=== PATIENT | female | born 1970 | race Caucasian/White ===

== ENCOUNTER 2017-06-20 08:00 | Outpatient (RCR) | payer SELFPAY ==
[~2017-06-20 08:00] MED LIST: ACET-1966 PO; DIPH-543 PO; ESTR1PAT72 TD; HYDR2TAB4 PO; IBUP-1671 PO; Ibuprofen PO; LOPE2CAP88 PO; PEN400 PO; PEP PO; PER PO; THIA100T58 PO; TRIA15CR40 TP; ZINC56.718 TP
[2017-06-20 14:34] LABS: PLATELET COUNT, AUTOMATED 218 K/uL (150-450)
[2017-06-20 14:52] LABS: INR 2.41
[2017-06-21] MEDS ORDERED: FLUO-201 PO (09:44)
[2017-06-21] MEDS ORDERED: POTA99TA6 PO (09:44)
[2017-06-21] MEDS ORDERED: FLUO-177 PO (11:44)
[2017-06-21] MEDS ORDERED: CYAN25004 PO (11:45)
[2017-06-22 10:28] VITALS: BMI 24.5
[2017-06-22] MEDS ORDERED: LACT10SO58 PO (10:31)
[2017-06-22] MEDS ORDERED: SPIR25TA78 PO (10:31)
== END 2017-06-20 18:00 | disposition home or self-care (01) ==
LOC: US 08:00 → LAB 14:18 → EDSTATUS 14:53 → US 18:00
PROVIDERS: ATTEND Family Medicine
DX: Z01.812 Encounter for preprocedural laboratory examination (principal); K74.69 Other cirrhosis of liver
CPT/HCPCS: 36415; 82040; 82247; 82310; 82374; 82435; 82565; 82947; 84075; 84132; 84155; 84295; 84450; 84460; 84520; 85025; 85610; 85730

== ENCOUNTER 2017-07-22 20:43 | Inpatient (IN) | payer BC ==
[~2017-07-22] VITALS: Ht 165.1 cm; Wt 59.9 kg
[~2017-07-22 20:43] MED LIST changes: +CYAN25004 PO; +FLUO-177 PO; +FLUO-201 PO; +LACT10SO58 PO; +POTA99TA6 PO; +SPIR25TA78 PO
--- NOTE | 2017-07-22 20:56 | ER Report ---
History and Physical Time Seen By MD: 20:56 HPI/ROS CHIEF COMPLAINT: epigastric and chest pain HISTORY OF PRESENT ILLNESS: This is a 47 year old female. She came to the ER tonight because of severe chest and epigastric area pain. Started about 2 hours ago. Worsens with movement and deep breaths. Started after eating tonight. Has end stage alcoholic cirrhosis. Has had frequent paracentesis from Dr. Moy recently. She has been sober for 6 months, but had a relapse on through Tuesday last week. Last drink on Tuesday. Jaundice and icterus present, but stable and unchanged. She has occasional abdominal pains, but this feels different to her. She has had subjective fevers and chills at home as well. Was admitted in June for hypokalemia and anemia. She has diffuse muscle and joint pains as well. Bowel movement today, and no change there. Normal urination. No sore throat or congestion or cough. REVIEW OF SYSTEMS: As above. Allergies: Coded Allergies: No Known Drug Allergies (Verified , 06/21/17) Home Meds Active Scripts Lactulose (LACTULOSE) 10 Gm/15 Ml Solution, 10 GM PO QDAY, #473 ML Prov:MARIAM SEAY DO 06/22/17 Spironolactone (SPIRONOLACTONE) 25 Mg Tablet, 25 MG PO QDAY, #30 TAB Prov:MARIAM SEAY DO 06/22/17 Thiamine Hcl (VITAMIN B-1) 100 Mg Tablet, 100 MG PO QDAY for 30 Days, #30 TAB Prov:RAQUEL PIZARRO MD 04/07/17 Reported Medications Cyanocobalamin (Vitamin B-12) (Vitamin B12) 2,500 Mcg Tablet, 1 TAB PO QDAY 06/21/17 Fluoxetine Hcl (FLUOXETINE HCL) 20 Mg Capsule, 1 CAP PO QDAY, CAPSULE 06/21/17 Potassium Gluconate (POTASSIUM) 99 Mg Tablet, 99 MG PO 06/21/17 Reviewed Nurses Notes: Yes Hx Smoking: No Smoking Status: Never Smoker Hx Substance Use Disorder: No Hx Alcohol Use: Yes Constitutional Vital Sign - Last 24 Hours 07/22/17 07/22/17 07/22/17 07/22/17 20:48 20:55 21:13 21:43 Temp 99.6 Pulse 80 83 Resp 23 49 20 B/P (MAP) 102/57 (72) 102/57 Pulse Ox 98 100 97 O2 Delivery Room Air Physical Exam General Appearance: The patient is alert. No acute distress. Eyes: Pupils are equal, round. Reactive to light. She has scleral icterus and jaundice. Extraocular movements are intact. ENT: Mucous membranes are moist. Normal oral mucosa. Posterior oropharynx is normal. Neck: Supple and non tender. No lymphadenopathy. Respiratory: Lungs are clear to auscultation. She does have some increase in her epigastric and anterior chest pain with deep breaths. Cardiovascular: Regular rate and rhythm. No murmurs, gallops or rubs. Gastrointestinal: Abdomen is tender throughout. Distended with fluid wave. Worst pain in the epigastric area. Distended. Guarding with rebound. Hypoactive bowel sounds. No costovertebral angle tenderness with percussion. Neurological: Alert and oriented x3. No focal neurologic deficits. Generalized weakness. Skin: Warm and dry. Jaundice Musculoskeletal: Extremities have aches. Full range of motion. No tenderness in palpation of the cervical, thoracic and lumbar spine. DIFFERENTIAL DIAGNOSIS: After history and physical exam, differential diagnosis was considered for patient with epigastric and chest pain due to cardiac workup and look for other causes, with her jaundice and ascites I worry about spontaneous bacterial peritonitis. She has a history of anemia and hypokalemia on her last visit so we'll need to look at electrolytes and her blood count. Medical Decision Making Data Points Result Diagram: 07/22/17205407/22/172054 Laboratory Hematology Test 07/22/17 20:55 07/22/17 21:23 Red Blood Count 2.14 M/uL (4.17-5.56) Mean Corpuscular Volume 101.5 fL (80.0-96.0) Mean Corpuscular Hemoglobin 35.5 pg (26.0-33.0) Mean Corpuscular Hemoglobin Concent 35.0 g/dL (32.0-36.0) Red Cell Distribution Width 19.1 % (11.5-14.5) Mean Platelet Volume 7.3 fL (7.2-11.1) Neutrophils (%) (Auto) 67.1 % (39.4-72.5) Lymphocytes (%) (Auto) 24.0 % (17.6-49.6) Monocytes (%) (Auto) 6.3 % (4.1-12.4) Eosinophils (%) (Auto) 1.9 % (0.4-6.7) Basophils (%) (Auto) 0.7 % (0.3-1.4) Nucleated RBC Relative Count (auto) 0.1 /100WBC Neutrophils # (Auto) 11.1 K/uL (2.0-7.4) Lymphocytes # (Auto) 4.0 K/uL (1.3-3.6) Monocytes # (Auto) 1.0 K/uL (0.3-1.0) Eosinophils # (Auto) 0.3 K/uL (0.0-0.5) Basophils # (Auto) 0.1 K/uL (0.0-0.1) Nucleated RBC Absolute Count (auto) 0.01 K/uL Peripheral Blood Smear Y/N Sodium Level 131 mmol/L (137-145) Potassium Level 2.4 mmol/L (3.5-5.0) Chloride Level 95 mmol/L (98-107) Carbon Dioxide Level 25 mmol/L (22-31) Blood Urea Nitrogen 9 mg/dl (7-18) Creatinine 0.70 mg/dl (0.52-1.04) Glomerular Filtration Rate Calc > 60.0 Random Glucose 101 mg/dl (75-110) Calcium Level 7.9 mg/dl (8.4-10.2) Total Bilirubin 7.2 mg/dl (0.2-1.3) Aspartate Amino Transf (AST/SGOT) 111 U/L (0-35) Alanine Aminotransferase (ALT/SGPT) 39 U/L (0-56) Alkaline Phosphatase 212 U/L (0-126) Troponin I < 0.012 ng/ml Total Protein 7.6 gm/dl (6.3-8.2) Albumin 2.6 g/dl (3.5-5.0) Amylase Level 72 U/L (0-110) Lipase 206 U/L (23-300) Lactate 4.7 mmol/L (0.7-2.1) Chemistry Test 07/22/17 20:55 07/22/17 21:23 White Blood Count 16.5 k/uL (4.5-11.0) Red Blood Count 2.14 M/uL (4.17-5.56) Hemoglobin 7.6 g/dL (12.0-16.0) Hematocrit 21.8 % (34.0-47.0) Mean Corpuscular Volume 101.5 fL (80.0-96.0) Mean Corpuscular Hemoglobin 35.5 pg (26.0-33.0) Mean Corpuscular Hemoglobin Concent 35.0 g/dL (32.0-36.0) Red Cell Distribution Width 19.1 % (11.5-14.5) Platelet Count 150 K/uL (150-450) Mean Platelet Volume 7.3 fL (7.2-11.1) Neutrophils (%) (Auto) 67.1 % (39.4-72.5) Lymphocytes (%) (Auto) 24.0 % (17.6-49.6) Monocytes (%) (Auto) 6.3 % (4.1-12.4) Eosinophils (%) (Auto) 1.9 % (0.4-6.7) Basophils (%) (Auto) 0.7 % (0.3-1.4) Nucleated RBC Relative Count (auto) 0.1 /100WBC Neutrophils # (Auto) 11.1 K/uL (2.0-7.4) Lymphocytes # (Auto) 4.0 K/uL (1.3-3.6) Monocytes # (Auto) 1.0 K/uL (0.3-1.0) Eosinophils # (Auto) 0.3 K/uL (0.0-0.5) Basophils # (Auto) 0.1 K/uL (0.0-0.1) Nucleated RBC Absolute Count (auto) 0.01 K/uL Peripheral Blood Smear Y/N Glomerular Filtration Rate Calc > 60.0 Calcium Level 7.9 mg/dl (8.4-10.2) Total Bilirubin 7.2 mg/dl (0.2-1.3) Aspartate Amino Transf (AST/SGOT) 111 U/L (0-35) Alanine Aminotransferase (ALT/SGPT) 39 U/L (0-56) Alkaline Phosphatase 212 U/L (0-126) Troponin I < 0.012 ng/ml Total Protein 7.6 gm/dl (6.3-8.2) Albumin 2.6 g/dl (3.5-5.0) Amylase Level 72 U/L (0-110) Lipase 206 U/L (23-300) Lactate 4.7 mmol/L (0.7-2.1) EKG/Imaging EKG Interpretation 12 lead EKG: Rhythm: Because of tremulousness, difficult to tell with artifact on the EKG but looks like it is sinus rhythm although the machine reads it as atrial fibrillation. It is difficult to tell. Rate is 82. Manito: normal QRS: normal ST segments: Nonspecific T waves but no elevation or depression Imaging Abdominal series with single view of the chest: 07/22/2017 9:13 PM HISTORY: Abdominal pain. COMPARISON:none. FINDINGS: There is dilated loop of small bowel in the left mid abdomen with positive small bowel gas. Small amount stool seen throughout colon. Abdominal soft tissues are grossly normal without suspicious lucencies or abnormal calcifications. No acute bony abnormality. The left lower lobe does show patchy hazy opacity in the retrocardiac area. The remaining lung michele are clear. No effusion or pneumothorax or discrete nodule. Old right rib fractures. No acute bony abnormality. IMPRESSION: 1. Abdominal findings suggestive early small bowel obstruction. Follow-up x-ray can reevaluate the bowel gas pattern. 2. Hazy opacities seen in the left retrocardiac area. This could be due to accentuation from the low lung volumes versus early infiltrate. I called report to WALTER TAYLOR at 07/22/2017 10:22 PM. Report Dictated By: Jay Jay Root at 07/22/2017 10:15 PM COMPUTED TOMOGRAPHY ABDOMEN AND PELVIS WITHOUT INTRAVENOUS CONTRAST DATE OF EXAM: 07/22/2017 10:26 PM INDICATION: Abdominal pain. COMPARISON: Same-day radiographs, CT abdomen and pelvis 03/25/2017. TECHNIQUE: Noncontrast abdomen and pelvis CT performed. Sagittal and coronal reconstructions were performed. One of the following dose optimization techniques was utilized in the performance of this exam: Automated exposure control; adjustment of the mA and/or kV according to the patient's size; or use of an iterative reconstruction technique. Specific details can be referenced in the facility's radiology CT exam operational policy. FINDINGS: Lung bases: Small volume left pleural effusion. Heart size is upper limit normal. Hypoattenuating blood pool. Liver: The liver is cirrhotic in appearance, and has likely decreased in volume since 03/25/2017 which could indicate worsened fibrosis. Venous collaterals noted. Gallbladder and bile ducts: Probable gallstones. No definite evidence of cholecystitis. Spleen: Mild splenomegaly. Pancreas: Unremarkable. Adrenals: Normal. Kidneys, ureters and bladder: Kidneys and ureters are grossly normal. Urinary bladder is decompressed. Retroperitoneum and aorta: Normal caliber aorta with mild atherosclerotic ossification. No adenopathy. GI tract, mesentery and peritoneum: There is fatty infiltration wall of the cecum and ascending colon. No evidence of obstruction. No pneumatosis or pneumoperitoneum. Moderate to large volume ascites, significantly increased compared to the prior examination. Uterus and adnexa: Probable hysterectomy. Bones and soft tissues: No suspicious lesion. Diffuse body wall edema remote right rib fractures. Incompletely imaged bilateral breast implants. IMPRESSION: 1. Cirrhotic appearing liver that has likely decreased in volume since 2016 which could indicate worsened fibrosis. 2. Moderate to large volume of ascites, significantly increased compared to prior 03/25/2017. 3. Small left pleural effusion. 4. Hypoattenuating blood pool suggestive of anemia. Report Dictated By: Juan Antonio Sabillon MD at 07/22/2017 10:59 PM ED Course/Re-evaluation Clinical Indication for ER IV: Hydration, IV Access ED Course After the initial evaluation, the patient had a liter of normal saline started at 150cc/hr. She was given Morphine and Zofran for pain and nausea. Labs showed critical values of her H/H and potassium. Lactate was elevated. She was afebrile , but had been having subjective fevers. Based on her ascites and leukocytosis and pain, concerned about possibility of spontaneous bacterial peritonitis as well. Abdominal x-ray and CT scan as noted above. Discussed the case with Dr. Estrada for admission and consulted general surgery as well for paracentesis. Started Zosyn in the ER and obtained blood and urine cultures. Decision to Disposition Date: Jul 22, 2017 Decision to Disposition Time: 23:30 Depart Departure Latest Vital Signs Vital Signs Date Time Temp Pulse Resp B/P (MAP) Pulse Ox O2 Delivery O2 Flow Rate FiO2 07/22/17 21:43 20 97 07/22/17 21:13 83 07/22/17 20:55 99.6 102/57 Room Air Impression: Primary Impression: Anemia Additional Impressions: Hypokalemia Ascites due to alcoholic cirrhosis Condition: Condition Unchanged Disposition: Admitted from ER Referrals: AMIRAH RUTHERFORD DO (PCP) Problem Qualifiers Primary Impression: Anemia Anemia type: unspecified type Qualified Codes: D64.9 - Anemia, unspecified WALTER TAYLOR MD Jul 22, 2017 20:56
[2017-07-22] MEDS ORDERED: MORPHINE 4 MG/ML SYR IVP ONE (21:15)
[2017-07-22] MEDS ORDERED: ONDANSETRON 4 MG/2 ML VIAL IVP ONE (21:15)
[2017-07-22] MEDS ORDERED: PANTOPRAZOLE SOD 40 MG IV VIAL IVP ONE (21:15)
[2017-07-22 21:23] LABS: PLATELET COUNT, AUTOMATED 150 K/uL (150-450)
--- NOTE | 2017-07-22 21:31 | EKG ---
FACILITY: [facility] - [place] PATIENT NAME: QUITA MCLAUGHLIN : [id number] MR: [id number] V: [id number] EXAM DATE: ORDERING PHYSICIAN: WALTER TAYLOR TECHNOLOGIST: Test Reason : Blood Pressure : / mmHG Vent. Rate : 082 BPM Atrial Rate : 078 BPM P-R Int : 000 ms QRS Dur : 050 ms QT Int : 456 ms P-R-T Axes : 000 041 187 degrees QTc Int : 532 ms Diffuse artifact makes interpretation difficult Appears to be sinus rhythm with frequent premature atrial complexes Recommend repeat EKG Abnormal ECG Confirmed by MOOSE LAZAR ([id number]) on 07/23/2017 6:04:45 AM Referred By: Confirmed By:MOOSE LAZAR
[2017-07-22] MEDS ORDERED: NS(*) 0.9% 1000 ML BAG 1,000 ML IV ONE (21:40)
[2017-07-22] MEDS ORDERED: PIPERACILLIN/TAZO*3.375GM VIAL 3.375 GM in NS(*) 0.9% 100 ML ADDVANT BAG 100 ML IVPB ONE (21:55)
--- NOTE | 2017-07-22 22:27 | RADIOLOGY IMAGING REPORT ---
FACILITY: [facility] [place] PATIENT NAME: Awa Grace : 1970 MR: [id number] V: [id number] EXAM DATE: ORDERING PHYSICIAN: WALTER TAYLOR TECHNOLOGIST: Location: Patient: Awa Grace : 1970 Visit/Account:[id number] Date of Sevice: 07/22/2017 Abdominal series with single view of the chest: 07/22/2017 9:13 PM HISTORY: Abdominal pain. COMPARISON:none. FINDINGS: There is dilated loop of small bowel in the left mid abdomen with positive small bowel gas . Small amount stool seen throughout colon. Abdominal soft tissues are grossly normal without suspici ous lucencies or abnormal calcifications. No acute bony abnormality. The left lower lobe does show patchy hazy opacity in the retrocardiac area. The remaining lung field s are clear. No effusion or pneumothorax or discrete nodule. Old right rib fractures. No acute bony a bnormality. IMPRESSION: 1. Abdominal findings suggestive early small bowel obstruction. Follow-up x-ray can reevaluate the amanda wel gas pattern. 2. Hazy opacities seen in the left retrocardiac area. This could be due to accentuation from the low lung volumes versus early infiltrate. I called report to WALTER TAYLOR at 07/22/2017 10:22 PM. Report Dictated By: Jay Jay Root at 07/22/2017 10:15 PM Report E-Signed By: Jay Jay Root at 07/22/2017 10:23 PM WSN:[id number]
[2017-07-22] MEDS ORDERED: KCL (*) 20 MEQ/100 ML PREMIX 100 ML IV ONE (22:50)
--- NOTE | 2017-07-22 23:15 | RADIOLOGY IMAGING REPORT ---
FACILITY: [facility] PATIENT NAME: Awa Grace : 1970 MR: [id number] V: [id number] EXAM DATE: ORDERING PHYSICIAN: WALTER TAYLOR TECHNOLOGIST: Location: [facility] Patient: Awa Grace : 1970 Visit/Account:[id number] Date of Sevice: 07/22/2017 COMPUTED TOMOGRAPHY ABDOMEN AND PELVIS WITHOUT INTRAVENOUS CONTRAST DATE OF EXAM: 07/22/2017 10:26 PM INDICATION: Abdominal pain. COMPARISON: Same-day radiographs, CT abdomen and pelvis 03/25/2017. TECHNIQUE: Noncontrast abdomen and pelvis CT performed. Sagittal and coronal reconstructions were pe rformed. One of the following dose optimization techniques was utilized in the performance of this e xam: Automated exposure control; adjustment of the mA and/or kV according to the patient's size; or u se of an iterative reconstruction technique. Specific details can be referenced in the facility's r adiology CT exam operational policy. FINDINGS: Lung bases: Small volume left pleural effusion. Heart size is upper limit normal. Hypoattenuating b lood pool. Liver: The liver is cirrhotic in appearance, and has likely decreased in volume since 03/25/2017 whic h could indicate worsened fibrosis. Venous collaterals noted. Gallbladder and bile ducts: Probable gallstones. No definite evidence of cholecystitis. Spleen: Mild splenomegaly. Pancreas: Unremarkable. Adrenals: Normal. Kidneys, ureters and bladder: Kidneys and ureters are grossly normal. Urinary bladder is decompress ed. Retroperitoneum and aorta: Normal caliber aorta with mild atherosclerotic ossification. No adenopat hy. GI tract, mesentery and peritoneum: There is fatty infiltration wall of the cecum and ascending colo n. No evidence of obstruction. No pneumatosis or pneumoperitoneum. Moderate to large volume ascite s, significantly increased compared to the prior examination. Uterus and adnexa: Probable hysterectomy. Bones and soft tissues: No suspicious lesion. Diffuse body wall edema remote right rib fractures. Incompletely imaged bilateral breast implants. IMPRESSION: 1. Cirrhotic appearing liver that has likely decreased in volume since 03/25/2017 which could indicat e worsened fibrosis. 2. Moderate to large volume of ascites, significantly increased compared to prior 03/25/2017. 3. Small left pleural effusion. 4. Hypoattenuating blood pool suggestive of anemia. Report Dictated By: Juan Antonio Sabillon MD at 07/22/2017 10:59 PM Report E-Signed By: Juan Antonio Sabillon MD at 07/22/2017 11:10 PM WSN:[id number]
[2017-07-22] MEDS ORDERED: KCL 2 MEQ/ML 20 MEQ/10 ML VIAL 20 MEQ in NS(*) 0.9% 1000 ML BAG 1,000 ML IV PRN (23:36)
[2017-07-23] VITALS (13 sets, daily range): BP systolic 87–108; BP diastolic 53–73; Ht 165.1 cm; Wt 59.9 kg
[2017-07-23] MEDS: cefTRIAXone 2 GM VIAL IVP SCH
--- NOTE | 2017-07-23 00:10 | Procedure Note ---
Paracentesis Procedure Note Reason for Paracentesis: Ascites Consent Signed: Yes Paracentesis Location: RLQ U/S Guided Paracentesis: No Blood Loss: None Complications: None Anesthesia Used: 1% Lidocaine CC's of Anesthesia: 5 Amount of Fluid - cc's: 4500 Fluid Characteristics: Cloudy Lab Analysis Ordered: Yes MARIAM WALKER MD Jul 23, 2017 00:10
--- NOTE | 2017-07-23 00:18 | History & Physical ---
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 She reports "relapsing" with 4-5 days of drinking last week. Her last drink was on Tuesday07/17/17. She states she has had increased abdominal girth, abdominal pain, and lower extremity edema. Her appetite has diminished. The abdominal pain became significantly worse over the past 24 hours or so. She denied any obvious fevers. She did report some dyspnea and inability to get a deep breath. She was evaluated in the ER and found to be significantly anemic. She also has an elevated WBC count with massive ascites. She was seen by Dr. Jarrett and had diagnostic and therapeutic paracentesis. She was recommended for admission. History Problems: (1) Alcoholic hepatitis Status: Acute (2) Hepatic encephalopathy Status: Resolved (3) Ascites due to alcoholic cirrhosis Status: Chronic (4) Cirrhosis Status: Chronic (5) Anemia Status: Chronic (6) Hypomagnesemia Status: Chronic (7) History of hysterectomy Status: Resolved (8) Alcohol abuse Status: Chronic Home Meds Active Scripts Lactulose (LACTULOSE) 10 Gm/15 Ml Solution, 10 GM PO QDAY, #473 ML Prov:MARIAM SEAY DO 06/22/17 Spironolactone (SPIRONOLACTONE) 25 Mg Tablet, 25 MG PO QDAY, #30 TAB Prov:MARIAM SEAY DO 06/22/17 Thiamine Hcl (VITAMIN B-1) 100 Mg Tablet, 100 MG PO QDAY for 30 Days, #30 TAB Prov:RAQUEL PIZARRO MD 04/07/17 Reported Medications Cyanocobalamin (Vitamin B-12) (Vitamin B12) 2,500 Mcg Tablet, 1 TAB PO QDAY 06/21/17 Fluoxetine Hcl (FLUOXETINE HCL) 20 Mg Capsule, 1 CAP PO QDAY, CAPSULE 06/21/17 Potassium Gluconate (POTASSIUM) 99 Mg Tablet, 99 MG PO 06/21/17 Allergies: Coded Allergies: No Known Drug Allergies (Verified , 06/21/17) Patient History: Unobtainable due to patient's condition Hx Smoking: No Smoking Status: Never Smoker Caffeine Intake: Coffee Caffeine/Cups Per Day: 1 TO 3 CUPS PER DAY Hx Alcohol Use: Yes Hx Substance Use Disorder: No Review of Systems Constitutional: No Fever Cardiovascular: Chest Pain Gastrointestinal: Nausea, Diarrhea, No Hematemesis, No Hematochezia, No Melena , Abdominal Pain Exam Vital Signs Vital Signs Date Time Temp Pulse Resp B/P (MAP) Pulse Ox O2 Delivery O2 Flow Rate FiO2 07/22/17 23:13 79 8 103/68 (80) 100 07/22/17 20:55 99.6 Room Air General Appearance: Alert, Awake Neuro: No Gross deficits Eyes: Other (sclera icteric) Cardiovascular: Regular Rate and Rhythm (with systolic murmur) Respiratory: Clear to Auscultation Chest: No Tenderness GI: Other (significantly distended, but improved following paracentesis) Extremities: Warm, Perfused, Edema (2+ both lower extremities) Integumentary: Generalized Fragile Skin Medical Decision Making Data Points Result Diagram: 07/22/17205407/22/172054 Item Value Date Time Lipase 206 U/L 07/22/172054 Amylase Level 72 U/L 07/22/172054 Albumin 2.6 g/dl L 07/22/172054 Total Protein 7.6 gm/dl 07/22/172054 Troponin I < 0.012 ng/ml 07/22/172054 Alkaline Phosphatase 212 U/L H 07/22/172054 Alanine Aminotransferase (ALT/SGPT) 39 U/L 07/22/172054 Aspartate Amino Transf (AST/SGOT) 111 U/L H 07/22/172054 Total Bilirubin 7.2 mg/dl H 07/22/172054 Calcium Level 7.9 mg/dl L 07/22/172054 Lactate 4.7 mmol/L *H 07/22/172122 Assessment and Plan Problems: (1) Ascites due to alcoholic cirrhosis Status: Chronic Assessment & Plan: She has had repeat paracentesis with Dr. Jarrett and has had some relief. Will evaluate fluid for possible peritonitis. Will cover with IV Rocephin 2gm q24hrs pending cultures. She will continue on her spironolactone. (2) Anemia Status: Chronic Assessment & Plan: No obvious source for blood loss. Will transfuse when we can get blood available (she has an antibody). Will review her previous workup. (3) Hypokalemia Status: Acute Assessment & Plan: Will replace K+ with IV fluids. Watch electrolytes. Venous Thromboembolism Antithrombotics Is Pt On Any Antithrombotics?: No Prophylaxis Tx Contraindicated Pharmacological Contraindicati: Liver Disease Exam Sepsis Risk: No Definite Risk MOOSE LAZAR MD Jul 23, 2017 00:18
[2017-07-23] MEDS: KCL/NS* 20 MEQ/1000 ML PREMIX 1,000 ML IV SCH ×2 (00:59→11:30)
[2017-07-23] MEDS: MORPHINE 2 MG/ML SYR IVP PRN ×7 (01:10→22:54)
[2017-07-23 06:22] LABS: INR 2.3
[2017-07-23 06:23] LABS: PLATELET COUNT, AUTOMATED 102 K/uL (150-450)
--- NOTE | 2017-07-23 06:41 | EKG ---
FACILITY: [facility] PATIENT NAME: QUITA MCLAUGHLIN : [id number] MR: [id number] V: [id number] EXAM DATE: ORDERING PHYSICIAN: MOOSE LAZAR TECHNOLOGIST: Test Reason : Blood Pressure : / mmHG Vent. Rate : 073 BPM Atrial Rate : 073 BPM P-R Int : 146 ms QRS Dur : 072 ms QT Int : 474 ms P-R-T Axes : 029 038 028 degrees QTc Int : 522 ms Normal sinus rhythm Prolonged QT Abnormal ECG When compared with ECG of 22-JUL-2017 20:55, Previous ECG has undetermined rhythm, needs review ST no longer depressed in Lateral leads Nonspecific T wave abnormality, improved in Inferior leads Nonspecific T wave abnormality has replaced inverted T waves in Anterior leads Confirmed by GAVIN JACOBS ([id number]) on 07/23/2017 8:37:56 PM Referred By: Confirmed By:GAVIN JACOBS
[2017-07-23] MEDS: LACTULOSE 10 GM/15 ML UDCUP PO SCH (09:56)
[2017-07-23] MEDS: THIAMINE HCL 100 MG TAB PO SCH (09:56)
[2017-07-23] MEDS: SPIRONOLACTONE 25 MG TAB PO SCH (09:56)
[2017-07-23] MEDS ORDERED: INFLUENZA VIRUS VAC 0.5 ML SYR IM ONLY ONE (10:00)
[2017-07-23] MEDS ORDERED: KCL (*) 20 MEQ/100 ML PREMIX 100 ML IV ONE (10:30)
[2017-07-23] MEDS ORDERED: FOLI0.4T56 PO (10:53)
[2017-07-23] MEDS ORDERED: [UNRECOGNIZED DRUG - CODE] PO (10:53)
[2017-07-23] MEDS ORDERED: THIA250T9 PO (10:53)
[2017-07-23] MEDS: FLUoxetine HCL 20 MG CAP PO SCH (11:29)
[2017-07-23] MEDS: PANTOPRAZOLE SOD 40 MG TABEC PO SCH (11:29)
--- NOTE | 2017-07-23 11:53 | Hospitalist Progress Note ---
Subjective Progress Notes Subjective The patient complains of some upper abdominal pain. It is better when she is lying down and worse when she is upright. Physical Exam Vital Signs Date Time Temp Pulse Resp B/P (MAP) Pulse Ox O2 Delivery O2 Flow Rate FiO2 07/23/17 11:12 98.1 72 18 92/60 (71) 91 Room Air 07/23/17 06:52 2.0 Intake and Output 07/24/17 07:00 # Voids 1 General Appearance: Alert, Awake, Other (Very jaundiced. Appears chronically ill.) Neuro: No Gross deficits Eyes: Other (Sclera are jaundiced.) Neck: No Masses Cardiovascular: Regular Rate and Rhythm (With 3/6 BETHANY.) Respiratory: Clear to Auscultation (Anteriorly.) GI: Other (Soft, distended. Tender throughout but moreso in upper quadrants. Unable to palpate deeply to assess for mass or organomegaly.) Lymph: Cervical Nodes Benign Extremities: Warm, Perfused, Other (Edema both LE, L>R) Integumentary: Generalized Fragile Skin, Other (Jaundiced.) Psych: Alert & Oriented X3, Appropriate Mood & Affect Result Diagram: 07/23/17 0600 07/23/17 0600 Assessment and Plan Problems: (1) Ascites due to alcoholic cirrhosis Status: Chronic Assessment & Plan: She has had repeat paracentesis with Dr. Jarrett and has had some relief. Peritoneal fluid culture pending. No organisms on gram stain. Will cover with IV Rocephin 2gm q24hrs pending cultures. She will continue on her spironolactone. (2) Anemia Status: Chronic Assessment & Plan: No obvious source for blood loss. Will transfuse when we can get blood available (she has an antibody). Will review her previous workup. Hemoglobin has dropped again today. Hopefully we will get blood this afternoon. (3) Hypokalemia Status: Acute Assessment & Plan: Potassium improved today. Will give an additional 20meq K- rider and continue potassium in her IV fluids. Time Spent on Plan of Care: < 30 min Exam Sepsis Risk: No Definite Risk Problem Qualifiers (1) Anemia: Anemia type: unspecified type Qualified Codes: D64.9 - Anemia, unspecified GAVIN LAZAR MD Jul 23, 2017 11:53
[2017-07-23] MEDS ORDERED: NS(*) 0.9% 500 ML BAG 500 ML ONE (13:13)
[2017-07-24] VITALS (9 sets, daily range): BP systolic 103–149; BP diastolic 62–89
[2017-07-24] MEDS: cefTRIAXone 2 GM VIAL IVP SCH (00:07)
[2017-07-24] MEDS: MORPHINE 2 MG/ML SYR IVP PRN ×3 (02:06→08:53)
[2017-07-24] MEDS: KCL/NS* 20 MEQ/1000 ML PREMIX 1,000 ML IV SCH (04:03)
[2017-07-24 05:53] LABS: PLATELET COUNT, AUTOMATED 107 K/uL (150-450)
[2017-07-24] MEDS: LACTULOSE 10 GM/15 ML UDCUP PO SCH (08:51)
[2017-07-24] MEDS: PANTOPRAZOLE SOD 40 MG TABEC PO SCH (08:52)
[2017-07-24] MEDS: THIAMINE HCL 100 MG TAB PO SCH (08:52)
[2017-07-24] MEDS: SPIRONOLACTONE 25 MG TAB PO SCH (08:52)
[2017-07-24] MEDS: FLUoxetine HCL 20 MG CAP PO SCH (08:52)
[2017-07-24] MEDS ORDERED: SPIRONOLACTONE 25 MG TAB PO ONE (09:45)
[2017-07-24] MEDS: FUROSEMIDE 20 MG TAB PO SCH (10:40)
[2017-07-24] MEDS ORDERED: MAGNESIUM SUL* 4 GM/100 ML BAG 100 ML IVPB ONE (11:20)
--- NOTE | 2017-07-24 11:21 | Hospitalist Progress Note ---
Subjective Progress Notes Subjective Still having epigastric pain, but improved from admission. Physical Exam Vital Signs Date Time Temp Pulse Resp B/P (MAP) Pulse Ox O2 Delivery O2 Flow Rate FiO2 07/24/17 11:11 79 16 103/67 (79) 90 07/24/17 11:07 98.8 Room Air 07/24/17 07:02 0.5 Intake and Output 07/25/17 07:00 Intake Total 1999 ml Balance 1999 ml Intake Oral 120 ml IV Total 1879 ml General Appearance: Alert, Awake, No Acute Distress GI: Other (Distended, mild tenderness with epigastric palpation, no periotoneal signs, caput medusa seen) Extremities: Edema (1-2+ pitting to mid shins) Integumentary: Jaundice Result Diagram: 07/24/1753207/24/17532 Assessment and Plan Problems: (1) Ascites due to alcoholic cirrhosis Status: Chronic Assessment & Plan: She has had repeat paracentesis with Dr. Jarrett on 07/23 and has had some relief. Peritoneal fluid culture pending. No organisms on gram stain. On IV Rocephin 2gm q24hrs pending cultures. Will increase Spironolactone to 50mg a day and add Lasix 20mg a day. Saline lock. (2) Anemia Status: Chronic Assessment & Plan: No obvious source for blood loss. Transfused 2 units of blood on 07/23. Hgb improved. Iron, B12, and folate studies a month ago were wnl. Occult stool test ordered, but she hasn't had a BM. Will follow (3) Hypokalemia Status: Acute Assessment & Plan: Potassium improved today. She has received supplementation. Magnesium low so will replace and follow. Will follow closely with the addition of Lasix. Exam Sepsis Risk: No Definite Risk Problem Qualifiers (1) Anemia: Anemia type: unspecified type Qualified Codes: D64.9 - Anemia, unspecified DOMENICO PATE MD Jul 24, 2017 11:21
[2017-07-24] MEDS: oxyCODONE HCL 5 MG CAP PO PRN ×2 (15:52→22:15)
[2017-07-25] MEDS: cefTRIAXone 2 GM VIAL IVP SCH (00:05)
[2017-07-25 03:11] VITALS: BP 108/68
[2017-07-25] MEDS: oxyCODONE HCL 5 MG CAP PO PRN (04:14)
[2017-07-25 05:45] LABS: PLATELET COUNT, AUTOMATED 119 K/uL (150-450)
[2017-07-25 06:15] LABS: INR 1.94
[2017-07-25 08:30] VITALS: BP 116/73
[2017-07-25] MEDS: PANTOPRAZOLE SOD 40 MG TABEC PO SCH (08:35)
[2017-07-25] MEDS: FUROSEMIDE 20 MG TAB PO SCH (08:35)
[2017-07-25] MEDS: LACTULOSE 10 GM/15 ML UDCUP PO SCH (08:36)
[2017-07-25] MEDS: FLUoxetine HCL 20 MG CAP PO SCH (08:36)
[2017-07-25] MEDS: THIAMINE HCL 100 MG TAB PO SCH (08:36)
[2017-07-25] MEDS ORDERED: SPIRONOLACTONE 25 MG TAB PO SCH (09:00)
[2017-07-25] MEDS ORDERED: OXYC5TAB38 PO (10:50)
[2017-07-25] MEDS ORDERED: LACT10SO58 PO (10:50)
[2017-07-25] MEDS ORDERED: FURO-45 PO (10:50)
--- NOTE | 2017-07-25 11:10 | Hospitalist Depart ---
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 She has had repeat large volume paracentesis with Dr. Walker on 07/23 and had some relief. Peritoneal fluid culture is negative thus far. No organisms on gram stain. She was initially placed on empiric antibiotics with IV Rocephin 2gm q24hrs pending culture results. We will continue Spironolactone to 25mg a day and resume her Lasix 20mg a day. She will most likely need repeat paracentesis for symptoms. Will arrange for follow up with Dr. Moy as an outpatient - he has been doing her paracenteses up to this point. (2) Anemia Status: Chronic Hospital Course & Plan: No obvious source for blood loss. Transfused 2 units of blood on 07/23. Hgb/Hct improved and remained stable. Iron, B12, and folate studies a month ago were in normal range. Occult stool test was negative. She will need periodic monitoring. (3) Hypokalemia Status: Acute Hospital Course & Plan: Due to diuretics and loose stools (lactulose). She will need periodic lab monitoring with the resumption of Lasix. Departure Weight (Pounds): 132 Weight (Ounces): 2.0 Result Diagram: 07/25/1753307/25/17533 Item Value Date Time White Blood Count 16.5 k/uL H 07/22/172054 Hemoglobin 7.6 g/dL *L 07/22/172054 Hematocrit 21.8 % *L 07/22/172054 Platelet Count 150 K/uL 07/22/172054 Platelet Count 102 K/uL L 07/23/17599 Hematocrit 17.9 % *L 07/23/17599 Hemoglobin 6.3 g/dL *L 07/23/17599 White Blood Count 9.0 k/uL 07/23/17599 White Blood Count 7.4 k/uL 07/24/17532 Hemoglobin 8.8 g/dL *L # 07/24/17532 Hematocrit 24.8 % *L # 07/24/17532 Platelet Count 107 K/uL L 07/24/17532 Sodium Level 131 mmol/L L 07/22/172054 Potassium Level 2.4 mmol/L *L 07/22/172054 Chloride Level 95 mmol/L L 07/22/172054 Carbon Dioxide Level 25 mmol/L 07/22/172054 Blood Urea Nitrogen 9 mg/dl 07/22/172054 Creatinine 0.70 mg/dl 07/22/172054 Glomerular Filtration Rate Calc > 60.0 07/22/172054 Random Glucose 101 mg/dl 07/22/172054 Calcium Level 7.9 mg/dl L 07/22/172054 Total Bilirubin 7.2 mg/dl H 07/22/172054 Aspartate Amino Transf (AST/SGOT) 111 U/L H 07/22/172054 Alanine Aminotransferase (ALT/SGPT) 39 U/L 07/22/172054 Alkaline Phosphatase 212 U/L H 07/22/172054 Troponin I < 0.012 ng/ml 07/22/172054 Total Protein 7.6 gm/dl 07/22/172054 Albumin 2.6 g/dl L 07/22/172054 Amylase Level 72 U/L 07/22/172054 Lipase 206 U/L 07/22/172054 Lactate 4.7 mmol/L *H 07/22/172122 Lactate 1.2 mmol/L 07/23/17599 Lipase 50 U/L 07/24/17532 Albumin 2.1 g/dl L 07/24/17532 Total Protein 6.5 gm/dl 07/24/17 05 Ammonia 50 UMOL/L H 07/24/17 05 Alkaline Phosphatase 156 U/L H 07/24/17 05 Alanine Aminotransferase (ALT/SGPT) 47 U/L 07/24/17 05 Aspartate Amino Transf (AST/SGOT) 82 U/L H 07/24/17 05 Total Bilirubin 4.9 mg/dl H 07/24/17 05 Calcium Level 7.1 mg/dl L 07/24/17532 Random Glucose 83 mg/dl 07/24/17532 Creatinine 0.80 mg/dl 07/24/17532 Blood Urea Nitrogen 9 mg/dl 07/24/17532 Glomerular Filtration Rate Calc > 60.0 07/24/17532 Carbon Dioxide Level 25 mmol/L 1/21/18 0533 Chloride Level 104 mmol/L 07/24/17 0533 Potassium Level 3.6 mmol/L 07/24/17 0533 Sodium Level 135 mmol/L L 07/24/17 0533 Ammonia 26 UMOL/L 07/23/17 0600 Ammonia 29 UMOL/L 07/25/17 0534 Calcium Level 7.6 mg/dl L 07/25/17 0534 Total Bilirubin 5.2 mg/dl H 07/25/17 0534 Aspartate Amino Transf (AST/SGOT) 73 U/L H 07/25/17 0534 Alanine Aminotransferase (ALT/SGPT) 47 U/L 07/25/17 0534 Alkaline Phosphatase 162 U/L H 07/25/17 0534 Magnesium Level 2.2 mg/dl 07/25/17 0534 Total Protein 6.9 gm/dl 07/25/17 0534 Albumin 2.2 g/dl L 07/25/17 0534 Stool Occult Blood (IFOB) Negative 07/24/17 1710 Body Fluid Basophils 0 % 07/23/17 0012 Body Fluid Eosinophils 0 % 07/23/17 0012 Body Fluid Monocytes 52 % 07/23/17 0012 Body Fluid Lymphocytes 35 % 07/23/17 0012 Body Fluid Neutrophils 13 % 07/23/17 0012 Body Fluid RBC 1932 07/23/17 0012 Body Fluid WBC 56 07/23/17 0012 Prothrombin Time 22.6 seconds H 07/25/17 0534 Prothromb Time International Ratio 1.94 07/25/17 0534 Prothromb Time International Ratio 2.30 07/23/17 0600 Prothrombin Time 26.0 seconds H 07/23/17 0600 [facility] *LIVE* [address] [place] [address] [place] [address] TATYANA RYAN M.D., DIRECTOR OF LABORATORY SERVICES RENEA BARKER M.D., PATHOLOGIST RUN DATE: 07/25/17 Specimen Inquiry Report PAGE 1 RUN TIME: 1000 PATIENT: QUITA GRACE ACCT: [id number] LOC: [facility] U : [id number] AGE/SX: 47/F ROOM: 2268 REG : 07/22/[address]: MOOSE LAZAR MD : 1970 BED: 268 DIS : STATUS: ADM IN TLOC: SPEC #: [id number] GRAY: 07/22/17 STATUS: RES REQ #: [id number] RECD: 07/22/[address]: WALTER TAYLOR MD SOURCE: BLOOD ENTR: 07/22/[address]: AMIRAH VENEGAS DO [facility]: ORDERED: CULT BLOOD Procedure Result Verified BLOOD CULTURE Preliminary 07/25/17-1000 NO GROWTH AFTER 3 DAYS, REINCUBATED [facility] *LIVE* [address] [place] [place], [place] [address] TATYANA RYAN M.D., DIRECTOR OF LABORATORY SERVICES RENEA BARKER M.D., PATHOLOGIST RUN DATE: 07/25/17 Specimen Inquiry Report PAGE 1 RUN TIME: 1000 PATIENT: QUITA GRACE ACCT: [id number] LOC: MED U : [id number] AGE/SX: 47/F ROOM: 2268 REG : 07/22/[address]: MOOSE LAZAR MD : 1970 BED: 268 DIS : STATUS: ADM IN TLOC: SPEC #: [id number] GRAY: 07/22/17 STATUS: RES REQ #: [id number] RECD: 07/22/[address]: WALTER TAYLOR MD SOURCE: BLOOD ENTR: 07/22/17 [facility] DR: AMIRAH VENEGAS DO [facility]: ORDERED: CULT BLOOD Procedure Result Verified BLOOD CULTURE Preliminary 07/25/17-1000 NO GROWTH AFTER 3 DAYS, REINCUBATED [facility] [place] [place] *LIVE* [address] [place] [address] TATYANA RYAN M.D., DIRECTOR OF LABORATORY SERVICES RENEA BARKER M.D., PATHOLOGIST RUN DATE: 07/25/17 Specimen Inquiry Report PAGE 1 RUN TIME: 916 PATIENT: GRACEQUITA ACCT: [id number] LOC: MED U : [id number] AGE/SX: 47/F ROOM: 2268 REG : 07/22/[address]: MOOSE LAZAR MD : 1970 BED: 268 DIS : STATUS: ADM IN TLOC: SPEC #: [id number] GRAY: 07/23/17 STATUS: RES REQ #: [id number] RECD: 07/23/[address] [facility] [address]: MARIAM WALKER MD SOURCE: ASC FLD ENTR: 07/23/17 [facility] DR: MOOSE LAZAR MD SPDESC: AMIRAH VENEGAS DO ORDERED: CULT JEANMARIE A/A/YOSELIN COMMENTS: Has specimen been collected/obtained? Y Procedure Result Verified GRAM STAIN Final 07/23/17 NO ORGANISMS SEEN CULTURE BODY FLUID Preliminary 07/25/17 NO GROWTH AFTER 2 DAYS, REINCUBATED ANAEROBE CULTURE Final 07/25/17 NO GROWTH AFTER 2 DAYS Imaging PATIENT NAME: Quita Grace : 1970 MR: [id number] V: [id number] EXAM DATE: ORDERING PHYSICIAN: WALTER TAYLOR TECHNOLOGIST: [place] [facility] [place]: Quita Grace : 1970 Visit/Account:[id number] Date of Sevice: 07/22/2017 Abdominal series with single view of the chest: 07/22/2017 9:13 PM HISTORY: Abdominal pain. COMPARISON:none. FINDINGS: There is dilated loop of small bowel in the left mid abdomen with positive small bowel gas. Small amount stool seen throughout colon. Abdominal soft tissues are grossly normal without suspicious lucencies or abnormal calcifications. No acute bony abnormality. The left lower lobe does show patchy hazy opacity in the retrocardiac area. The remaining lung michele are clear. No effusion or pneumothorax or discrete nodule. Old right rib fractures. No acute bony abnormality. IMPRESSION: 1. Abdominal findings suggestive early small bowel obstruction. Follow-up x-ray can reevaluate the bowel gas pattern. 2. Hazy opacities seen in the left retrocardiac area. This could be due to accentuation from the low lung volumes versus early infiltrate. I called report to WALTER TAYLOR at 07/22/2017 10:22 PM. Report Dictated By: Jay Jay Root at 07/22/2017 10:15 PM Report E-Signed By: Jay Jay Root at 07/22/2017 10:23 PM WSN:[id number] PATIENT NAME: Quita Grace : 1970 MR: [id number] V: [id number] EXAM DATE: ORDERING PHYSICIAN: WALTER TAYLOR TECHNOLOGIST: [place] [facility] [place] Patient: Quita Grace : 1970 Visit/Account:[id number] Date of Sevice: 07/22/2017 COMPUTED TOMOGRAPHY ABDOMEN AND PELVIS WITHOUT INTRAVENOUS CONTRAST DATE OF EXAM: 07/22/2017 10:26 PM INDICATION: Abdominal pain. COMPARISON: Same-day radiographs, CT abdomen and pelvis 03/25/2017. TECHNIQUE: Noncontrast abdomen and pelvis CT performed. Sagittal and coronal reconstructions were performed. One of the following dose optimization techniques was utilized in the performance of this exam: Automated exposure control; adjustment of the mA and/or kV according to the patient's size; or use of an iterative reconstruction technique. Specific details can be referenced in the facility's radiology CT exam operational policy. FINDINGS: Lung bases: Small volume left pleural effusion. Heart size is upper limit normal. Hypoattenuating blood pool. Liver: The liver is cirrhotic in appearance, and has likely decreased in volume since 03/25/2017 which could indicate worsened fibrosis. Venous collaterals noted. Gallbladder and bile ducts: Probable gallstones. No definite evidence of cholecystitis. Spleen: Mild splenomegaly. Pancreas: Unremarkable. Adrenals: Normal. Kidneys, ureters and bladder: Kidneys and ureters are grossly normal. Urinary bladder is decompressed. Retroperitoneum and aorta: Normal caliber aorta with mild atherosclerotic ossification. No adenopathy. GI tract, mesentery and peritoneum: There is fatty infiltration wall of the cecum and ascending colon. No evidence of obstruction. No pneumatosis or pneumoperitoneum. Moderate to large volume ascites, significantly increased compared to the prior examination. Uterus and adnexa: Probable hysterectomy. Bones and soft tissues: No suspicious lesion. Diffuse body wall edema remote right rib fractures. Incompletely imaged bilateral breast implants. IMPRESSION: 1. Cirrhotic appearing liver that has likely decreased in volume since 2016 which could indicate worsened fibrosis. 2. Moderate to large volume of ascites, significantly increased compared to prior 03/25/2017. 3. Small left pleural effusion. 4. Hypoattenuating blood pool suggestive of anemia. Report Dictated By: Juan Antonio Sabillon MD at 07/22/2017 10:59 PM Report E-Signed By: Juan Antonio Sabillon MD at 07/22/2017 11:10 PM WSN:[id number] EKG PATIENT NAME: QUITA GRACE : [id number] MR: [id number] V: [id number] EXAM DATE: ORDERING PHYSICIAN: WALTER TAYLOR TECHNOLOGIST: Test Reason : Blood Pressure : / mmHG Vent. Rate : 082 BPM Atrial Rate : 078 BPM P-R Int : 000 ms QRS Dur : 050 ms QT Int : 456 ms P-R-T Axes : 000 041 187 degrees QTc Int : 532 ms Diffuse artifact makes interpretation difficult Appears to be sinus rhythm with frequent premature atrial complexes Recommend repeat EKG Abnormal ECG Confirmed by MOOSE LAZAR ([id number]) on 07/23/2017 6:04:45 AM Referred By: Confirmed By:MOOSE LAZAR Condition: Improved Discharge: Home, Self Care Follow-Up Labs: Other (CBC, CMP in approximately 7-[address] Venegas) Time Spent: > 30 min Discharge Instructions Home Meds Active Scripts Furosemide (FUROSEMIDE) 20 Mg Tablet, 20 MG PO QDAY, #30 TAB 1 Refill Prov:MOOSE LAZAR MD 07/25/17 Oxycodone Hcl (OXYCODONE HCL) 5 Mg Tablet, 5-10 MG PO Q6H Y for PAIN, #14 TAB 0 Refills Prov:MOOSE LAZAR MD 07/25/17 Lactulose (LACTULOSE) 10 Gm/15 Ml Solution, 10 GM PO QDAY, #473 ML Hold if more than 3 diarrheal stools a day. Prov:MOOSE LAZAR MD 07/25/17 Spironolactone (SPIRONOLACTONE) 25 Mg Tablet, 25 MG PO QDAY, #30 TAB Prov:MARIAM SEAY DO 06/22/17 Reported Medications Folic Acid (FOLIC ACID) 0.4 Mg Tablet, 0.4 MG PO DAILY 07/23/17 Cyanocobalamin (Vitamin B-12) (B-12) 1,500 Mcg Tab.rapdis, 1500 MCG PO DAILY 07/23/17 Thiamine Hcl (THIAMINE HCL) 250 Mg Tablet, 250 MG PO DAILY 07/23/17 Fluoxetine Hcl (FLUOXETINE HCL) 20 Mg Capsule, 1 CAP PO QDAY, CAPSULE 06/21/17 Potassium Gluconate (POTASSIUM) 99 Mg Tablet, 99 MG PO DAILY 06/21/17 Discontinued Reported Medications Cyanocobalamin (Vitamin B-12) (Vitamin B12) 2,500 Mcg Tablet, 1 TAB PO QDAY 06/21/17 Discontinued Scripts Thiamine Hcl (VITAMIN B-1) 100 Mg Tablet, 100 MG PO QDAY for 30 Days, #30 TAB Prov:RAQUEL PIZARRO MD 04/07/17 Follow up Referrals: Family Practice with Amirah Venegas Do General Surgery with Eric Moy Md Diet: Regular Activity: As Tolerated, No Exertion Special Instructions: Follow up with Dr. Venegas in 7-10 days. Follow up with Dr. Moy in approximately 10 days for possible repeat paracentesis. Copies to: AMIRAH VENEGAS DO; ERIC MOY MD Venous Thromboembolism Antithrombotics Is Pt On Any Antithrombotics?: No Problem Qualifiers (1) Anemia: Anemia type: unspecified type Qualified Codes: D64.9 - Anemia, unspecified MOOSE LAZAR MD Jul 25, 2017 11:10
[2017-07-25] MEDS ORDERED: SPIR25TA78 PO (11:11)
[2017-07-25 11:14] VITALS: BP 103/59
[2017-07-26] MEDS ORDERED: INFLUENZA VIRUS VAC 0.5 ML SYR IM ONLY ONE (09:00)
== END 2017-07-25 12:40 | disposition home or self-care (01) | DRG 434 ==
LOC: ER 20:56 → MED 22:04
PROVIDERS: ADMIT Internal Medicine; ATTEND Internal Medicine
PROC: 30233N1 Transfusion of Nonautologous Red Blood Cells into Peripheral Vein, Percutaneous Approach (ICD-10-PCS; 2017-07-22)
PROC: 0W9G3ZZ Drainage of Peritoneal Cavity, Percutaneous Approach (ICD-10-PCS; principal; 2017-07-23)
DX: K70.31 Alcoholic cirrhosis of liver with ascites (principal); F10.20 Alcohol dependence, uncomplicated; D64.9 Anemia, unspecified; E87.6 Hypokalemia; E83.42 Hypomagnesemia; T50.2X5A Adverse effect of carbonic-anhydrase inhibitors, benzothiadiazides and other diuretics, initial encounter; Y90.0 Blood alcohol level of less than 20 mg/100 ml; Z90.710 Acquired absence of both cervix and uterus
CPT/HCPCS: 36415; 74022; 74176; 81479; 82040; 82140; 82150; 82247; 82274; 82310; 82374; 82435; 82565; 82947; 83605; 83690; 83735; 84075; 84132; 84155; 84295; 84450; 84460; 84484; 84520; 85025; 85610; 86850; 86870; 86880; 86900; 86901; 86920; 86922; 87040; 87071; 87073; 87205; 89050; 93005; 96361; 96365; 96375; 99285; A7048; C9113; J0696; J2270; J2405; J2543; J3475; J3480; J7030; J7050; P9016

== ENCOUNTER → 2017-08-02 | Outpatient (CLI) | payer BC ==
[2017-07-23 11:48] VITALS: BMI 22.0
[~2017-08-02] MED LIST changes: +FOLI0.4T56 PO; +FURO-45 PO; +OXYC5TAB38 PO; +THIA250T9 PO; +[UNRECOGNIZED DRUG - CODE] PO
--- NOTE | 2017-08-02 14:18 | RADIOLOGY IMAGING REPORT ---
FACILITY: [facility] [place] PATIENT NAME: Awa Grace : 1970 MR: [id number] V: [id number] EXAM DATE: ORDERING PHYSICIAN: AMIRAH RUTHERFORD TECHNOLOGIST: Location: [facility] Patient: Awa Grace : 1970 Visit/Account:[id number] Date of Sevice: 08/02/2017 KUB SINGLE VIEW ABDOMEN History: Low potassium, anemia. End-stage liver disease. COMPARISON: 07/22/2017 Findings: Single view demonstrates nonobstructed bowel gas pattern. No gross pneumoperitoneum. Phle bolith overlies the right lower pelvis. No acute appearing bony abnormality. IMPRESSION: No evidence of acute abdominal pathology. Report Dictated By: Darwin Evans MD at 08/02/2017 2:12 PM Report E-Signed By: Darwin Evans MD at 08/02/2017 2:15 PM WSN:[id number]
== END ==
LOC: RAD 11:21
PROVIDERS: ATTEND Family Medicine
DX: D64.9 Anemia, unspecified (principal); N18.6 End stage renal disease; E78.6 Lipoprotein deficiency; K56.609 Unspecified intestinal obstruction, unspecified as to partial versus complete obstruction
CPT/HCPCS: 36415; 74018; 82310; 82374; 82435; 82565; 82947; 83735; 84132; 84295; 84520; 85027

== ENCOUNTER 2017-09-06 16:29 | Inpatient (IN) | payer BC ==
[2017-07-23 11:48] VITALS: Ht 165.1 cm; Wt 63.1 kg
[~2017-09-06] VITALS: Ht 165.1 cm; Wt 63.1 kg
[2017-09-06] MEDS ORDERED: THIAMINE HCL(*) 200 MG/2 ML IN 100 MG, FOLIC ACID(*) 50 MG/10 ML INJ 1 MG, MULTIVITAMIN... IV ONE (16:54)
[2017-09-06] MEDS ORDERED: NS(*) 0.9% 1000 ML BAG 1,000 ML IV ONE (16:54)
--- NOTE | 2017-09-06 16:57 | ER Report ---
History and Physical Time Seen By MD: 17:11 Hx. of Stated Complaint: [facility] pt not taking care of self, lac on back of head, drinking alcohol, not eating, uncooperative, "i just want to go away" HPI/ROS 47-year-old female is brought in by ambulance she is under medical [facility]itent[facility] she is a chronic alcoholic has been drinking for 4-5 days as her is an out-of-town down outside a vehicle on Tuesday for an unknown amount of time in the her parents to take her back in the house that she was not responding like she normally is and states that that has continued up until today and they called the police to bring her here Allergies: Coded Allergies: No Known Drug Allergies (Verified , 06/21/17) Home Meds Active Scripts Spironolactone (SPIRONOLACTONE) 25 Mg Tablet, 25 MG PO QDAY, #30 TAB 1 Refill Prov:MOOSE LAZAR MD 07/25/17 Furosemide (FUROSEMIDE) 20 Mg Tablet, 20 MG PO QDAY, #30 TAB 1 Refill Prov:MOOSE LAZAR MD 07/25/17 Lactulose (LACTULOSE) 10 Gm/15 Ml Solution, 10 GM PO QDAY, #473 ML Hold if more than 3 diarrheal stools a day. Prov:MOOSE LAZAR MD 07/25/17 Reported Medications Folic Acid (FOLIC ACID) 0.4 Mg Tablet, 0.4 MG PO DAILY 07/23/17 Cyanocobalamin (Vitamin B-12) (B-12) 1,500 Mcg Tab.rapdis, 1500 MCG PO DAILY 07/23/17 Fluoxetine Hcl (FLUOXETINE HCL) 20 Mg Capsule, 1 CAP PO QDAY, CAPSULE 06/21/17 Potassium Gluconate (POTASSIUM) 99 Mg Tablet, 99 MG PO DAILY 06/21/17 Discontinued Reported Medications Thiamine Hcl (THIAMINE HCL) 250 Mg Tablet, 250 MG PO DAILY 07/23/17 Discontinued Scripts Oxycodone Hcl (OXYCODONE HCL) 5 Mg Tablet, 5-10 MG PO Q6H Y for PAIN, #14 TAB 0 Refills Prov:MOOSE LAZAR MD 07/25/17 Past Medical/Surgical History History hepatitis, alcoholic hepatitis, cirrhosis, anemia, ascites, alcohol abuse Reviewed Nurses Notes: Yes Old Medical Records Reviewed: Yes Hx Smoking: No Smoking Status: Never Smoker Hx Substance Use Disorder: No Hx Alcohol Use: Yes Constitutional Vital Sign - Last 24 Hours 09/06/17 09/06/17 09/06/17 09/06/17 16:29 16:30 16:39 16:49 Temp 98.9 Pulse 91 92 89 90 Resp 14 B/P (MAP) 124/82 Pulse Ox 90 90 91 95 O2 Delivery Room Air 09/06/17 09/06/17 09/06/17 09/06/17 16:59 17:00 17:09 17:19 Pulse 90 93 87 B/P (MAP) 125/81 (96) Pulse Ox 95 93 95 09/06/17 09/06/17 09/06/17 09/06/17 17:29 17:30 17:39 17:49 Pulse ? B/P (MAP) ???/??? (1665) 09/06/17 09/06/17 09/06/17 09/06/17 17:59 18:00 18:09 18:12 Pulse 84 89 B/P (MAP) 124/72 (89) 130/81 (97) Pulse Ox 97 98 09/06/17 09/06/17 09/06/17 09/06/17 18:19 18:20 18:25 18:40 Pulse 91 89 88 Resp 12 19 18 B/P (MAP) 125/76 (92) 120/80 (93) Pulse Ox 95 97 96 Physical Exam Patient awakes to verbal stimuli has slurred speech alcohol on breath HEENT patient has an abrasion to her occiput on her head contusion to occiput neck is supple no midline tenderness no step-offs heart rate is regular no murmurs rubs and gallops lungs are decreased bilateral bases abdomen is rotund liver edge is down 7 bowel sounds 4 quadrants moves all extremities Medical Decision Making Data Points Result Diagram: 09/06/17 1700 09/06/17 1700 Laboratory Hematology Test 09/06/17 17:00 09/06/17 17:19 09/06/17 18:12 Red Blood Count 2.46 M/uL (4.17-5.56) Mean Corpuscular Volume 97.6 fL (80.0-96.0) Mean Corpuscular Hemoglobin 35.5 pg (26.0-33.0) Mean Corpuscular Hemoglobin Concent 36.3 g/dL (32.0-36.0) Red Cell Distribution Width 16.4 % (11.5-14.5) Mean Platelet Volume 5.9 fL (7.2-11.1) Neutrophils (%) (Auto) 70.0 % (39.4-72.5) Lymphocytes (%) (Auto) 21.1 % (17.6-49.6) Monocytes (%) (Auto) 5.6 % (4.1-12.4) Eosinophils (%) (Auto) 2.4 % (0.4-6.7) Basophils (%) (Auto) 0.9 % (0.3-1.4) Nucleated RBC Relative Count (auto) 0.1 /100WBC Neutrophils # (Auto) 7.1 K/uL (2.0-7.4) Lymphocytes # (Auto) 2.1 K/uL (1.3-3.6) Monocytes # (Auto) 0.6 K/uL (0.3-1.0) Eosinophils # (Auto) 0.2 K/uL (0.0-0.5) Basophils # (Auto) 0.1 K/uL (0.0-0.1) Nucleated RBC Absolute Count (auto) 0.01 K/uL Peripheral Blood Smear Yes Y/N Venous Blood pH 7.43 (7.31-7.41) Sodium Level 137 mmol/L (137-145) Potassium Level 3.7 mmol/L (3.5-5.0) Chloride Level 102 mmol/L (98-107) Carbon Dioxide Level 23 mmol/L (22-31) Blood Urea Nitrogen 5 mg/dl (7-18) Creatinine 0.50 mg/dl (0.52-1.04) Glomerular Filtration Rate Calc > 60.0 Random Glucose 83 mg/dl (75-110) Lactate 6.1 mmol/L (0.7-2.1) Calcium Level 7.3 mg/dl (8.4-10.2) Magnesium Level 1.5 mg/dl (1.7-2.2) Total Bilirubin 6.5 mg/dl (0.2-1.3) Aspartate Amino Transf (AST/SGOT) 82 U/L (0-35) Alanine Aminotransferase (ALT/SGPT) 34 U/L (0-56) Alkaline Phosphatase 153 U/L (0-126) Total Creatine Kinase 74 U/L (30-135) Troponin I 0.020 ng/ml Total Protein 7.0 gm/dl (6.3-8.2) Albumin 2.3 g/dl (3.5-5.0) Salicylates Level < 10 mg/L Salicylate Last Dose Date unk Acetaminophen Level < 10 ug/ml Serum Alcohol 351 mg/dl Whole Blood Glucose 95 mg/DL (75-110) Urine Color Mer Urine Clarity Slightly-cloudy Urine pH 5.0 pH (4.8-9.5) Urine Specific [place] 1.016 Urine Protein Negative mg/dL (NEGATIVE) Urine Glucose (UA) Negative mg/dL (NEGATIVE) Urine Ketones Negative mg/dL (NEGATIVE) Urine Blood Small (NEGATIVE) Urine Nitrite Negative (NEGATIVE) Urine Bilirubin Negative (NEGATIVE) Urine Urobilinogen 4.0 mg/dL (0.2-1.9) Urine Leukocyte Esterase Negative (NEGATIVE) Urine RBC 2 /HPF (0-2/HPF) Urine WBC 2 /HPF (0-5/HPF) Urine Squamous Epithelial Cells Many /LPF (</=FEW) Urine Bacteria Few /HPF (NONE-FEW) Urine Hyaline Casts Few /LPF (NONE-FEW) Urine Mucus Few /HPF (NONE-FEW) Urine HCG, Qualitative Negative (NEGATIVE) Urine Opiates Screen Negative Urine Barbiturates Screen Negative Ur Tricyclic Antidepressants Screen Positive Urine Phencyclidine Screen Negative Urine Amphetamines Screen Negative Urine Benzodiazepines Screen Negative Urine Cocaine Screen Negative Urine Cannabinoids Screen Negative Chemistry Test 09/06/17 17:00 09/06/17 17:19 09/06/17 18:12 White Blood Count 10.1 k/uL (4.5-11.0) Red Blood Count 2.46 M/uL (4.17-5.56) Hemoglobin 8.7 g/dL (12.0-16.0) Hematocrit 24.0 % (34.0-47.0) Mean Corpuscular Volume 97.6 fL (80.0-96.0) Mean Corpuscular Hemoglobin 35.5 pg (26.0-33.0) Mean Corpuscular Hemoglobin Concent 36.3 g/dL (32.0-36.0) Red Cell Distribution Width 16.4 % (11.5-14.5) Platelet Count 173 K/uL (150-450) Mean Platelet Volume 5.9 fL (7.2-11.1) Neutrophils (%) (Auto) 70.0 % (39.4-72.5) Lymphocytes (%) (Auto) 21.1 % (17.6-49.6) Monocytes (%) (Auto) 5.6 % (4.1-12.4) Eosinophils (%) (Auto) 2.4 % (0.4-6.7) Basophils (%) (Auto) 0.9 % (0.3-1.4) Nucleated RBC Relative Count (auto) 0.1 /100WBC Neutrophils # (Auto) 7.1 K/uL (2.0-7.4) Lymphocytes # (Auto) 2.1 K/uL (1.3-3.6) Monocytes # (Auto) 0.6 K/uL (0.3-1.0) Eosinophils # (Auto) 0.2 K/uL (0.0-0.5) Basophils # (Auto) 0.1 K/uL (0.0-0.1) Nucleated RBC Absolute Count (auto) 0.01 K/uL Peripheral Blood Smear Yes Y/N Venous Blood pH 7.43 (7.31-7.41) Glomerular Filtration Rate Calc > 60.0 Lactate 6.1 mmol/L (0.7-2.1) Calcium Level 7.3 mg/dl (8.4-10.2) Magnesium Level 1.5 mg/dl (1.7-2.2) Total Bilirubin 6.5 mg/dl (0.2-1.3) Aspartate Amino Transf (AST/SGOT) 82 U/L (0-35) Alanine Aminotransferase (ALT/SGPT) 34 U/L (0-56) Alkaline Phosphatase 153 U/L (0-126) Total Creatine Kinase 74 U/L (30-135) Troponin I 0.020 ng/ml Total Protein 7.0 gm/dl (6.3-8.2) Albumin 2.3 g/dl (3.5-5.0) Salicylates Level < 10 mg/L Salicylate Last Dose Date unk Acetaminophen Level < 10 ug/ml Serum Alcohol 351 mg/dl Whole Blood Glucose 95 mg/DL (75-110) Urine Color Mer Urine Clarity Slightly-cloudy Urine pH 5.0 pH (4.8-9.5) Urine Specific [place] 1.016 Urine Protein Negative mg/dL (NEGATIVE) Urine Glucose (UA) Negative mg/dL (NEGATIVE) Urine Ketones Negative mg/dL (NEGATIVE) Urine Blood Small (NEGATIVE) Urine Nitrite Negative (NEGATIVE) Urine Bilirubin Negative (NEGATIVE) Urine Urobilinogen 4.0 mg/dL (0.2-1.9) Urine Leukocyte Esterase Negative (NEGATIVE) Urine RBC 2 /HPF (0-2/HPF) Urine WBC 2 /HPF (0-5/HPF) Urine Squamous Epithelial Cells Many /LPF (</=FEW) Urine Bacteria Few /HPF (NONE-FEW) Urine Hyaline Casts Few /LPF (NONE-FEW) Urine Mucus Few /HPF (NONE-FEW) Urine HCG, Qualitative Negative (NEGATIVE) Urine Opiates Screen Negative Urine Barbiturates Screen Negative Ur Tricyclic Antidepressants Screen Positive Urine Phencyclidine Screen Negative Urine Amphetamines Screen Negative Urine Benzodiazepines Screen Negative Urine Cocaine Screen Negative Urine Cannabinoids Screen Negative Toxicology Test 09/06/17 17:00 09/06/17 18:12 Salicylates Level < 10 mg/L Salicylate Last Dose Date unk Acetaminophen Level < 10 ug/ml Serum Alcohol 351 mg/dl Urine Opiates Screen Negative Urine Barbiturates Screen Negative Ur Tricyclic Antidepressants Screen Positive Urine Phencyclidine Screen Negative Urine Amphetamines Screen Negative Urine Benzodiazepines Screen Negative Urine Cocaine Screen Negative Urine Cannabinoids Screen Negative Urinalysis Test 09/06/17 18:12 Urine Color Mer Urine Clarity Slightly-cloudy Urine pH 5.0 pH (4.8-9.5) Urine Specific [place] 1.016 Urine Protein Negative mg/dL (NEGATIVE) Urine Glucose (UA) Negative mg/dL (NEGATIVE) Urine Ketones Negative mg/dL (NEGATIVE) Urine Blood Small (NEGATIVE) Urine Nitrite Negative (NEGATIVE) Urine Bilirubin Negative (NEGATIVE) Urine Urobilinogen 4.0 mg/dL (0.2-1.9) Urine Leukocyte Esterase Negative (NEGATIVE) Urine RBC 2 /HPF (0-2/HPF) Urine WBC 2 /HPF (0-5/HPF) Urine Squamous Epithelial Cells Many /LPF (</=FEW) Urine Bacteria Few /HPF (NONE-FEW) Urine Hyaline Casts Few /LPF (NONE-FEW) Urine Mucus Few /HPF (NONE-FEW) Urine HCG, Qualitative Negative (NEGATIVE) EKG/Imaging EKG Interpretation EKG at 1701 normal sinus ventricular rate 90 QTc is 477 Monitor Interpretation: Normal Sinus Rhythm ED Course/Re-evaluation Clinical Indication for ER IV: Hydration ED Course Discussed patient with Dr. David Grace asked him to admit her medically for dehydration increasing cirrhosis Re-evaluation Given tetanus and emergency room feels better after treatment will be admitted for hydration overnight she was seen by psych triage down here there well consult depending on medical condition [facility] tomorrow Decision to Disposition Date: Sep 06, 2017 Decision to Disposition Time: 19:34 Depart Departure Latest Vital Signs Vital Signs Date Time Temp Pulse Resp B/P (MAP) Pulse Ox O2 Delivery O2 Flow Rate FiO2 09/06/17 18:40 88 18 120/80 (93) 96 09/06/17 16:30 98.9 Room Air Impression: Primary Impression: Alcoholic hepatitis Additional Impressions: Anemia Cirrhosis Head injury Dehydration Condition: Improved Disposition: Admitted from ER Referrals: AMIRAH RUTHERFORD DO (PCP) Problem Qualifiers KENDALL DUPONT Sep 06, 2017 16:57
[2017-09-06 17:11] LABS: PLATELET COUNT, AUTOMATED 173 K/uL (150-450)
--- NOTE | 2017-09-06 17:11 | EKG ---
[place] [facility] [place] QUITA MCLAUGHLIN : [id number] MR: [id number] V: [id number] EXAM DATE: ORDERING PHYSICIAN: KENDALL DUPONT TECHNOLOGIST: HUA Borja Reason : ALC Blood Pressure : / mmHG Vent. Rate : 090 BPM Atrial Rate : 090 BPM P-R Int : 160 ms QRS Dur : 068 ms QT Int : 390 ms P-R-T Axes : 046 008 086 degrees QTc Int : 477 ms Normal sinus rhythm Low voltage QRS Cannot rule out Anteroseptal infarct , age undetermined Abnormal ECG When compared with ECG of 23-JUL-2017 06:08, Minimal criteria for Anteroseptal infarct are now present Confirmed by DOMENICO PATE ([id number]) on 09/06/2017 7:09:37 PM Referred By: FRANCES Confirmed By:DOMENICO PATE
--- NOTE | 2017-09-06 18:34 | RADIOLOGY IMAGING REPORT ---
FACILITY: [facility] - [place] PATIENT NAME: Awa Grace : 1970 MR: [id number] V: [id number] EXAM DATE: ORDERING PHYSICIAN: KENDALL DUPONT TECHNOLOGIST: Location: [facility] Patient: Awa Grace : 1970 Visit/Account:[id number] Date of Sevice: 09/06/2017 EXAMINATION: Head CT without intravenous contrast HISTORY: Fall. Altered level of consciousness. COMPARISON: 07/05/2009. TECHNIQUE: Contiguous axial images were obtained from the skull base to the vertex without intraven ous contrast. Sagittal and coronal reformatted images are also submitted. One of the following dose optimization techniques was utilized in the performance of this exam: Autom ated exposure control; adjustment of the mA and/or kV according to the patient's size; or use of an i terative reconstruction technique. Specific details can be referenced in the facility's radiology C T exam operational policy. FINDINGS: Brain and intracranial structures: Ventricles, sulci, and cisterns are normal in size. Nair-white ma tter differentiation is maintained. No midline shift, acute hemorrhage, acute infarct, or mass. Vessels: Slight calcification of the carotid siphons. Calvarium / scalp: Right parietal-occipital scalp hematoma with surrounding swelling. No acute fract ure. Skull base / visualized face: Negative. Visualized sinuses / orbits: Mild mucosal thickening in the ethmoid air cells and sphenoid sinuses. IMPRESSION: Parietal-occipital scalp hematoma. No acute intracranial abnormality. Report Dictated By: Devante Hays MD at 09/06/2017 6:17 PM Report E-Signed By: Devante Hays MD at 09/06/2017 6:30 PM WSN:[id number]
--- NOTE | 2017-09-06 18:37 | RADIOLOGY IMAGING REPORT ---
FACILITY: [facility] - [place] PATIENT NAME: Awa Grace : 1970 MR: [id number] V: [id number] EXAM DATE: ORDERING PHYSICIAN: KENDALL DUPONT TECHNOLOGIST: Location: [facility] [place] Patient: Awa Grace : 1970 Visit/Account:[id number] Date of Sevice: 09/06/2017 CHEST SINGLE AP Indication: Fall. Altered loss of consciousness.. Comparison: 03/23/2017. Findings: Cardiomediastinal silhouette and pulmonary vessels within normal limits. There is no focal infiltrate or lobar consolidation. No pneumothorax or pleural effusion. No nodule. Upper abdomen is unremarkable. No acute bony abnormality. IMPRESSION: 1. No acute cardiopulmonary process. No discrete indication of thoracic trauma. Report Dictated By: Jay Jay Root at 09/06/2017 6:31 PM Report E-Signed By: Jay Jay Root at 09/06/2017 6:32 PM WSN:[id number]
--- NOTE | 2017-09-06 18:40 | RADIOLOGY IMAGING REPORT ---
[facility] PATIENT NAME: Awa Grace : 1970 MR: [id number] V: [id number] EXAM DATE: ORDERING PHYSICIAN: KENDALL DUPONT TECHNOLOGIST: Location: [facility] Patient: Awa Grace : 1970 Visit/Account:[id number] Date of Sevice: 09/06/2017 EXAMINATION: CT Cervical spine without intravenous contrast HISTORY: Fall. Altered level of consciousness. COMPARISON: None. TECHNIQUE: Axial images were obtained from the skull base through the upper thoracic spine without I V contrast administration. Coronal and sagittal reformatted images were obtained from the axial [facility] e data. One of the following dose optimization techniques was utilized in the performance of this exam: Autom ated exposure control; adjustment of the mA and/or kV according to the patient's size; or use of an i terative reconstruction technique. Specific details can be referenced in the facility's radiology C T exam operational policy. FINDINGS: Alignment: Normal. Cranio-cervical junction: Negative. Vertebral bodies: Vertebral body heights are maintained. No acute fracture. Posterior elements: No acute fracture. Hardware: None. Disc Spaces: Mild endplate osteophytes at C5-6. Soft tissues: Parietal-occipital scalp hematoma with surrounding soft tissue swelling. There is also soft tissue swelling in the posterior neck, more prominent on the right. Visualized upper chest: Negative. IMPRESSION: No acute fracture of the cervical spine. Parietal-occipital scalp hematoma with surrounding soft tissue swelling. There is also soft tissue sw elling in the posterior neck, more prominent on the right. Report Dictated By: Devante Hays MD at 09/06/2017 6:30 PM Report E-Signed By: Devante Hays MD at 09/06/2017 6:36 PM WSN:[id number]
--- NOTE | 2017-09-06 18:56 | RADIOLOGY IMAGING REPORT ---
FACILITY: [facility] - [place] PATIENT NAME: Awa Grace : 1970 MR: [id number] V: [id number] EXAM DATE: ORDERING PHYSICIAN: KENDALL DUPONT TECHNOLOGIST: Location: [facility] Patient: Awa Grace : 1970 Visit/Account:[id number] Date of Sevice: 09/06/2017 EXAMINATION: CT abdomen without IV contrast CT pelvis without IV contrast HISTORY: Cirrhosis. Elevated lactate. COMPARISON: 07/22/2017. TECHNIQUE: Axial images were taken through the abdomen and pelvis without intravenous contrast. Sag ittal and coronal reformatted images are also submitted. One of the following dose optimization techniques was utilized in the performance of this exam: Autom ated exposure control; adjustment of the mA and/or kV according to the patient's size; or use of an i terative reconstruction technique. Specific details can be referenced in the facility's radiology C T exam operational policy. FINDINGS: Please note that without intravenous contrast, sensitivity to detection of parenchymal disease is willson ited. Liver/biliary: Cirrhotic configuration of the liver. Gallstones within the gallbladder. Pancreas: Negative. Spleen: Spleen is mildly enlarged measuring 13.8 cm in length. Adrenal glands: Negative. Kidneys: Negative. Pelvic structures: Probable hysterectomy. Bowel: Fatty infiltration of the cecum and ascending colon. Appendix is not delineated. The bowel is nondilated. Peritoneum/retroperitoneum/mesenteries: Large volume of ascites, mildly increased since the previous examination. Vessels: Mild calcified plaque of the aorta Musculoskeletal/body wall: Bilateral breast implants. Circumferential body wall edema along the abdom en and pelvis and in the upper thighs. Multiple chronic right-sided rib fracture deformities. Healing fracture of the lateral right 10th rib. Lymph node assessment: Negative. Lower chest: Small left pleural effusion, decreased since the previous examination. Mild subsegmental atelectasis at the lung bases. IMPRESSION: Since the previous examination on 07/22/2017, ascites has mildly increased. There is a large volume of ascites on the current examination. Liver cirrhosis. Mild splenomegaly. Cholelithiasis. Circumferential body wall edema, similar to the previous examination. Report Dictated By: Devante Hays MD at 09/06/2017 6:37 PM Report E-Signed By: Devante Hays MD at 09/06/2017 6:52 PM WSN:[id number]
[2017-09-06] MEDS ORDERED: DIPHTH/TETANUS/ACEL. PERTUSSIS IM ONLY ONE (19:20)
[2017-09-06] MEDS ORDERED: INFLUENZA VIRUS VAC 0.5 ML SYR IM ONLY ONE (20:15)
[2017-09-06] MEDS ORDERED: BACITRACIN/POLYMY B OINT 3.5GM OD ONE (20:25)
--- NOTE | 2017-09-06 20:47 | History & Physical ---
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 Her had to leave her in care of her parents 2 days ago because he had to go out of town. Her parents are not staying with her in the house but come to tend to the animals and check on her. They found her kneeling by her truck 2 days ago. She was confused and obviously drunk. She was unable to stand, so they put her in a rolling chair and brought her in the house. They stayed with her for awhile and then left when they thought she was safe. Yesterday, she smelled like wine. She wouldn't talk to her parents because she was mad at them. This morning, her parents came by and she still wouldn't talk to them. They were concerned that she was intoxicated. When they came back at about 1pm today, they noticed that she had blood in her hair in the back and she was complaining of head pain. They called the police to bring her in. The patient, apparently , said that she didn't want to live to the police and they emergently detained her. The patient reports that her last drink of alcohol was 2 days ago. She thinks she fell yesterday and hurt her head, but doesn't remember what happened. She denies fevers, CP, SOB, vomiting. She always has loose stools. History Problems: (1) Cirrhosis Status: Chronic (2) Ascites due to alcoholic cirrhosis Status: Chronic (3) Anemia Status: Chronic Home Meds Active Scripts Spironolactone (SPIRONOLACTONE) 25 Mg Tablet, 25 MG PO QDAY, #30 TAB 1 Refill Prov:MOOSE LAZAR MD 07/25/17 Furosemide (FUROSEMIDE) 20 Mg Tablet, 20 MG PO QDAY, #30 TAB 1 Refill Prov:MOOSE LAZAR MD 07/25/17 Lactulose (LACTULOSE) 10 Gm/15 Ml Solution, 10 GM PO QDAY, #473 ML Hold if more than 3 diarrheal stools a day. Prov:MOOSE LAZAR MD 07/25/17 Reported Medications Folic Acid (FOLIC ACID) 0.4 Mg Tablet, 0.4 MG PO DAILY 07/23/17 Cyanocobalamin (Vitamin B-12) (B-12) 1,500 Mcg Tab.rapdis, 1500 MCG PO DAILY 07/23/17 Fluoxetine Hcl (FLUOXETINE HCL) 20 Mg Capsule, 1 CAP PO QDAY, CAPSULE 06/21/17 Potassium Gluconate (POTASSIUM) 99 Mg Tablet, 99 MG PO DAILY 06/21/17 Discontinued Reported Medications Thiamine Hcl (THIAMINE HCL) 250 Mg Tablet, 250 MG PO DAILY 07/23/17 Discontinued Scripts Oxycodone Hcl (OXYCODONE HCL) 5 Mg Tablet, 5-10 MG PO Q6H Y for PAIN, #14 TAB 0 Refills Prov:MOOSE LAZAR MD 07/25/17 Allergies: Coded Allergies: No Known Drug Allergies (Verified , 06/21/17) Patient History: Unobtainable due to patient's condition Hx Smoking: No Smoking Status: Never Smoker Caffeine Intake: Coffee Caffeine/Cups Per Day: 1 TO 3 CUPS PER DAY Hx Alcohol Use: Yes Alcohol Use: Currently Alcohol Used: Wine Hx Substance Use Disorder: No Review of Systems All Systems Reviewed/Normal: Yes, Except as Noted Exam Vital Signs Vital Signs Date Time Temp Pulse Resp B/P (MAP) Pulse Ox O2 Delivery O2 Flow Rate FiO2 09/06/17 18:40 88 18 120/80 (93) 96 09/06/17 16:30 98.9 Room Air General Appearance: Alert, Awake, No Acute Distress Neuro: Other (She recognizes me. She knows where she is. She doesn't know the events that brought her to the hospital.) ENT: Other (Dry MMM.) Cardiovascular: Regular Rate and Rhythm Respiratory: Clear to Auscultation GI: Other (Distended, caput medusa, diffuse tenderness with palpation.) Extremities: Edema (2+ pitting to knees. L>R, but she reports it has been that way for a couple of years) Integumentary: Other (Back of head has dried blood in her hair. There is a 1cm abrasion visible on the occiput, but no other lacerations noted) Medical Decision Making Data Points Result Diagram: 09/06/17 1700 09/06/17 1700 Item Value Date Time Lactate 6.1 mmol/L *H 09/06/17 1700 Whole Blood Glucose 95 mg/DL 09/06/17 1719 Total Creatine Kinase 74 U/L 09/06/17 1700 Troponin I 0.020 ng/ml 09/06/17 1700 Total Bilirubin 6.5 mg/dl H 09/06/17 1700 Aspartate Amino Transf (AST/SGOT) 82 U/L H 09/06/17 170 Alanine Aminotransferase (ALT/SGPT) 34 U/L 09/06/17 170 Alkaline Phosphatase 153 U/L H 09/06/17 170 Calcium Level 7.3 mg/dl L 09/06/17 170 Magnesium Level 1.5 mg/dl L 09/06/17 170 Neutrophils (%) (Auto) 70.0 % 09/06/17 170 Lymphocytes (%) (Auto) 21.1 % 09/06/17 170 Monocytes (%) (Auto) 5.6 % 09/06/17 170 Eosinophils (%) (Auto) 2.4 % 09/06/171699 Basophils (%) (Auto) 0.9 % 09/06/171699 Urine Blood Small 09/06/17 181 Urine Nitrite Negative 09/06/17 181 Urine Bilirubin Negative 09/06/17 1812 Urine Urobilinogen 4.0 mg/dL H 09/06/171811 Urine Leukocyte Esterase Negative 09/06/171811 Urine RBC 2 /HPF 09/06/172 Urine WBC 2 /HPF 09/06/17 181 Urine Squamous Epithelial Cells Many /LPF H 09/06/17 1812 Urine Bacteria Few /HPF 09/06/172 Urine Mucus Few /HPF 09/06/172 Urine Hyaline Casts Few /LPF 09/06/17 1812 Serum Alcohol 351 mg/dl *H 09/06/17 1700 Acetaminophen Level < 10 ug/ml 09/06/17 170 Salicylates Level < 10 mg/L 09/06/170 Ur Tricyclic Antidepressants Screen Positive 09/06/171811 Venous Blood pH 7.43 H 09/06/170 EKG / Imaging EKG Interpretation Vent. Rate : 090 BPM Atrial Rate : 090 BPM P-R Int : 160 ms QRS Dur : 068 ms QT Int : 390 ms P-R-T Axes : 046 008 086 degrees QTc Int : 477 ms Normal sinus rhythm Low voltage QRS Cannot rule out Anteroseptal infarct , age undetermined Abnormal ECG When compared with ECG of 23-JUL-2017 06:08, Minimal criteria for Anteroseptal infarct are now present Confirmed by DOMENICO PATE ([id number]) on 09/06/2017 7:09:37 PM Imaging Abd/Pelvis CT - Since the previous examination on 07/22/2017, ascites has mildly increased. There is a large volume of ascites on the current examination. Liver cirrhosis. Mild splenomegaly. Cholelithiasis. Circumferential body wall edema, similar to the previous examination. Cervical Spine CT - No acute fracture of the cervical spine. Parietal-occipital scalp hematoma with surrounding soft tissue swelling. There is also soft tissue swelling in the posterior neck, more prominent on the right. CXR - 1. No acute cardiopulmonary process. No discrete indication of thoracic trauma. Head CT - Parietal-occipital scalp hematoma. No acute intracranial abnormality. Assessment and Plan Problems: (1) Suicidal ideation Status: Acute Assessment & Plan: She, apparently, said that she didn't want to live and she was emergently detained. She denies any desire to hurt herself to me. Will watch overnight with the scrutiny level determined by suicide screening (per Nursing Facilities Engineering Manager). (2) Confusion Status: Acute Assessment & Plan: Secondary to alcohol intoxification, but cannot rule concussion (has occiput scalp hematoma from fall) and/or hepatic encephalopathy. Will check an ammonia level and follow mental status. She was fairly lucid and near baseline during my exam. (3) Dehydration Status: Acute Assessment & Plan: Secondary to poor intake and alcohol intoxification. Lactate was elevated. Will recheck now that she has received about 1.5 liters of fluid. (4) Hypomagnesemia Status: Chronic Assessment & Plan: She is receiving Mg in the banana bag. Recheck in the morning. K wnl. (5) Ascites due to alcoholic cirrhosis Status: Chronic Assessment & Plan: It appears near her baseline. Her abdomen is tender on exam , but he CT didn't show any acute abnormalities. Her WBC is normal with a normal neutrophil percentage and she is afebrile. Will follow exam. Copies to: AMIRAH RUTHERFORD DO Venous Thromboembolism Antithrombotics Is Pt On Any Antithrombotics?: No Exam Sepsis Risk: No Definite Risk DOMENICO PATE MD Sep 06, 2017 20:47
[2017-09-06 21:42] VITALS: BP 118/73
[2017-09-07] MEDS: NS(*) 0.9% 1000 ML BAG 1,000 ML IV PRN ×2 (01:51→09:58)
[2017-09-07 04:25] VITALS: BP 125/79
[2017-09-07 05:48] LABS: PLATELET COUNT, AUTOMATED 162 K/uL (150-450)
[2017-09-07 07:56] VITALS: BP 110/61
[2017-09-07] MEDS: LORazepam 2 MG/ML VIAL IVP PRN ×5 (08:21→23:46)
[2017-09-07] MEDS: THIAMINE HCL 100 MG TAB PO SCH (08:24)
[2017-09-07] MEDS: FOLIC ACID 1 MG TAB PO SCH (08:24)
[2017-09-07] MEDS ORDERED: BACITRACIN OINT 0.9 GM PKT TP ONE (08:40)
--- NOTE | 2017-09-07 10:11 | RADIOLOGY IMAGING REPORT ---
FACILITY: [facility] - [place] PATIENT NAME: Awa Grace : 1970 MR: [id number] V: [id number] EXAM DATE: ORDERING PHYSICIAN: DOMENICO PATE TECHNOLOGIST: Location: [facility] Patient: Awa Grace : 1970 Visit/Account:[id number] Date of Sevice: 09/07/2017 Exam type: US GUIDANCE FOR THORA/PARA History: paracentesis Comparison: June 09, 2017 Findings: Multiple sonographic images labeled right upper quadrant, left upper quadrant, left lower quadrant an d right lower quadrant were submitted revealing a moderate to large amount of ascites. The patient's skin was marked for paracentesis to be performed by the hospitalist. IMPRESSION: 1. As above Report Dictated By: Olivia Multani MD at 09/07/2017 10:06 AM Report E-Signed By: Olivia Multani MD at 09/07/2017 10:08 AM WSN:[email or web address]
[2017-09-07] MEDS: LEVOFLOXACIN/D5W 750 MG/150 ML 150 ML IVPB SCH (10:48)
--- NOTE | 2017-09-07 10:54 | RADIOLOGY IMAGING REPORT ---
FAC[place] [facility] [place]IENT NAME: Awa Grace : 1970 MR: [id number] V: [id number] EXAM DATE: ORDERING PHYSICIAN: DOMENICO PATE TECHNOLOGIST: Location: [facility] - [place] Patient: Awa Grace : 1970 Visit/Account:[id number] Date of Sevice: 09/07/2017 Exam type: KUB SINGLE VIEW ABDOMEN History: post paracentesis Comparison: August 02, 2017 . Findings: There is a homogeneous groundglass appearance to the abdomen which can be seen with ascites. The bow el does not appear distended. Small amount of air along the left flank is presumably within the desc ending colon. No definite pneumoperitoneum. IMPRESSION: 1. Nonspecific bowel gas pattern Homogeneous ground glass appearance to the abdomen which can be seen with ascites Report Dictated By: Olivia Multani MD at 09/07/2017 10:47 AM Report E-Signed By: Olivia Multani MD at 09/07/2017 10:50 AM WSN:[email or web address]
--- NOTE | 2017-09-07 11:46 | RADIOLOGY IMAGING REPORT ---
[place] [facility] [place]IENT NAME: Awa Grace : 1970 MR: [id number] V: [id number] EXAM DATE: ORDERING PHYSICIAN: DOMENICO PATE TECHNOLOGIST: Location: [facility] - [place] Patient: Awa Grace : 1970 Visit/Account:[id number] Date of Sevice: 09/07/2017 CHEST SINGLE AP History: hypoxia, recent paracentesis FINDINGS: Comparison studies: Comparison radiographs 09/06/2017 and 03/31/2017 Tubes and Lines: None. Lungs and pleura: Mildly coarsened pulmonary interstitium appears chronic. Well aerated. No eviden ce of focal consolidation or pleural effusions. Mediastinum: normal. Cardiac silhouette: normal . Osseous structures: Old fractures of the right posterior sixth and seventh ribs can also be seen in March 2017 exam. Otherwise unremarkable IMPRESSION: Suspect mild chronic interstitial lung changes. Possible parenchymal scarring. No acute cardiopul monary pathology identified. Report Dictated By: Jayce Pelayo MD at 09/07/2017 11:35 AM Report E-Signed By: Jayce Pelayo MD at 09/07/2017 11:41 AM WSN:[email or web address]
[2017-09-07] MEDS ORDERED: LIDOCAINE 1% MDV 200 MG/20 ML INFIL ONE (11:55)
[2017-09-07 12:31] VITALS: BP 127/64
[2017-09-07] MEDS: cefTRIAXone 2 GM VIAL IVP SCH (13:21)
--- NOTE | 2017-09-07 13:22 | Procedure Note ---
Paracentesis Procedure Note Reason for Paracentesis: Other (Concern for SBP and therapeutic drainage of ascites) Consent Signed: Yes Paracentesis Location: RLQ U/S Guided Paracentesis: Yes Blood Loss: Minimal Complications: None noted right after the procedure. Anesthesia Used: 1% Lidocaine CC's of Anesthesia: 3 Amount of Fluid - cc's: 3750 Fluid Characteristics: Cloudy Lab Analysis Ordered: Yes Comment The US tech marked an area in the RLQ that had about a good size pocket of fluid. The area was prepped and draped in a sterile fashion. The trochar with catheter was used. The bedside US was used to watch the needle. Dark yellow fluid was aspirated. The trochar was advanced to about 5cm. It appeared that the trochar was possibly near bowel, so was backed up 2 cm. Then the trochar was advanced to the hub. Initially, there wasn't much fluid aspirated into the bottles. However, once the patient was rolled onto her right side, then fluid came out easily. The area was covered with bacitracin, gauze, and then foam tape. Follow up Xray of the abdomen and chest didn't show any evidence of free air. DOMENICO PATE MD Sep 07, 2017 13:22
--- NOTE | 2017-09-07 13:26 | BHS - Psychiatric Evaluation ---
ER - Title 25 MHE Evaluation Title 25 Evaluation Patient Detained By: Law Enforcement Referral Source: Professional: Law Enforcement Date Patient Detained: Sep 06, 2017 Time Patient Detained: 16:30 Date Correction Expires: Sep 09, 2017 Time Correction Expires: 16:30 Legal Status: Police Hold: No Legal Status: Residence: [facility] Resident, State Resident Assessment Data Provided By: Patient, Other Source ([facility] professionals) HPI/ROS: From ER medical professional Rosamaria Vargas, "Emergency retirement pt not taking care of self, lac on back of head, drinkingalcohol, not eating, uncooperative, "i just want to go away" HPI/ROS 47-year-old female is brought in by ambulance she is under medical retirement she is a chronic alcoholic has been drinking for 4-5 days as her is an out-of-town down outside a vehicle on Tuesday for an unknown amount of time in the her parents to take her back in the house that she was not responding like she normally is and states that that has continued up until today and they called the police to bring her here." Admit due to SI or Attempt: Yes Suicide Plan: No Plan Current Suicide Plan Denies current suicidality. Alcohol or Drugs Involved: Yes (High JAIMEE) Current Intoxication Info: Patient was reportedly drinking continuously for several days leading up to her hospitalization. Is Patient Info Reliable: Yes (Patient is a mostly reliable reportor, some difficulty gaining information from her perspective because she is very ill and unable to speak spontaneously. Because winded, confused and vomited profusely.) Is Collateral Info Reliable: Yes (3-81) Current Home Psych Meds: Unknown at this time. Mental Status Exam General Appearance: Good Eye Contact, Unkept Speech: Delayed Mood: Dysthmic/Depressed Affect: Anxious Thought Process: Other (Confusion in response to simple questions.) Thought Content: Suicidal Ideation (Expressed suicidal ideation at some point yesterday, leading to a retirement to keep her safe.) Cognition: Alert & Oriented-Person, Alert & Oriented-Place, No Alert & Oriented -Time, No Shcbi-Boaquafa-Obcnxvqwr Memory: No Immediate, No Recent, No Remote Insight Judgment: Poor Hallucinations: Denies Delusions: Denies Current Risk & History Current Dangerous Risk Assessm: Current Suicide Ideation (Denies), Ubable to Care for Self (Patient is ill, liquid diet, has difficulty bringing liquids to her mouth ) Past Dangerous Risk Assessm: Other (Reports no past ideation or self harm, but acknowledgement of severe, life threatening Alcohol Use Disorder ) Previous Suicide Attempt: No Previous Attempt Previous Psychiatric Illness: No Previous Psychiatric Treatment: No Risk Assessment & Disposition Evaluated Risk Assessment: Patient says she is fearful related to her health, and conveys some hopelessness when she says, "I have been sick for so long." No imminent harm, instead patient needing high level of medical attention for conditions related to Alcohol Use Disorder, especially, cirrhosis, ascites, dehydration, etc. Risk for medical problems is greater than risk for emotional problems at this time. As well, safe environment of the hospital where she is being treated for medical problems is most appropriate. Impression: Primary Impression: Alcoholic hepatitis Additional Impressions: Anemia Cirrhosis Head injury Dehydration Ascites due to alcoholic cirrhosis Meets Mental Illness Req.: No Meets Dangerousness Req.: No (Safe environment of Med/Surg) Emergency Correction to be: Lifted Decision Comment: Talked with patient as much as she could tolerate, she was vomiting during our time together. Asked patient about suicidal ideation and she said she is fearful about her health but not suicidal. Said she had never tried to kill herself before, and had never had a psychiatric hospitalization before. Will check her EMR to confirm this is true at [facility]. patient is very ill. let her know about [facility] services and the ease at which she could be voluntarily admitted to [facility] for intensive mental health treatment. She said she understood. Current nurse and last shift nurse did not see any witness any active suicidal ideation. Explained to her nurse, I would be lifting the Title 25 Correction, based on her level of medical instability, and conveyed our sincere willingness to offer her services for alcohol recovery. Some fear and hopelessness likely related to patients prognostic circumstances, and when patient is medically stable, she could certainly be treated at [facility]. Date of Decision: Sep 07, 2017 Time of Decision: 13:46 Patient is Medically Stable at: No Disposition: Discharge w/ Safety Plan (Patient can be referred at any time to [facility] for emotional or psychiatric distress.) Problem Qualifiers SYDNIE VEGA LPC Sep 07, 2017 13:26
--- NOTE | 2017-09-07 14:21 | Antimicrobial Stewardship ---
Antimicrobial Time Out Antimicrobial Stewardship MD Service: Hospitalist Indications: Other (Spontaneous Bacterial Perotonitis) Antimicrobial Used Levofloxacin + Ceftriaxone Start Date: Sep 07, 2017 Culture Results: Yes (09/07/17: Blood Cx x 2 pendind, Peritoneal fluid gram stain (no org seen, few WBCs) and cultures pending) Eligible for PO Conversion Eligable for PO Conversion: No Reviewed with Provider Reviewed w/ Provider on Rounds: Yes Date Reviewed w/ Provider: Sep 07, 2017 Comments Comments 47 yo F with cirrhosis secondary to alcohol use who presented to the ED upon mandatory senior care by law enforcement due to threat of self harm. Pt is well known to the service, complaints of abdominal pain, and head pain from an injury patient does not recall. Temp 97.9-->102.4 HR tachy 110-120s WBC 11.7 Plt 162 Neut % 82% Hgb 8.5 Lactate 6.1-->5.5-->6.8-->6.8 K 3.4 Scr 0.5 JAIMEE 351 Ammonia 11 Mag 1.5-->1.8 09/07/17: Peritoneal Fluid - Gram Stain (-) no organisms, few WBCs, Culture pending 09/06/17: Head CT - parietal/occipital scalp hematoma, no intracranial abnormality 09/06/17: Chest Xray-- no acute trauma 09/06/17: CT abdomen - body wall edema, liver cirrhosis, ascites, splenomegaly 09/07/17: Peritoneal Fluid Analysis -pH 7, WBC 19, RBC 2208, Neuts 33, protein <2 09/07/17: Blood Cx pending 1. Fever/Abdominal Pain/Ascites--febrile, elevated WBCs, elevated lactate (may be falsely elevated due to liver disease), peritoneal fluid (-) thus far, Blood cultures incubating, question infection vs. alcohol withdrawal. Started on Levofloxacin 500mg IV Q24H and Ceftriaxone 2g IV daily--> possible SBP. Continue to monitor and de-escalate therapy as cultures return as appropriate. Peritoneal fluid analysis as above, consider alcohol withdrawal and monitor closely. Will continue antibiotics while cultures are incubating. Monique Manley, PharmD, BCOP MONIQUE MANLEY Sep 07, 2017 13:57
--- NOTE | 2017-09-07 16:05 | Hospitalist Progress Note ---
Subjective Progress Notes Subjective She has fever today. She is awake and alert. She is oriented to person, place, but not to time. Physical Exam Vital Signs Date Time Temp Pulse Resp B/P (MAP) Pulse Ox O2 Delivery O2 Flow Rate FiO2 09/07/17 12:31 102.4 125 16 127/64 (85) 91 Room Air Intake and Output 09/08/17 07:00 Intake Total 2071 ml Balance 2071 ml Intake Oral 0 ml IV Total 2071 ml General Appearance: Alert, Awake, Other (some tremulousness) Neuro: Other (generalized weakness, but no focal deficits) Eyes: PERRLA, Other (scleral icterus) ENT: Other (small abrasion over occipital area) Cardiovascular: Other (tachycardic regular) Respiratory: Other (fairly clear) GI: Other (distended/fluid wave present/soft) Extremities: Warm, Perfused, Edema (2-3+ dependent) Result Diagram: 09/07/17 0532 09/07/17 0532 Assessment and Plan Problems: (1) Suicidal ideation Status: Acute Assessment & Plan: She apparently said that she didn't want to live. She was placed on an emergency mcc in the ER. She denied any desire to hurt herself to Dr. Linwood Baig. Will continue to watch closely. May need to have psychiatry see at her when acute problems have improved/resolved. (2) Confusion Status: Acute Assessment & Plan: Secondary to alcohol intoxication, withdrawal, concussion, and/or hepatic encephalopathy. She could have an acute infectious process as well. Will check peritoneal fluid. Will also do influenza testing. We will cover with IV Rocephin and Levaquin while cultures pending. (3) Dehydration Status: Acute Assessment & Plan: Secondary to poor intake and alcohol intoxication. Lactate has continued to be elevated. Will continue to monitor. (4) Hypomagnesemia Status: Chronic Assessment & Plan: She is receiving electrolyte replacement. Watch labs. (5) Ascites due to alcoholic cirrhosis Status: Chronic Assessment & Plan: She appears near her baseline. CT didn't show any acute abnormalities. Her WBC was normal initially, but is now elevated. Concern she could have an occult infection. Will check ascites for possible spontaneous peritonitis. Cover with IV Rocephin and Levaquin (we do not have cefotaxime available). Also evaluating for possible influenza. Exam Sepsis Risk: No Definite Risk MOOSE LAZAR MD Sep 07, 2017 16:04
[2017-09-07] MEDS: KCL/NS* 20 MEQ/1000 ML PREMIX 1,000 ML IV SCH ×2 (16:41→23:45)
[2017-09-07 16:43] VITALS: BP 122/56
[2017-09-07] MEDS ORDERED: INSULIN HUM LISPRO 100 UN/ML 3 ML VIAL SUBQ PRN (17:15)
[2017-09-07 19:53] VITALS: BP 118/73
[2017-09-07 23:39] VITALS: BP 119/67
[2017-09-08] VITALS (8 sets, daily range): BP systolic 102–137; BP diastolic 59–83
[2017-09-08] MEDS: LORazepam 1 MG TAB PO PRN ×2 (02:38→06:24)
[2017-09-08] MEDS: KCL/NS* 20 MEQ/1000 ML PREMIX 1,000 ML IV SCH ×2 (06:24→15:07)
[2017-09-08 06:28] LABS: PLATELET COUNT, AUTOMATED 97 K/uL (150-450)
[2017-09-08 06:35] LABS: INR 2.5
[2017-09-08] MEDS: THIAMINE HCL 100 MG TAB PO SCH (09:31)
[2017-09-08] MEDS: FOLIC ACID 1 MG TAB PO SCH (09:31)
[2017-09-08] MEDS: LEVOFLOXACIN/D5W 750 MG/150 ML 150 ML IVPB SCH (09:31)
[2017-09-08] MEDS ORDERED: KCL (*) 20 MEQ/100 ML PREMIX 100 ML IV ONE (10:00)
--- NOTE | 2017-09-08 12:50 | Hospitalist Progress Note ---
Subjective Progress Notes Subjective The patient is awake and alert but slow to answer questions. Physical Exam Vital Signs Date Time Temp Pulse Resp B/P (MAP) Pulse Ox O2 Delivery O2 Flow Rate FiO2 09/08/17 10:55 93 Room Air 09/08/17 09:53 99.2 93 20 124/64 (84) Intake and Output 09/09/17 07:00 Intake Total 222 ml Balance 222 ml Intake Oral 222 ml # Voids 1 General Appearance: Alert, Awake Neuro: Other (Slow to answer questions but answers are appropriate.) Eyes: Other (Sclera icteric.) ENT: Other (Mucous membranes are dry.) Cardiovascular: Regular Rate and Rhythm Respiratory: Clear to Auscultation GI: Other (Distended. Bandage in place right abdomen. ) Extremities: Warm, Perfused, Other (1+ edema.) Integumentary: Other (Jaundiced.) Result Diagram: 09/08/1751909/08/17519 Assessment and Plan Problems: (1) Suicidal ideation Status: Acute Assessment & Plan: She apparently said that she didn't want to live. She was placed on an emergency fci in the ER. She denied any desire to hurt herself to Dr. Linwood Baig. Will continue to watch closely. May need to have psychiatry see at her when acute problems have improved/resolved. (2) Confusion Status: Acute Assessment & Plan: Secondary to alcohol intoxication, withdrawal, concussion, and/or hepatic encephalopathy. She could have an acute infectious process as well. Blood and peritoneal fluid culture negative to date. Influenza testing negative. UA and CXR unremarkable. We will cover with IV Rocephin and Levaquin while cultures pending. (3) Dehydration Status: Acute Assessment & Plan: Secondary to poor intake and alcohol intoxication. Lactate with prolonged elevation but finally normal today. (4) Hypomagnesemia Status: Chronic Assessment & Plan: She is receiving electrolyte replacement. Watch labs. (5) Ascites due to alcoholic cirrhosis Status: Chronic Assessment & Plan: She appears near her baseline. CT didn't show any acute abnormalities. Her WBC was normal initially, but is now elevated. Concern she could have an occult infection. Will check ascites for possible spontaneous peritonitis. Cover with IV Rocephin and Levaquin (we do not have cefotaxime available). Time Spent on Plan of Care: < 30 min Exam Sepsis Risk: No Definite Risk GAVIN LAZAR MD Sep 08, 2017 12:50
[2017-09-08] MEDS: cefTRIAXone 2 GM VIAL IVP SCH (13:36)
--- NOTE | 2017-09-08 14:53 | Medical Nutrition Therapy ---
Nutrition Anthropometrics Height (Inches): 65 Weight (Pounds): 139 Weight (Calculated Kilograms): 63.106 BMI Calculated: 21.96 Marshall Nutrition Score: Probably Inadequate Marshall Nutrition Risk Score: 14 Dietary Referral Nutrition Risk Factors: Nutrition Risk Comment: Pt tates recent vomiting and diarrhea Nutritional Diagnosis Nutritional Risk Acuity 2: Liver Cirrhosis Nutritional Risk Acuity 3: Nausea, Alcohol abuse Past Medical History: alcohol abuse, alcohol induced cirrhosis, depression, GERD Nutritional Acuity: 2-Moderate Nutrition Diagnosis: Increased Nutrient Needs Nutrition Etiology: Physiological Causes Nutrition Problem/Etiology/Sym: r/t dx liver cirrohis AEB alb 1.7, Energy Requirement: 1635 (M- StJ) Protein Requirement: 69 (1.1gm/kg) Fluid Requirement: 1890 Diet Type: Diabetic Nutrition Intervention: Cont diet as ordered, Encourage intake, Between meal supplement Calorie/Protein Count Date: Apr 06, 2017 Protien: 30 Additional Diet Restrictions: PROVIDE 90GM CARBS BREAKFAST, 75GM CARBS LUNCH AND SUPPER Diet Comment To [facility]: OFFER NUT SUPPLMENT COUNTING PART OF CARBS Nutrition Monitoring & Eval Nutrition Goals: Eat 75-100% Meal Nutrition Follow-Up: Poor Intake RD Patient Assessment Time: [address] Assessment Type: RD Assessment Patient Nutrition Acuity: 2-Moderate Follow Up Date: Sep 12, 2017 Nutritional Comment: 3 Pt admitted for alcohol abuse with cirrosis. Pt reporting N/V. Diet changed to diabetic. BG 195. alb 2.4 Pt recieving folate and thiamin. Pt eating 0-24% of meals. Will offer nutr supplment to increase kcal and protein intake. 09/08 Pt cont on diabetic diet. Alb declined to 1.7. Offering nutr supplement but pt not taking supplments and refused 50% of meals. Pt reporting diarrhea and nursing reporting pt is confused which may be affecting intake . Will cont to monitor and encourage intake. NYLA ARAUJO Sep 08, 2017 14:53
[2017-09-08] MEDS: VANCOMYCIN 1 GM ADDVIAL 1 GM in NS(*) 0.9% 250 ML ADDVAN BAG 250 ML IVPB SCH (17:31)
[2017-09-08] MEDS ORDERED: NS(*) 0.9% 500 ML BAG 500 ML ONE (18:50)
[2017-09-08] MEDS ORDERED: VANCOMYCIN 1 GM ADDVIAL 1 GM in NS(*) 0.9% 250 ML ADDVAN BAG 250 ML IVPB SCH (21:00)
[2017-09-08] MEDS: LORazepam 2 MG/ML VIAL IVP PRN (22:38)
[2017-09-09] VITALS (7 sets, daily range): BP systolic 106–130; BP diastolic 64–85
[2017-09-09] MEDS: KCL/NS* 20 MEQ/1000 ML PREMIX 1,000 ML IV SCH ×4 (04:45→22:08)
[2017-09-09 05:56] LABS: PLATELET COUNT, AUTOMATED 84 K/uL (150-450)
[2017-09-09] MEDS: VANCOMYCIN 1 GM ADDVIAL 1 GM in NS(*) 0.9% 250 ML ADDVAN BAG 250 ML IVPB SCH ×2 (06:11→16:53)
[2017-09-09 06:12] LABS: INR 2.28
[2017-09-09] MEDS: CALCIUM CARBONATE 500 MG CHEW PO PRN (08:33)
[2017-09-09] MEDS: FOLIC ACID 1 MG TAB PO SCH (08:33)
[2017-09-09] MEDS: THIAMINE HCL 100 MG TAB PO SCH (08:34)
[2017-09-09] MEDS ORDERED: MAGNESIUM SUL* 2 GM/50 ML IVPB 50 ML IVPB ONE (09:45)
[2017-09-09] MEDS: LEVOFLOXACIN/D5W 750 MG/150 ML 150 ML IVPB SCH (11:04)
--- NOTE | 2017-09-09 11:55 | Hospitalist Progress Note ---
Subjective Progress Notes Subjective She does respond to simple verbal commands. Less tremulous. Physical Exam Vital Signs Date Time Temp Pulse Resp B/P (MAP) Pulse Ox O2 Delivery O2 Flow Rate FiO2 09/09/17 07:49 99.3 95 22 125/75 (92) 95 Room Air Intake and Output 09/10/17 07:00 Intake Total 1097 ml Balance 1097 ml IV Total 1097 ml # Voids 1 # Bowel Movements 1 General Appearance: Alert, Awake, Other (some tremulousness/jaundiced) ENT: Other (sclera icteric) Cardiovascular: Regular Rate and Rhythm Respiratory: Clear to Auscultation GI: Other (slightly distended/soft/BS present/fluid wave present) Extremities: Warm, Edema Result Diagram: 09/09/17 0509/09/17 05 Item Value Date Time Albumin 1.9 g/dl L 09/09/17 0516 Total Protein 6.0 gm/dl L 09/09/17 0516 Alkaline Phosphatase 118 U/L 09/09/17 0516 Alanine Aminotransferase (ALT/SGPT) 35 U/L 09/09/17 0516 Aspartate Amino Transf (AST/SGOT) 71 U/L H 09/09/17 0516 Total Bilirubin 5.5 mg/dl H 09/09/17 0516 Magnesium Level 1.5 mg/dl L 09/09/17 0516 Phosphorus Level 2.1 mg/dl L 09/09/17 0516 Calcium Level 7.9 mg/dl L 09/09/17 0516 Prothromb Time International Ratio 2.28 09/09/17 05 Prothrombin Time 25.8 seconds H 09/09/17 0516 Assessment and Plan Problems: (1) Suicidal ideation Status: Acute Assessment & Plan: She apparently said that she didn't want to live. She was placed on an emergency assisted in the ER. She denied any desire to hurt herself to Dr. Linwood Baig. Will continue to watch closely. May need to have psychiatry see at her when acute problems have improved/resolved. (2) Confusion Status: Acute Assessment & Plan: Secondary to alcohol intoxication, withdrawal, concussion, and/or hepatic encephalopathy. She could have an acute infectious process as well. Peritoneal fluid culture is negative to date. One of two blood cultures is growing coagulase positive staph. Influenza testing negative. UA and CXR unremarkable. She is currently on IV vancomycin, Rocephin and Levaquin while cultures final reports are pending. (3) Dehydration Status: Acute Assessment & Plan: Secondary to poor intake and alcohol intoxication. Lactate with prolonged elevation, but finally did normalize. (4) Hypomagnesemia Status: Chronic Assessment & Plan: She is receiving electrolyte replacement. Watch labs. 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 She appears to be showing some very slight improvements in her status. Unfortunately, her terminal supervisor prognosis is very poor. CT didn't show any acute abnormalities. Her WBC was normal initially, but did elevate and is now back to normal. There is concern she could have an occult infection. She is on the IV antibiotics as noted. Exam Sepsis Risk: No Definite Risk MOOSE LAZAR MD Sep 09, 2017 11:54
[2017-09-09] MEDS: cefTRIAXone 2 GM VIAL IVP SCH (13:45)
[2017-09-10] MEDS: KCL/NS* 20 MEQ/1000 ML PREMIX 1,000 ML IV SCH ×2 (05:04→16:57)
[2017-09-10] MEDS: VANCOMYCIN 1 GM ADDVIAL 1 GM in NS(*) 0.9% 250 ML ADDVAN BAG 250 ML IVPB SCH (05:44)
[2017-09-10 06:20] LABS: INR 2.38; PLATELET COUNT, AUTOMATED 74 K/uL (150-450)
[2017-09-10 06:41] VITALS: BP 105/73
[2017-09-10] MEDS: LEVOFLOXACIN/D5W 750 MG/150 ML 150 ML IVPB SCH (09:34)
[2017-09-10] MEDS: THIAMINE HCL 100 MG TAB PO SCH (09:34)
[2017-09-10] MEDS: FOLIC ACID 1 MG TAB PO SCH (09:34)
[2017-09-10] MEDS ORDERED: MAGNESIUM SUL* 2 GM/50 ML IVPB 50 ML IVPB ONE (10:20)
--- NOTE | 2017-09-10 10:25 | Hospitalist Progress Note ---
Subjective Progress Notes Subjective This patient was admitted for dehydration. She had no acute events overnight. Patient Complains of: Cardiovascular: No: Chest Pain Respiratory: No: Shortness of Breath Physical Exam Vital Signs Date Time Temp Pulse Resp B/P (MAP) Pulse Ox O2 Delivery O2 Flow Rate FiO2 09/10/17 08:17 94 09/10/17 06:41 98.2 88 18 105/73 (84) Room Air 09/10/17 00:48 0.5 Intake and Output 09/11/17 07:00 Intake Total 1629 ml Balance 1629 ml Intake Oral 60 ml IV Total 1569 ml Cardiovascular: Regular Rate and Rhythm Respiratory: Clear to Auscultation Extremities: Edema Integumentary: No Jaundice Result Diagram: 09/10/17 0530 09/10/17 0000 Item Value Date Time Blood Culture - Final Resulted 09/07/17 1039 Blood Assessment and Plan Problems: (1) Sepsis due to methicillin susceptible Staphylococcus aureus Assessment & Plan: She did have a fever and lactic acidosis. Her ascitic fluid culture was negative, but one of her blood cultures is now positive for methicillin sensitive Staphylococcus. She has been on treatment with levofloxacin, ceftriaxone, and vancomycin. We will stop the vancomycin and ceftriaxone today. (2) Suicidal ideation Status: Acute Assessment & Plan: She was placed on an emergency fci, but this has since been lifted. She was evaluated by psychiatry. The current plan is that she will discharge to the care of her . (3) Confusion Status: Acute Assessment & Plan: Her ammonia level has been normal, but she has remained confused through the admission. A head CT scan was negative for intracranial pathology. A repeat ammonia level is ordered for the morning. (4) Dehydration Status: Acute Assessment & Plan: Resolved with IV fluids. (5) Hypomagnesemia Status: Chronic Assessment & Plan: Her levels have been low despite intermittent replacement. She will receive another dose of IV magnesium today. A repeat level is ordered for the morning. 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 Exam Sepsis Risk: No Definite Risk MARIAM SEAY DO Sep 10, 2017 10:25
[2017-09-10 11:30] VITALS: BP 107/72
[2017-09-10 15:27] VITALS: BP 103/58
[2017-09-10 22:19] VITALS: BP 115/65
[2017-09-10 23:44] VITALS: BP 107/61
[2017-09-11] MEDS: KCL/NS* 20 MEQ/1000 ML PREMIX 1,000 ML IV SCH ×5 (01:03→19:23)
[2017-09-11 03:57] VITALS: BP 114/66
[2017-09-11 06:14] LABS: PLATELET COUNT, AUTOMATED 70 K/uL (150-450)
[2017-09-11 08:05] VITALS: BP 123/81
[2017-09-11] MEDS: FOLIC ACID 1 MG TAB PO SCH (08:52)
[2017-09-11] MEDS: THIAMINE HCL 100 MG TAB PO SCH (08:52)
[2017-09-11] MEDS: LEVOFLOXACIN/D5W 750 MG/150 ML 150 ML IVPB SCH (09:34)
[2017-09-11 11:57] VITALS: BP 119/77
[2017-09-11] MEDS: MORPHINE 2 MG/ML SYR IVP PRN ×2 (14:57→21:08)
[2017-09-11 15:13] VITALS: BP 129/82
--- NOTE | 2017-09-11 16:10 | Hospitalist Progress Note ---
Subjective Progress Notes Subjective The patient continues to complain of pain in the back of her head. Physical Exam Vital Signs Date Time Temp Pulse Resp B/P (MAP) Pulse Ox O2 Delivery O2 Flow Rate FiO2 09/11/17 15:13 98.6 86 28 129/82 (98) 95 Room Air 09/10/17 00:48 0.5 Intake and Output 09/12/17 07:00 Intake Total 798 ml Balance 798 ml Intake Oral 120 ml IV Total 678 ml # Voids 1 # Bowel Movements 1 General Appearance: Alert, Awake, No Acute Distress, Other (Mild increased work of breathing.) Neuro: No Gross deficits Eyes: Other (Sclera icteric.) ENT: Other (Dry mouth.) Cardiovascular: Regular Rate and Rhythm Respiratory: Clear to Auscultation (Anteriorly. Decreased BS L base.) GI: Other (Abdomen distended, nontender.) Extremities: Warm, Perfused, Edema (2-3+ feet.) Integumentary: Generalized Fragile Skin Psych: Appropriate Mood & Affect Result Diagram: 09/11/1759 09/11/17558 Assessment and Plan Problems: (1) Sepsis due to methicillin susceptible Staphylococcus aureus Assessment & Plan: She did have a fever and lactic acidosis. Her ascitic fluid culture was negative, but one of her blood cultures turned positive for methicillin sensitive Staphylococcus. She had been on treatment with levofloxacin, ceftriaxone, and vancomycin. The vancomycin and ceftriaxone were stopped 09/10. (2) Suicidal ideation Status: Acute Assessment & Plan: She was placed on an emergency longterm, but this has since been lifted. She was evaluated by psychiatry. The current plan is that she will discharge to the care of her . (3) Confusion Status: Acute Assessment & Plan: Her ammonia level has been normal, but she has remained confused through the admission. A head CT scan was negative for intracranial pathology. A repeat ammonia level is normal this morning. (4) Dehydration Status: Acute Assessment & Plan: Resolved with IV fluids. (5) Hypomagnesemia Status: Chronic Assessment & Plan: Her levels have been low despite intermittent replacement. A repeat level today was just within normal limits. Will recheck in am. 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 Unfortunately , her nursing home prognosis is very poor. She did have a paracentesis on admission , but the fluid reaccumulated overnight. Will monitor. Time Spent on Plan of Care: < 30 min Exam Sepsis Risk: No Definite Risk GAVIN LAZAR MD Sep 11, 2017 16:10
[2017-09-11 20:59] VITALS: BP 108/65
[2017-09-12] MEDS: MORPHINE 2 MG/ML SYR IVP PRN ×5 (04:04→21:57)
[2017-09-12 04:08] VITALS: BP 117/73
[2017-09-12 06:29] LABS: PLATELET COUNT, AUTOMATED 76 K/uL (150-450)
[2017-09-12 06:56] LABS: INR 1.98
[2017-09-12] MEDS: KCL/NS* 20 MEQ/1000 ML PREMIX 1,000 ML IV SCH ×2 (07:36→10:43)
[2017-09-12 07:41] VITALS: BP 108/69
[2017-09-12] MEDS: THIAMINE HCL 100 MG TAB PO SCH (09:41)
[2017-09-12] MEDS: LEVOFLOXACIN/D5W 750 MG/150 ML 150 ML IVPB SCH (09:41)
[2017-09-12] MEDS: FOLIC ACID 1 MG TAB PO SCH (09:41)
[2017-09-12] MEDS ORDERED: MAGNESIUM SUL* 2 GM/50 ML IVPB 50 ML IVPB ONE (10:45)
[2017-09-12 11:25] VITALS: BP 115/81
--- NOTE | 2017-09-12 13:23 | Medical Nutrition Therapy ---
Nutrition Anthropometrics Height (Inches): 65 Weight (Pounds): 139 Weight (Calculated Kilograms): 63.106 BMI Calculated: 21.96 Marshall Nutrition Score: Very Poor Marshall Nutrition Risk Score: 16 Dietary Referral Nutrition Risk Factors: Nutrition Risk Comment: Pt tates recent vomiting and diarrhea Physical Findings Physical Appearance: WNL Skin Appearance Skin Appearance: Edema Edema Location Modifier: Both Edema Location: Lower Extremity Type of Edema: Degree of Edema: 3+ Gastrointestinal Symptoms GI Symtoms: Diarrhea Tube Present: Bowel Sounds: Recent Bowel Pattern: Stool Characteristics: Nutrition/Food History Decreased Appetite Skipped Meals: Yes Alcohol Use: Currently Nutritional Diagnosis Nutritional Risk Acuity 2: Liver Cirrhosis Nutritional Risk Acuity 3: Nausea, Alcohol abuse Past Medical History: alcohol abuse, alcohol induced cirrhosis, depression, GERD Nutritional Acuity: 2-Moderate Nutrition Diagnosis: Increased Nutrient Needs Nutrition Etiology: Physiological Causes Nutrition Problem/Etiology/Sym: r/t dx liver cirrohis AEB alb 1.7, Energy Requirement: 1635 (M- StJ) Protein Requirement: 69 (1.1gm/kg) Fluid Requirement: 1890 Diet Type: Diet as Tolerated MIESHA/REG Nutrition Intervention: Cont diet as ordered, Encourage intake, Between meal supplement Calorie/Protein Count Date: Apr 06, 2017 Protien: 30 Food Likes: loves strawberry banana core power Additional Diet Restrictions: PROVIDE 90GM CARBS BREAKFAST, 75GM CARBS LUNCH AND SUPPER Diet Comment To [facility]: OFFER NUT SUPPLMENT COUNTING PART OF CARBS Nutrition Monitoring & Eval Nutrition Goals: Eat 50-100% Meal RD Patient Assessment Time: [address] Assessment Type: RD Re-Assessment Patient Nutrition Acuity: 2-Moderate Follow Up Date: Sep 12, 2017 Nutritional Comment: 09/07 Pt admitted for alcohol abuse with cirrosis. Pt reporting N/V. Diet changed to diabetic. BG 195. alb 2.4 Pt recieving folate and thiamin. Pt eating 0-24% of meals. Will offer nutr supplment to increase kcal and protein intake. 09/08 Pt cont on diabetic diet. Alb declined to 1.7. Offering nutr supplement but pt not taking supplments and refused 50% of meals. Pt reporting diarrhea and nursing reporting pt is confused which may be affecting intake . Will cont to monitor and encourage intake. 09/12 Alb 1.9. Diet changed to MIESHA. Appetite and intake have improved to 75-100% of meals consumed. Follow intake, etc MARY JERNIGAN Sep 12, 2017 13:23
--- NOTE | 2017-09-12 13:27 | Hospitalist Progress Note ---
Subjective Progress Notes Subjective She is more awake and alert. Less tremulous. Physical Exam Vital Signs Date Time Temp Pulse Resp B/P (MAP) Pulse Ox O2 Delivery O2 Flow Rate FiO2 09/12/17 11:25 98.4 90 14 115/81 (92) 95 Room Air 09/10/17 00:48 0.5 Intake and Output 09/13/17 07:00 Intake Total 488 ml Balance 488 ml Intake Oral 0 ml IV Total 488 ml General Appearance: Alert, Awake Neuro: Other (generalized weakness) Eyes: Other (sclera icteric) Cardiovascular: Regular Rate and Rhythm Respiratory: Clear to Auscultation Chest: No Tenderness GI: Other (distended with reported mild tenderness diffusely/caput medusa venous changes/fluid wave present) Extremities: Warm, Perfused, Edema Integumentary: Generalized Fragile Skin Result Diagram: 09/12/1752209/12/17522 Assessment and Plan Problems: (1) 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 She has shown some slight improvements in her status over the past couple of days. She did have a paracentesis on admission, but the fluid reaccumulated quickly. Will monitor. (2) Sepsis due to methicillin susceptible Staphylococcus aureus Assessment & Plan: She did have a fever and lactic acidosis. Her ascitic fluid culture was negative, but one of her blood cultures turned positive for methicillin sensitive Staphylococcus. She had been on treatment with levofloxacin, ceftriaxone, and vancomycin. The vancomycin and ceftriaxone were stopped 09/10 as it is sensitive to the Levaquin. (3) Suicidal ideation Status: Acute Assessment & Plan: She was placed on an emergency jail, but this has since been lifted. She was evaluated by psychiatry. The current plan is that she will discharge to the care of her . (4) Confusion Status: Acute Assessment & Plan: Most likely related to acute infection, hepatic encephalopathy, acute intoxication, withdrawal. Her ammonia level has been normal, but she had remained confused through the admission. A head CT scan was negative for intracranial pathology. She is now starting to "clear". (5) Dehydration Status: Acute Assessment & Plan: Resolved with IV fluids. (6) Hypomagnesemia Status: Chronic Assessment & Plan: Her levels have been variable. She has received intermittent replacement. Monitor. Exam Sepsis Risk: No Definite Risk MOOSE LAZAR MD Sep 12, 2017 13:27
[2017-09-12 19:31] VITALS: BP 126/89
[2017-09-12 22:21] VITALS: BP 126/72
[2017-09-13] MEDS: MORPHINE 2 MG/ML SYR IVP PRN ×6 (01:58→20:34)
[2017-09-13 06:00] VITALS: BP 144/95
[2017-09-13 06:03] LABS: PLATELET COUNT, AUTOMATED 91 K/uL (150-450)
[2017-09-13 06:21] LABS: INR 1.9
[2017-09-13 08:04] VITALS: BP 101/67
[2017-09-13] MEDS: FOLIC ACID 1 MG TAB PO SCH (09:22)
[2017-09-13] MEDS: THIAMINE HCL 100 MG TAB PO SCH (09:22)
[2017-09-13] MEDS: LEVOFLOXACIN/D5W 750 MG/150 ML 150 ML IVPB SCH (09:22)
[2017-09-13 12:58] VITALS: BP 113/61
[2017-09-13 14:51] VITALS: BP 117/72
--- NOTE | 2017-09-13 15:33 | Medical Nutrition Therapy ---
Nutrition Anthropometrics Height (Inches): 65 Weight (Pounds): 139 Weight (Calculated Kilograms): 63.106 BMI Calculated: 21.96 Marshall Nutrition Score: Very Poor Marshall Nutrition Risk Score: 15 Dietary Referral Nutrition Risk Factors: Nutrition Risk Comment: Pt tates recent vomiting and diarrhea Physical Findings Physical Appearance: WNL Skin Appearance Skin Appearance: Edema Edema Location Modifier: Both Edema Location: abdomen Type of Edema: Degree of Edema: 1+ Gastrointestinal Symptoms GI Symtoms: Diarrhea Tube Present: Bowel Sounds: Recent Bowel Pattern: Stool Characteristics: Nutrition/Food History Alcohol Use: Currently Nutritional Diagnosis Nutritional Risk Acuity 2: Liver Cirrhosis Nutritional Risk Acuity 3: Nausea, Alcohol abuse Past Medical History: alcohol abuse, alcohol induced cirrhosis, depression, GERD Nutritional Acuity: 2-Moderate Nutrition Diagnosis: Increased Nutrient Needs Nutrition Etiology: Physiological Causes Nutrition Problem/Etiology/Sym: r/t dx liver cirrohis AEB alb 1.7, Energy Requirement: 1635 (M- StJ) Protein Requirement: 69 (1.1gm/kg) Fluid Requirement: 1890 Diet Type: Diet as Tolerated MIESHA/REG Nutrition Intervention: Cont diet as ordered, Encourage intake, Between meal supplement Calorie/Protein Count Date: Apr 06, 2017 Protien: 30 Food Likes: loves strawberry banana core power Additional Diet Restrictions: PROVIDE 90GM CARBS BREAKFAST, 75GM CARBS LUNCH AND SUPPER Diet Comment To [facility]: OFFER NUT SUPPLMENT COUNTING PART OF CARBS Nutrition Monitoring & Eval Nutrition Goals: Eat 75-100% Meal RD Patient Assessment Time: [address] Assessment Type: RD Re-Assessment Patient Nutrition Acuity: 2-Moderate Follow Up Date: Sep 16, 2017 Nutritional Comment: 3 Pt admitted for alcohol abuse with cirrosis. Pt reporting N/V. Diet changed to diabetic. BG 195. alb 2.4 Pt recieving folate and thiamin. Pt eating 0-24% of meals. Will offer nutr supplment to increase kcal and protein intake. 09/08 Pt cont on diabetic diet. Alb declined to 1.7. Offering nutr supplement but pt not taking supplments and refused 50% of meals. Pt reporting diarrhea and nursing reporting pt is confused which may be affecting intake . Will cont to monitor and encourage intake. 09/12 Alb 1.9. Diet changed to MIESHA. Appetite and intake have improved to 75-100% of meals consumed. Follow intake, etc 09/13 Alb increased to 2.1. Seems to be tolerating MIESHA with 50-100% intake at meals. Continue to monitor and encourage intake. MARY JERNIGAN Sep 13, 2017 15:33
--- NOTE | 2017-09-13 18:44 | Hospitalist Progress Note ---
Subjective Progress Notes Subjective The patient still has some pain in the back of her head. No new complaints. Physical Exam Vital Signs Date Time Temp Pulse Resp B/P (MAP) Pulse Ox O2 Delivery O2 Flow Rate FiO2 09/13/17 14:51 98.1 80 14 117/72 (87) 96 Room Air 09/10/17 00:48 0.5 Intake and Output 09/14/17 07:00 Intake Total 770 ml Balance 770 ml Intake Oral 620 ml IV Total 150 ml # Voids 4 # Bowel Movements 2 General Appearance: Alert, Awake, No Acute Distress Eyes: Other (Sclera icteric.) Cardiovascular: Regular Rate and Rhythm Respiratory: Clear to Auscultation GI: Other (Distended, diffusely tender.) Extremities: Warm, Perfused, Edema Psych: Appropriate Mood & Affect Result Diagram: 09/13/1753909/13/17539 Assessment and Plan Problems: (1) 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 Unfortunately, her usp prognosis is very poor. She has shown some slight improvements in her status over the past couple of days. She did have a paracentesis on admission, but the fluid reaccumulated quickly. Will monitor. (2) Sepsis due to methicillin susceptible Staphylococcus aureus Assessment & Plan: She did have a fever and lactic acidosis. Her ascitic fluid culture was negative, but one of her blood cultures turned positive for methicillin sensitive Staphylococcus. She had been on treatment with levofloxacin, ceftriaxone, and vancomycin. The vancomycin and ceftriaxone were stopped 09/10 as it is sensitive to the Levaquin. (3) Suicidal ideation Status: Acute Assessment & Plan: She was placed on an emergency nursing home, but this has since been lifted. She was evaluated by psychiatry. The current plan is that she will discharge to the care of her . (4) Confusion Status: Acute Assessment & Plan: Most likely related to acute infection, hepatic encephalopathy, acute intoxication, withdrawal. Her ammonia level has been normal, but she had remained confused through the admission. A head CT scan was negative for intracranial pathology. She is now starting to "clear". (5) Dehydration Status: Acute Assessment & Plan: Resolved with IV fluids. (6) Hypomagnesemia Status: Chronic Assessment & Plan: Her levels have been variable. She has received intermittent replacement. Monitor. Time Spent on Plan of Care: < 30 min Exam Sepsis Risk: No Definite Risk GAVIN LAZAR MD Sep 13, 2017 18:44
[2017-09-13 19:16] VITALS: BP 123/73
[2017-09-13] MEDS: KCL/NS* 20 MEQ/1000 ML PREMIX 1,000 ML IV SCH (22:54)
[2017-09-14] MEDS: MORPHINE 2 MG/ML SYR IVP PRN ×6 (00:34→21:51)
[2017-09-14 04:38] VITALS: BP 110/67
[2017-09-14 06:36] LABS: PLATELET COUNT, AUTOMATED 102 K/uL (150-450)
[2017-09-14 06:37] LABS: INR 1.92
[2017-09-14 08:25] VITALS: BP 106/66
[2017-09-14] MEDS: FOLIC ACID 1 MG TAB PO SCH (08:36)
[2017-09-14] MEDS: LEVOFLOXACIN/D5W 750 MG/150 ML 150 ML IVPB SCH (08:36)
[2017-09-14] MEDS: THIAMINE HCL 100 MG TAB PO SCH (08:36)
[2017-09-14] MEDS: KCL/NS* 20 MEQ/1000 ML PREMIX 1,000 ML IV SCH (10:43)
[2017-09-14 11:31] VITALS: BP 111/66
[2017-09-14 14:40] VITALS: BP 97/57
[2017-09-14] MEDS ORDERED: THIA100T58 PO (15:45)
--- NOTE | 2017-09-14 15:51 | Hospitalist Depart ---
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 She underwent paracentesis on admission, but the fluid has already reaccumulated. She has refused admission to hospice or the fdc, but she has agreed to home health. (2) Sepsis due to methicillin susceptible Staphylococcus aureus Hospital Course & Plan: She did have a fever and lactic acidosis. Her ascitic fluid culture was negative, but one of her blood cultures turned positive for methicillin sensitive Staphylococcus. She had been on treatment with levofloxacin, ceftriaxone, and vancomycin. The vancomycin and ceftriaxone were stopped. She has now completed a full course of the levofloxacin. (3) Suicidal ideation Status: Acute Hospital Course & Plan: She was placed on an emergency skilled nursing, but this has since been lifted. She was evaluated by psychiatry. The current plan is that she will discharge to the care of her and home health. (4) Confusion Status: Acute Hospital Course & Plan: Most likely related to acute infection, hepatic encephalopathy, acute intoxication, withdrawal. Her ammonia level has been normal, but she had remained confused through most of the admission. A head CT scan was negative for intracranial pathology. She has now improved to her baseline. (5) Dehydration Status: Acute Hospital Course & Plan: Resolved with IV fluids. (6) Hypomagnesemia Status: Chronic Hospital Course & Plan: She has received intermittent replacement. Departure Latest Vital Signs Vital Signs 09/10/17 09/14/17 09/14/17 00:48 11:31 14:40 Temp 98.3 Pulse 85 Resp 16 B/P (MAP) 97/57 (70) Pulse Ox 95 O2 Delivery Room Air O2 Flow Rate 0.5 Weight (Pounds): 139 Weight (Ounces): 2.0 Result Diagram: 09/14/17 0544 09/14/1744 Condition: Improved Discharge: Home, Home Health PT/OT Follow Up For: PT For Strengthening Home Health SERVICE CAPTAIN Follow Up For: ADL Assistance Discharge Instructions Home Meds Active Scripts Thiamine Hcl (VITAMIN B-1) 100 Mg Tablet, 100 MG PO QDAY, #30 TAB Prov:MARIAM SEAY DO 09/14/17 Furosemide (FUROSEMIDE) 20 Mg Tablet, 20 MG PO QDAY, #30 TAB 1 Refill Prov:MOOSE LAZAR MD 07/25/17 Reported Medications Folic Acid (FOLIC ACID) 0.4 Mg Tablet, 0.4 MG PO DAILY 07/23/17 Cyanocobalamin (Vitamin B-12) (B-12) 1,500 Mcg Tab.rapdis, 1500 MCG PO DAILY 07/23/17 Fluoxetine Hcl (FLUOXETINE HCL) 20 Mg Capsule, 1 CAP PO QDAY, CAPSULE 06/21/17 Discontinued Reported Medications Potassium Gluconate (POTASSIUM) 99 Mg Tablet, 99 MG PO DAILY 06/21/17 Discontinued Scripts Spironolactone (SPIRONOLACTONE) 25 Mg Tablet, 25 MG PO QDAY, #30 TAB 1 Refill Prov:MOOSE LAZAR MD 07/25/17 Lactulose (LACTULOSE) 10 Gm/15 Ml Solution, 10 GM PO QDAY, #473 ML Hold if more than 3 diarrheal stools a day. Prov:MOOSE LAZAR MD 07/25/17 Diet: Regular Activity: As Tolerated Copies to: AMIRAH RUTHERFORD DO Venous Thromboembolism Antithrombotics Is Pt On Any Antithrombotics?: No [id number] Certification Face to Face Home Health Certification Institutional Provider conducted the [id number] encounter. Electronic Undersigning Physician Certifies Home Health. I certify that the patient has been under my care and that I had a [id number] encounter that meets the physician [id number] encounter requirements with this patient. This patient is home-bound due to safety issues and continues to require assistance with ADL's. I certify that based on my findings, that Nursing, Aides and the following Home Health services are medically necessary: Medical Necessity: Nursing, Rehab Date Face to Face Conducted: Sep 14, 2017 MARIAM SEAY DO Sep 14, 2017 15:51
[2017-09-14 21:41] VITALS: BP 117/62
[2017-09-14] MEDS: CALCIUM CARBONATE 500 MG CHEW PO PRN (21:52)
[2017-09-15] MEDS: MORPHINE 2 MG/ML SYR IVP PRN ×3 (00:38→05:07)
[2017-09-15 05:09] VITALS: BP 107/57
--- NOTE | 2017-09-15 08:10 | Miscellaneous Provider Note ---
Miscellaneous Provider Note Note This patient was scheduled for discharge yesterday, but it was delayed for logistical reasons. She will discharge today. There were no changes overnight. MARIAM SEAY DO Sep 15, 2017 08:09
== END 2017-09-15 08:00 | disposition home health service (06) | DRG 640 ==
LOC: ER 16:39 → INTOOBSV 20:24 → OBSVTOIN 20:24 → MED 20:24 → UNDOADMOB 20:24
PROVIDERS: ADMIT Internal Medicine; ATTEND Internal Medicine
PROC: 0W9G3ZZ Drainage of Peritoneal Cavity, Percutaneous Approach (ICD-10-PCS; principal; 2017-09-07)
DX: E86.0 Dehydration (principal); A41.01 Sepsis due to Methicillin susceptible Staphylococcus aureus; R45.851 Suicidal ideations; E83.42 Hypomagnesemia; K21.9 Gastro-esophageal reflux disease without esophagitis; D64.9 Anemia, unspecified; S00.03XA Contusion of scalp, initial encounter; K70.31 Alcoholic cirrhosis of liver with ascites; R60.0 Localized edema; F10.229 Alcohol dependence with intoxication, unspecified; Y90.8 Blood alcohol level of 240 mg/100 ml or more; F32.9 Major depressive disorder, single episode, unspecified; W19.XXXA Unspecified fall, initial encounter; R19.7 Diarrhea, unspecified; R11.2 Nausea with vomiting, unspecified; E87.2 Acidosis; R51 Headache; Z68.23 Body mass index [BMI] 23.0-23.9, adult; Z98.82 Breast implant status
CPT/HCPCS: 36415; 36416; 36430; 70450; 71045; 72125; 74018; 74176; 80202; 80305; 80320; 80329; 81001; 81025; 82040; 82140; 82247; 82310; 82374; 82435; 82550; 82565; 82800; 82945; 82947; 82948; 83605; 83690; 83735; 83986; 84075; 84100; 84132; 84155; 84157; 84295; 84443; 84450; 84460; 84484; 84520; 85025; 85610; 86850; 86870; 86900; 86901; 86922; 87040; 87071; 87073; 87077; 87186; 87205; 87502; 89050; 90471; 90715; 93005; 96365; 96366; 97162; 97165; 99285; A4353; C9399; J0696; J1956; J2001; J2060; J2270; J3370; J3411; J3475; J3480; J7030; J7040; J7050; P9016

== ENCOUNTER → 2017-09-06 | Outpatient (CLI) | payer BC ==
[2017-07-23 11:48] VITALS: BMI 22.0
[~2017-09-06] MED LIST changes: +BISM262T97 PO; -PEP PO
== END ==
LOC: AMB 15:49
PROVIDERS: ATTEND Nurse Practitioner
DX: R41.82 Altered mental status, unspecified (principal); F10.20 Alcohol dependence, uncomplicated; N18.4 Chronic kidney disease, stage 4 (severe)
CPT/HCPCS: A0425; A0429

== ENCOUNTER → 2017-09-22 | Outpatient (CLI) | payer BC ==
[2017-07-23 11:48] VITALS: BMI 22.0
[~2017-09-22] MED LIST changes: +LIDOCAINE 2% MDV 400MG/20ML VL ONE
[2017-09-22 11:26] VITALS: BP 118/74
--- NOTE | 2017-09-22 12:31 | Post Operative Progress Note ---
Post Operative Progress Note Date: Sep 22, 2017 Time: 12:30 Surgeon: anatoly Anesthesia: local Pre-Op Diagnosis: ascites and hematoma posterior scalp Post-Op Diagnosis: same Procedure(s): abdominal paracentesis and aspiration of scalp hematoma Specimen Removed:(May be N/A): 7 liters of abdominal fluid and 7 cc of old blood from the scalp CHATA SYLVESTER MD Sep 22, 2017 12:31
--- NOTE | 2017-09-22 12:32 | Short(Outpt) Discharge Summary ---
Discharge Summary Reason for Hosp/Final Diag: (1) Ascites due to alcoholic cirrhosis Status: Chronic Hospital Course & Plan: paracentesis 7 liters removed and aspiration of scalp hematoma 7 cc Departure Discharge to: Home Discharge Instructions Home Meds Active Scripts Thiamine Hcl (VITAMIN B-1) 100 Mg Tablet, 100 MG PO QDAY, #30 TAB Prov:MARIAM SEAY DO 09/14/17 Furosemide (FUROSEMIDE) 20 Mg Tablet, 20 MG PO QDAY, #30 TAB 1 Refill Prov:MOOSE LAZAR MD 07/25/17 Reported Medications Folic Acid (FOLIC ACID) 0.4 Mg Tablet, 0.4 MG PO DAILY 07/23/17 Cyanocobalamin (Vitamin B-12) (B-12) 1,500 Mcg Tab.rapdis, 1500 MCG PO DAILY 07/23/17 Fluoxetine Hcl (FLUOXETINE HCL) 20 Mg Capsule, 1 CAP PO QDAY, CAPSULE 06/21/17 Diet: Regular Activity: As Tolerated CHATA SYLVESTER MD Sep 22, 2017 12:32
[2017-09-22 12:44] VITALS: BP 106/68
== END ==
LOC: SPU 07:38
PROVIDERS: ATTEND Surgery
DX: K70.31 Alcoholic cirrhosis of liver with ascites (principal)
CPT/HCPCS: 10160; 49082; A7048; J2001

== ENCOUNTER → 2017-10-04 | Outpatient (CLI) | payer BC ==
[2017-07-23 11:48] VITALS: BMI 22.0
[2017-10-04 12:36] VITALS: BP 123/69
--- NOTE | 2017-10-04 14:08 | Post Operative Progress Note ---
Post Operative Progress Note Date: Oct 04, 2017 Time: 14:07 Surgeon: anatoly Anesthesia: local Pre-Op Diagnosis: symptomatic ascites Post-Op Diagnosis: same Procedure(s): paracentesis Specimen Removed:(May be N/A): 5900cc removed CHATA SYLVESTER MD Oct 04, 2017 14:07
--- NOTE | 2017-10-04 14:09 | Short(Outpt) Discharge Summary ---
Discharge Summary Reason for Hosp/Final Diag: (1) Ascites due to alcoholic cirrhosis Status: Chronic Hospital Course & Plan: 5900 cc removed Departure Discharge to: Home Discharge Instructions Home Meds Active Scripts Thiamine Hcl (VITAMIN B-1) 100 Mg Tablet, 100 MG PO QDAY, #30 TAB Prov:MARIAM SEAY DO 09/14/17 Furosemide (FUROSEMIDE) 20 Mg Tablet, 20 MG PO QDAY, #30 TAB 1 Refill Prov:MOOSE LAZAR MD 07/25/17 Reported Medications Folic Acid (FOLIC ACID) 0.4 Mg Tablet, 0.4 MG PO DAILY 07/23/17 Cyanocobalamin (Vitamin B-12) (B-12) 1,500 Mcg Tab.rapdis, 1500 MCG PO DAILY 07/23/17 Fluoxetine Hcl (FLUOXETINE HCL) 20 Mg Capsule, 1 CAP PO QDAY, CAPSULE 06/21/17 Diet: Regular Activity: As Tolerated Special Instructions: call [phone] if any problems CHATA SYLVESTER MD Oct 04, 2017 14:09
--- NOTE | 2017-10-04 21:30 | PROCEDURE NOTE ---
EVENT DATE: October 04, 2017 SURGEON: Eric Moy MD ANESTHESIA: Local. PREOPERATIVE DIAGNOSIS Symptomatic ascites. POSTOPERATIVE DIAGNOSIS Symptomatic ascites. PROCEDURE PERFORMED Paracentesis. DESCRIPTION OF PROCEDURE The patient was placed in the reclining position. Ultrasound was used to show a good position in the right side of the abdomen. This was marked. It was then anesthetized with 1% Xylocaine. A james was made in the skin with a #11 blade. Paracentesis needle was inserted at an angle, and good fluid was returned. We then proceeded to remove 5900 mL of yellowish clear ascitic fluid. The flow ceased. We had her change positions a few different times, but did not make much difference on the return of fluid. The catheter was removed. Op-Site was placed. Patient tolerated the procedure well. No apparent complication. [facility]
== END ==
LOC: SPU 12:27
PROVIDERS: ATTEND Surgery
DX: K70.31 Alcoholic cirrhosis of liver with ascites (principal)
CPT/HCPCS: 49083; J2001

== ENCOUNTER 2018-01-13 20:45 | Emergency (ER) | payer BC ==
[2017-07-23 11:48] VITALS: Wt 63.1 kg
[~2018-01-13 20:45] MED LIST changes: -LIDOCAINE 2% MDV 400MG/20ML VL ONE; -PEN400 PO; +PENT400T57 PO; -SPIR25TA78 PO; +SPIR25TA80 PO; +THIA100T20 PO; -THIA100T58 PO
--- NOTE | 2018-01-13 21:05 | ER Report ---
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 She has known cirrhosis of the liver. During her last admission she had gross ascites. She undergoes paracentesis by Dr. Tomlin with ultrasound guidance. During her last admission. Medical staff encouraged her to consider hospice, but patient declined. Patient admits she continues to drink 2 bottles of wine per day. She notes onset of back pain this afternoon around 3 PM. She's had no vomiting or hematemesis. She's had no glottic stools or blood per rectum. REVIEW OF SYSTEMS: Respiratory: No cough, no dyspnea. Cardiovascular: No chest pain, no palpitations. Gastrointestinal: No vomiting, no abdominal pain. Musculoskeletal: As above Allergies: Coded Allergies: No Known Drug Allergies (Verified , 01/13/18) Home Meds Active Scripts Tramadol Hcl (TRAMADOL HCL) 50 Mg Tablet, 1 TAB PO Q6H Y for PAIN, #12 MG TAKE ONE TABLETS BY MOUTH EVERY SIx HOURS NEEDED Prov:HOANG KENNY DO 01/13/18 Ondansetron (ZOFRAN ODT) 4 Mg Tab.rapdis, 4 MG PO Q6H Y for NAUSEA/VOMITING, # 12 TAB.FATOU Prov:EFRAÍNHOANG DO 01/13/18 Thiamine Hcl (VITAMIN B-1) 100 Mg Tablet, 100 MG PO QDAY, #30 TAB Prov:MARIAM SEAY DO 09/14/17 Furosemide (FUROSEMIDE) 20 Mg Tablet, 20 MG PO QDAY, #30 TAB 1 Refill Prov:MOOSE LAZAR MD 07/25/17 Reported Medications Folic Acid (FOLIC ACID) 0.4 Mg Tablet, 0.4 MG PO DAILY 07/23/17 Cyanocobalamin (Vitamin B-12) (B-12) 1,500 Mcg Tab.rapdis, 1500 MCG PO DAILY 07/23/17 Fluoxetine Hcl (FLUOXETINE HCL) 20 Mg Capsule, 1 CAP PO QDAY, CAPSULE 06/21/17 Reviewed Nurses Notes: Yes Old Medical Records Reviewed: Yes Hx Smoking: No Smoking Status: Never Smoker Hx Substance Use Disorder: No Hx Alcohol Use: Yes Constitutional Vital Sign - Last 24 Hours 01/13/18 01/13/18 01/13/18 01/13/18 21:00 21:02 21:15 21:30 Pulse ??? 100 91 B/P (MAP) 130/80 (97) Pulse Ox 95 91 01/13/18 01/13/18 01/13/18 01/13/18 21:45 21:48 22:00 22:15 Temp 98.7 Pulse 91 93 ? Resp 18 B/P (MAP) 130/80 Pulse Ox 97 99 O2 Delivery Room Air 01/13/18 01/13/18 22:30 22:33 Pulse 89 B/P (MAP) 124/65 (84) Pulse Ox 87 Physical Exam General Appearance: The patient is alert, has no immediate need for airway protection and no current signs of toxicity. Vital signs stable, afebrile, pulse ox normal, jaundice-appearing Eyes: Pupils equal and round no injection. Icteric sclera, Respiratory: Chest is non tender, lungs are clear to auscultation. Cardiac: regular rate and rhythm Gastrointestinal: Abdomen is soft , mild distention, positive fluid wave consistent with ascites and non tender, no masses, bowel sounds normal. Musculoskeletal: Neck: Neck is supple and non tender. Extremities have full range of motion and are non tender. 1+ edema bilaterally Skin: No rashes or lesions. DIFFERENTIAL DIAGNOSIS: After history and physical exam differential diagnosis was considered for back pain including but not limited to muscular pain, herniated disc, spine fracture, intra-abdominal causes and urinary tract infection. Additionally,abdominal pain including but not limited to appendicitis, cholecystitis, gastritis and urinary tract infection. Medical Decision Making Data Points Result Diagram: 01/13/18219901/13/182199 Laboratory Hematology Test 01/13/18 22:00 Red Blood Count 3.42 M/uL (4.17-5.56) Mean Corpuscular Volume 93.3 fL (80.0-96.0) Mean Corpuscular Hemoglobin 33.4 pg (26.0-33.0) Mean Corpuscular Hemoglobin Concent 35.8 g/dL (32.0-36.0) Red Cell Distribution Width 14.7 % (11.5-14.5) Mean Platelet Volume 6.5 fL (7.2-11.1) Neutrophils (%) (Auto) 60.1 % (39.4-72.5) Lymphocytes (%) (Auto) 29.9 % (17.6-49.6) Monocytes (%) (Auto) 7.1 % (4.1-12.4) Eosinophils (%) (Auto) 1.9 % (0.4-6.7) Basophils (%) (Auto) 1.0 % (0.3-1.4) Nucleated RBC Relative Count (auto) 0.1 /100WBC Neutrophils # (Auto) 5.2 K/uL (2.0-7.4) Lymphocytes # (Auto) 2.6 K/uL (1.3-3.6) Monocytes # (Auto) 0.6 K/uL (0.3-1.0) Eosinophils # (Auto) 0.2 K/uL (0.0-0.5) Basophils # (Auto) 0.1 K/uL (0.0-0.1) Nucleated RBC Absolute Count (auto) 0.01 K/uL Erythrocyte Sedimentation Rate 7 mm/HOUR (0-20) Prothrombin Time 20.7 seconds (12.0-14.4) Prothromb Time International Ratio 1.75 Activated Partial Thromboplast Time 51 seconds (23-35) Sodium Level 139 mmol/L (137-145) Potassium Level 3.6 mmol/L (3.5-5.0) Chloride Level 98 mmol/L (98-107) Carbon Dioxide Level 25 mmol/L (22-31) Blood Urea Nitrogen 10 mg/dl (7-18) Creatinine 0.70 mg/dl (0.52-1.04) Glomerular Filtration Rate Calc > 60.0 Random Glucose 115 mg/dl (75-110) Lactate 5.5 mmol/L (0.7-2.1) Calcium Level 8.5 mg/dl (8.4-10.2) Total Bilirubin 7.4 mg/dl (0.2-1.3) Aspartate Amino Transf (AST/SGOT) 101 U/L (0-35) Alanine Aminotransferase (ALT/SGPT) 29 U/L (0-56) Alkaline Phosphatase 148 U/L (0-126) C-Reactive Protein 0.6 mg/dl (<1.0) Total Protein 8.1 g/dl (6.3-8.2) Albumin 3.8 g/dl (3.5-5.0) Amylase Level 75 U/L (0-110) Lipase 119 U/L (23-300) Serum Alcohol 269 mg/dl Chemistry Test 01/13/18 22:00 White Blood Count 8.7 k/uL (4.5-11.0) Red Blood Count 3.42 M/uL (4.17-5.56) Hemoglobin 11.4 g/dL (12.0-16.0) Hematocrit 31.9 % (34.0-47.0) Mean Corpuscular Volume 93.3 fL (80.0-96.0) Mean Corpuscular Hemoglobin 33.4 pg (26.0-33.0) Mean Corpuscular Hemoglobin Concent 35.8 g/dL (32.0-36.0) Red Cell Distribution Width 14.7 % (11.5-14.5) Platelet Count 169 K/uL (150-450) Mean Platelet Volume 6.5 fL (7.2-11.1) Neutrophils (%) (Auto) 60.1 % (39.4-72.5) Lymphocytes (%) (Auto) 29.9 % (17.6-49.6) Monocytes (%) (Auto) 7.1 % (4.1-12.4) Eosinophils (%) (Auto) 1.9 % (0.4-6.7) Basophils (%) (Auto) 1.0 % (0.3-1.4) Nucleated RBC Relative Count (auto) 0.1 /100WBC Neutrophils # (Auto) 5.2 K/uL (2.0-7.4) Lymphocytes # (Auto) 2.6 K/uL (1.3-3.6) Monocytes # (Auto) 0.6 K/uL (0.3-1.0) Eosinophils # (Auto) 0.2 K/uL (0.0-0.5) Basophils # (Auto) 0.1 K/uL (0.0-0.1) Nucleated RBC Absolute Count (auto) 0.01 K/uL Erythrocyte Sedimentation Rate 7 mm/HOUR (0-20) Prothrombin Time 20.7 seconds (12.0-14.4) Prothromb Time International Ratio 1.75 Activated Partial Thromboplast Time 51 seconds (23-35) Glomerular Filtration Rate Calc > 60.0 Lactate 5.5 mmol/L (0.7-2.1) Calcium Level 8.5 mg/dl (8.4-10.2) Total Bilirubin 7.4 mg/dl (0.2-1.3) Aspartate Amino Transf (AST/SGOT) 101 U/L (0-35) Alanine Aminotransferase (ALT/SGPT) 29 U/L (0-56) Alkaline Phosphatase 148 U/L (0-126) C-Reactive Protein 0.6 mg/dl (<1.0) Total Protein 8.1 g/dl (6.3-8.2) Albumin 3.8 g/dl (3.5-5.0) Amylase Level 75 U/L (0-110) Lipase 119 U/L (23-300) Serum Alcohol 269 mg/dl Coagulation Test 01/13/18 22:00 Prothrombin Time 20.7 seconds Prothromb Time International Ratio 1.75 Activated Partial Thromboplast Time 51 seconds Toxicology Test 01/13/18 22:00 Serum Alcohol 269 mg/dl EKG/Imaging EKG Interpretation 12 lead EK Rhythm: normal sinus rhythm [place]: normal QRS: normal, prolonged QT ST segments: normal, no evidence of ischemia or dysrhythmia, comparison to previous EKG dated 09/06/16, no significant overall morphologic change ED Course/Re-evaluation Clinical Indication for ER IV: IV Access ED Course Patient was admitted to an examination room. H&P was done. The differential diagnosis was considered. On clinical examination. Patient has abdominal ascites. She has end-stage liver disease. She claims she hasn't drank for 24 hours. Her blood alcohol returns at 269. Patient was given fentanyl 50 William grams for pain relief. Since patient has coagulopathy and liver disease. She is unable take NSAIDs or Tylenol. I'll give her a limited supply of tramadol for temporary pain relief. Zofran to control her vomiting. Patient encouraged not to drink. Decision to Disposition Date: Jan 13, 2018 Decision to Disposition Time: 22:48 Depart Departure Latest Vital Signs Vital Signs Date Time Temp Pulse Resp B/P (MAP) Pulse Ox O2 Delivery O2 Flow Rate FiO2 01/13/18 22:33 124/65 (84) 01/13/18 22:30 89 87 01/13/18 21:48 98.7 18 Room Air Impression: Primary Impression: Back pain Additional Impressions: Chronic alcoholic liver disease Alcohol intoxication Vomiting Condition: Improved Disposition: HOME OR SELF-CARE Referrals: AMIRAH VENEGAS DO (PCP) New Scripts Tramadol Hcl (TRAMADOL HCL) 50 Mg Tablet 1 TAB PO Q6H Y for PAIN, #12 MG TAKE ONE TABLETS BY MOUTH EVERY SIx HOURS NEEDED Prov: EFRAÍNRAJINDERY Jaguar MONROY 01/13/18 Ondansetron (ZOFRAN ODT) 4 Mg Tab.rapdis 4 MG PO Q6H Y for NAUSEA/VOMITING, #12 TAB.FATOU Prov: HOANG KENNY DO 01/13/18 Patient Instructions: Alcohol Dependence (ED), Back Pain (ED) Additional Instructions: Stop drinking alcohol Follow-up with Dr. Venegas early next week Problem Qualifiers Primary Impression: Back pain Back pain location: back pain in unspecified location Chronicity: acute Back pain laterality: right Qualified Codes: M54.9 - Dorsalgia, unspecified Additional Impressions: Alcohol intoxication Complication of substance-induced condition: uncomplicated Qualified Codes: F10.920 - Alcohol use, unspecified with intoxication, uncomplicated Vomiting Vomiting type: unspecified Vomiting Intractability: unspecified Nausea presence: unspecified Qualified Codes: R11.10 - Vomiting, unspecified HOANG KENNY DO Jan 13, 2018 21:05
[2018-01-13] MEDS ORDERED: fentaNYL CITR 100 MCG/2 ML AMP IVP ONE (21:15)
--- NOTE | 2018-01-13 21:39 | EKG ---
FACILITY: [facility] PATIENT NAME: QUITA MCLAUGHLIN : [id number] MR: [id number] V: [id number] EXAM DATE: ORDERING PHYSICIAN: HOANG KENNY TECHNOLOGIST: ROVERTO Test Reason : BACK PAIN Blood Pressure : / mmHG Vent. Rate : 097 BPM Atrial Rate : 097 BPM P-R Int : 172 ms QRS Dur : 080 ms QT Int : 384 ms P-R-T Axes : 077 057 068 degrees QTc Int : 487 ms Sinus rhythm Decreased R wave progression anteriorly Prolonged QT Abnormal ECG Confirmed by MOOSE LAZAR ([id number]) on 01/14/2018 5:51:10 AM Referred By: Confirmed By:MOOSE LAZAR
[2018-01-13 22:09] LABS: PLATELET COUNT, AUTOMATED 169 K/uL (150-450)
[2018-01-13 22:33] VITALS: BP 124/65
[2018-01-13 22:37] LABS: INR 1.75
--- NOTE | 2018-01-13 22:49 | RADIOLOGY IMAGING REPORT ---
FACILITY: [facility] [place] PATIENT NAME: Awa Grace : 1970 MR: [id number] V: [id number] EXAM DATE: ORDERING PHYSICIAN: HOANG KENNY TECHNOLOGIST: Location: [facility] [place] Patient: Awa Grace : 1970 Visit/Account:[id number] Date of Sevice: 01/13/2018 EXAMINATION: Lumbar Spine 5 views HISTORY: Back pain. COMPARISON: CT abdomen/pelvis 09/06/2017. FINDINGS: There are 5 lumbar-type vertebral segments. No radiographic evidence of acute fracture or subluxation in the lumbar spine. Normal alignment. Vertebral body height and disc spaces are preserved. No vi sualized pars defect on the oblique views. IMPRESSION: Unremarkable lumbar spine series. Report Dictated By: Ty Trevizo MD at 01/13/2018 10:44 PM Report E-Signed By: Ty Trevizo MD at 01/13/2018 10:46 PM WSN:[id number]
[2018-01-13] MEDS ORDERED: ONDANSETRON 4 MG ODT TH SL ONE (22:55)
[2018-01-13] MEDS ORDERED: traMADol 50 MG TAB TH 2 TAB/BOTTLE PO ONE (22:55)
[2018-01-13] MEDS ORDERED: ONDA4TAB PO (22:56)
[2018-01-13] MEDS ORDERED: TRAM-420 PO (22:56)
== END 2018-01-13 23:26 | disposition home or self-care (01) ==
LOC: ER 21:13
DX: M54.9 Dorsalgia, unspecified (principal); R18.8 Other ascites; N18.6 End stage renal disease; F10.920 Alcohol use, unspecified with intoxication, uncomplicated; Y90.8 Blood alcohol level of 240 mg/100 ml or more; R11.10 Vomiting, unspecified; R94.31 Abnormal electrocardiogram [ECG] [EKG]
CPT/HCPCS: 72120; 80320; 82150; 83605; 83690; 85025; 85610; 85651; 85730; 86140; 93005; 96374; 99284; J3010; 82040; 82247; 82310; 82374; 82435; 82565; 82947; 84075; 84132; 84155; 84295; 84450; 84460; 84520

== ENCOUNTER 2018-07-05 00:21 | Day surgery (SDC) | payer BC ==
[2017-07-23 11:48] VITALS: Ht 172.7 cm; Wt 62.6 kg
--- NOTE | 2018-06-29 14:24 | NUR ---
SPOKE WITH PT ON PHONE FOR PREOP INTERVIEW, NOTED PT SLURRING WORDS, NOT RESPONDING TO QUESTIONS PROMPTLY OCCASSIONALY THROUGHOUT INTERVIEW, UNABLE TO RECALL SIMPLE INSTRUCTIONS, POOR HISTORIAN, REQUESTED THAT PT WRITE DOWN CHECK IN TIMES AND WHAT MEDICATIONS TO TAKE MORNING OF PROCEDURE. SPOKE WITH DR. ROLDAN REGARDING TESTING WAS ADVISED TO ORDER AN HCG AND ALCOHOL (ETOH) LEVEL ON DAY OF PROCEDURE, ORDERS IN.
[2018-07-05] VITALS (8 sets, daily range): BP systolic 89–132; BP diastolic 52–98
[~2018-07-05] VITALS: Ht 172.7 cm; Wt 62.6 kg
[~2018-07-05 00:21] MED LIST changes: +FLUO-202 PO; +HYDR-385 PO; +MILK1CAP4 PO; +ONDA-2 PO; +ONDA4TAB PO; +PANT40TA65 PO; +SUCR1TAB51 PO; +THIA25PO MC; +TRAM-420 PO; +VITA1CAP46 PO
[2018-07-05] MEDS ORDERED: PROPOFOL EMUL(*) 10MG/ML 20 ML 40 ML ONE (06:59)
[2018-07-05] MEDS ORDERED: NORMOSOL R SOLN(*) 1000 ML BAG 1,000 ML IV PRN (11:10)
[2018-07-05] MEDS ORDERED: GLYCOPYRROLATE 0.2MG/ML 1 ML INJ IVP ONE (11:10)
[2018-07-05] MEDS ORDERED: LIDOCAINE/SOD BICARB 8.4% SYR ID ONE (11:10)
[2018-07-05] MEDS ORDERED: PROPOFOL EMUL(*) 10MG/ML 20 ML 20 ML ONE ×4 (11:59→12:24)
--- NOTE | 2018-07-05 12:37 | NUR ---
1237- PT BROUGHT TO STEP DOWN BAY 6, PT IN SUPINE POSITION, OXY MASK IN PLACE AT 8LPM, PT MAINTAINING SATS, RESPIRATIONS AND AIRWAY, PT UNRESPONSIVE AT THIS TIME, VSS, MOM TAYLER IS AT BEDSIDE, SBAR REPORT FROM Chantel BROUSSARD RN AND DR. MENJIVAR 1243- PT REMAINS SLEEPING, UNRESPONSIVE AT THIS TIME, WILL CONTINUE TO MONITOR
--- NOTE | 2018-07-05 12:42 | Short(Outpt) Discharge Summary ---
Discharge Summary Reason for Hosp/Final Diag: (1) PUD (peptic ulcer disease) Status: Chronic Hospital Course & Plan: EGD with polypectomy x1 and biopsies and colonoscopy completed without problems. (2) Colon cancer screening Status: Chronic (3) Chronic alcoholic liver disease Status: Chronic Departure Discharge to: Home, Self Care Discharge Instructions Home Meds Active Scripts Furosemide (FUROSEMIDE) 20 Mg Tablet, 20 MG PO QDAY, #30 TAB 1 Refill Prov:MOOSE LAZAR MD 07/25/17 Reported Medications Fluoxetine Hcl (PROZAC) 20 Mg Capsule, 20 MG PO QDAY, CAPSULE 06/29/18 Vitamin B Complex (VITAMIN B COMPLEX) 1 Each Capsule, 1 EACH PO DAILY, CAPSULE 06/28/18 Thiamine Hcl (THIAMINE HCL) Unknown Strength Powder, MC 06/28/18 Sucralfate (SUCRALFATE) 1 Gm Tablet, 1 GM PO Q6H 06/28/18 Spironolactone (SPIRONOLACTONE) 25 Mg Tablet, 25 MG PO DAILY, TAB 06/28/18 Pantoprazole Sodium (PANTOPRAZOLE SODIUM) 40 Mg Tablet.dr, 40 MG PO BID, TAB.SR 06/28/18 Ondansetron Hcl (ONDANSETRON HCL) 4 Mg Tablet, 4 MG PO Q6H, TAB 06/28/18 Milk Thistle Seed Extract (MILK THISTLE) Unknown Strength Capsule, PO, CAPSULE 06/28/18 Hydrocodone Bit/Acetaminophen (HYDROCODON-ACETAMINOPHEN 5-325) 1 Each Tablet, 1 EACH PO Q6H, TAB 06/28/18 Discontinued Reported Medications Fluoxetine Hcl (FLUOXETINE HCL) 20 Mg Capsule, 1 CAP PO QDAY, CAPSULE 06/21/17 Folic Acid (FOLIC ACID) 0.4 Mg Tablet, 0.4 MG PO DAILY 07/23/17 Cyanocobalamin (Vitamin B-12) (B-12) 1,500 Mcg Tab.rapdis, 1500 MCG PO DAILY 07/23/17 Discontinued Scripts Tramadol Hcl (TRAMADOL HCL) 50 Mg Tablet, 1 TAB PO Q6H PRN for PAIN, #12 MG TAKE ONE TABLETS BY MOUTH EVERY SIx HOURS NEEDED Prov:HOANG KENNY DO 01/13/18 Ondansetron (ZOFRAN ODT) 4 Mg Tab.rapdis, 4 MG PO Q6H PRN for NAUSEA/VOMITING, #12 TAB.FATOU Prov:HOANG KENNY DO 01/13/18 Thiamine Hcl (VITAMIN B-1) 100 Mg Tablet, 100 MG PO QDAY, #30 TAB Prov:GEENAMARIAM DO 09/14/17 Diet: Regular Activity: As Tolerated Special Instructions: Your upper endoscopy and colonoscopy were completed without problems and your colon prep was excellent (Good Job!!). I didn't find any ulcers or inflammation in your stomach, duodenum, or esophagus. I did find a polyp in your stomach and I removed it and sent it to pathology and I biopsied your stomach to look for a bacteria called H.pylori which can lead to ulcers. Your colonoscopy was completely normal, no polyps or other abnormalities in your colon or rectum. My office will call you in the next week or two and let you know what the biopsy results are from your stomach but I recommend that you continue taking the pantoprazole until August 04 at which time you can stop it. I recommend that you have another colonoscopy at 58 years old. MARIAM WALKER MD Jul 05, 2018 12:42
--- NOTE | 2018-07-05 12:47 | NUR ---
1247- PT EYES OPEN, DROWSY, DECREASED O2 TO 5LPM VIA OXY MASK 1250- PT IS VERBAL REMAINS DROWSY, PT PLACED ON RA 1300- PT AWAKE A/O X 3, TOLERATING SIPS OF CRANBERRY JUICE 1305- PT TOLERATING CRACKERS AND CHOCOLATE PUDDING 1313- SL IV 1325- REVIEWED D/C INSTRUCTIONS WITH PT AND FAMILY 1327- SITTING VSS 1332- STANDING VSS 1335- PT AMBULATORY TO RESTROOM, STEADY GAIT NOTED 1340- PT REPORTS VOID X 1 WITHOUT ISSUE, PT DRESSED 1345- D/C IV WITH CATH INTACT, PRESSURE DRESSING APPLIED WITH GAUZE AND COBAND 1350- PT AMBULATED TO [facility], ACCOMPANIED BY MOM TAYLER AND ISMAEL SZYMANSKI
== END 2018-07-05 13:50 | disposition home or self-care (01) ==
LOC: OR 00:21
PROVIDERS: ATTEND Surgery
DX: Z12.11 Encounter for screening for malignant neoplasm of colon (principal); K27.7 Chronic peptic ulcer, site unspecified, without hemorrhage or perforation; K70.9 Alcoholic liver disease, unspecified
CPT/HCPCS: 00813; 43251; 45378; 80320; 87077; 88305; 88344; J2704; J3490

== ENCOUNTER 2018-12-18 11:54 | Inpatient (IN) | payer BC ==
[2017-07-23 11:48] VITALS: Wt 70.4 kg
[~2018-12-18 11:54] MED LIST changes: -PENT400T57 PO; +PENT400T83 PO
--- NOTE | 2018-12-18 11:58 | ER Report ---
History and Physical Time Seen By MD: 11:56 Hx. of Stated Complaint: cough. alcohol ingestion HPI/ROS 48 year old female h/o alcoholism. drinks vodka. cough x 1 month. brought to er by private vehicle by her neighbor her travels for work and is currently in [place] Allergies: Coded Allergies: No Known Drug Allergies (Verified , 01/13/18) Home Meds Active Scripts Furosemide (FUROSEMIDE) 20 Mg Tablet, 20 MG PO QDAY, #30 TAB 1 Refill Prov:MOOSE ESTRADA MD 07/25/17 Reported Medications Tramadol Hcl (TRAMADOL HCL) 50 Mg Tablet, 50 MG PO QDAY PRN for PAIN, TAB 12/18/18 Fluoxetine Hcl (PROZAC) 40 Mg Capsule, 40 MG PO QDAY, CAPSULE 12/18/18 Potassium Chloride (POTASSIUM CHLORIDE) 10 Meq Capsule.er, 10 MEQ PO BID 12/18/18 Hydroxyzine Hcl (HYDROXYZINE HCL) 50 Mg Tablet, 2 TAB PO HS 12/18/18 Spironolactone (SPIRONOLACTONE) 25 Mg Tablet, 25 MG PO DAILY, TAB 06/28/18 Discontinued Reported Medications Fluoxetine Hcl (PROZAC) 20 Mg Capsule, 20 MG PO QDAY, CAPSULE 06/29/18 Vitamin B Complex (VITAMIN B COMPLEX) 1 Each Capsule, 1 EACH PO DAILY, CAPSULE 06/28/18 Thiamine Hcl (THIAMINE HCL) Unknown Strength Powder, MC 06/28/18 Sucralfate (SUCRALFATE) 1 Gm Tablet, 1 GM PO Q6H 06/28/18 Pantoprazole Sodium (PANTOPRAZOLE SODIUM) 40 Mg Tablet.dr, 40 MG PO BID, TAB.SR 06/28/18 Ondansetron Hcl (ONDANSETRON HCL) 4 Mg Tablet, 4 MG PO Q6H, TAB 06/28/18 Milk Thistle Seed Extract (MILK THISTLE) Unknown Strength Capsule, PO, CAPSULE 06/28/18 Hydrocodone Bit/Acetaminophen (HYDROCODON-ACETAMINOPHEN 5-325) 1 Each Tablet, 1 EACH PO Q6H, TAB 06/28/18 Past Medical/Surgical History alcoholism , depression, gerd, htn , hyst Hx Smoking: No Smoking Status: Never Smoker Hx Substance Use Disorder: No Hx Alcohol Use: No Family History of: HTN Constitutional Vital Sign - Last 24 Hours 12/18/18 12/18/18 12/18/18 6/17/19 12:00 12:02 12:15 12:27 Temp 98.6 Pulse 99 97 Resp 16 B/P (MAP) 113/86 135/87 (103) Pulse Ox 88 87 90 O2 Delivery Room Air Nasal Cannula O2 Flow Rate 1.0 12/18/18 12/18/18 12/18/18 12/18/18 12:27 12:30 13:00 13:30 Pulse 92 93 83 87 Resp 20 25 17 15 B/P (MAP) 120/72 (88) 100/54 (69) Pulse Ox 91 Physical Exam 48 year old female appears older. savanna, speech slurred, no jvd, hrr, lungs decreased bases, and soft, sebastian, full pulses Medical Decision Making Data Points Result Diagram: 12/18/18 1210 12/18/18 1210 Laboratory Hematology Test 12/18/18 00:00 12/18/18 12:10 Troponin I < 0.012 ng/ml Red Blood Count 3.64 M/uL (4.17-5.56) Mean Corpuscular Volume 86.8 fL (80.0-96.0) Mean Corpuscular Hemoglobin 28.9 pg (26.0-33.0) Mean Corpuscular Hemoglobin Concent 33.3 g/dL (32.0-36.0) Red Cell Distribution Width 18.7 % (11.5-14.5) Mean Platelet Volume 7.8 fL (7.2-11.1) Neutrophils (%) (Auto) 40.8 % (39.4-72.5) Lymphocytes (%) (Auto) 48.0 % (17.6-49.6) Monocytes (%) (Auto) 5.5 % (4.1-12.4) Eosinophils (%) (Auto) 3.7 % (0.4-6.7) Basophils (%) (Auto) 2.0 % (0.3-1.4) Nucleated RBC Relative Count (auto) 0.1 /100WBC Neutrophils # (Auto) 2.9 K/uL (2.0-7.4) Lymphocytes # (Auto) 3.4 K/uL (1.3-3.6) Monocytes # (Auto) 0.4 K/uL (0.3-1.0) Eosinophils # (Auto) 0.3 K/uL (0.0-0.5) Basophils # (Auto) 0.1 K/uL (0.0-0.1) Nucleated RBC Absolute Count (auto) 0.01 K/uL D-Dimer Quantitative (PE/DVT) 0.47 ug/ml (0-0.50) Sodium Level 147 mmol/L (137-145) Potassium Level 3.7 mmol/L (3.5-5.0) Chloride Level 107 mmol/L (98-107) Carbon Dioxide Level 24 mmol/L (22-31) Blood Urea Nitrogen 11 mg/dl (7-18) Creatinine 0.70 mg/dl (0.52-1.04) Glomerular Filtration Rate Calc > 60.0 Random Glucose 161 mg/dl (75-110) Calcium Level 8.0 mg/dl (8.4-10.2) Magnesium Level 1.8 mg/dl (1.7-2.2) Total Bilirubin 2.3 mg/dl (0.2-1.3) Aspartate Amino Transf (AST/SGOT) 104 U/L (0-35) Alanine Aminotransferase (ALT/SGPT) 46 U/L (0-56) Alkaline Phosphatase 220 U/L (0-126) Ammonia 42 UMOL/L (9-33) B-Type Natriuretic Peptide 47 pg/ml (0-100) Total Protein 7.6 g/dl (6.3-8.2) Albumin 3.8 g/dl (3.5-5.0) Thyroid Stimulating Hormone (TSH) 0.89 uIU/ml (0.46-4.68) Salicylates Level < 10 mg/L Salicylate Last Dose Date unk Acetaminophen Level < 10 ug/ml Serum Alcohol 397 mg/dl Chemistry Test 12/18/18 00:00 12/18/18 12:10 Troponin I < 0.012 ng/ml White Blood Count 7.2 k/uL (4.5-11.0) Red Blood Count 3.64 M/uL (4.17-5.56) Hemoglobin 10.5 g/dL (12.0-16.0) Hematocrit 31.6 % (34.0-47.0) Mean Corpuscular Volume 86.8 fL (80.0-96.0) Mean Corpuscular Hemoglobin 28.9 pg (26.0-33.0) Mean Corpuscular Hemoglobin Concent 33.3 g/dL (32.0-36.0) Red Cell Distribution Width 18.7 % (11.5-14.5) Platelet Count 174 K/uL (150-450) Mean Platelet Volume 7.8 fL (7.2-11.1) Neutrophils (%) (Auto) 40.8 % (39.4-72.5) Lymphocytes (%) (Auto) 48.0 % (17.6-49.6) Monocytes (%) (Auto) 5.5 % (4.1-12.4) Eosinophils (%) (Auto) 3.7 % (0.4-6.7) Basophils (%) (Auto) 2.0 % (0.3-1.4) Nucleated RBC Relative Count (auto) 0.1 /100WBC Neutrophils # (Auto) 2.9 K/uL (2.0-7.4) Lymphocytes # (Auto) 3.4 K/uL (1.3-3.6) Monocytes # (Auto) 0.4 K/uL (0.3-1.0) Eosinophils # (Auto) 0.3 K/uL (0.0-0.5) Basophils # (Auto) 0.1 K/uL (0.0-0.1) Nucleated RBC Absolute Count (auto) 0.01 K/uL D-Dimer Quantitative (PE/DVT) 0.47 ug/ml (0-0.50) Glomerular Filtration Rate Calc > 60.0 Calcium Level 8.0 mg/dl (8.4-10.2) Magnesium Level 1.8 mg/dl (1.7-2.2) Total Bilirubin 2.3 mg/dl (0.2-1.3) Aspartate Amino Transf (AST/SGOT) 104 U/L (0-35) Alanine Aminotransferase (ALT/SGPT) 46 U/L (0-56) Alkaline Phosphatase 220 U/L (0-126) Ammonia 42 UMOL/L (9-33) B-Type Natriuretic Peptide 47 pg/ml (0-100) Total Protein 7.6 g/dl (6.3-8.2) Albumin 3.8 g/dl (3.5-5.0) Thyroid Stimulating Hormone (TSH) 0.89 uIU/ml (0.46-4.68) Salicylates Level < 10 mg/L Salicylate Last Dose Date unk Acetaminophen Level < 10 ug/ml Serum Alcohol 397 mg/dl Coagulation Test 12/18/18 12:10 D-Dimer Quantitative (PE/DVT) 0.47 ug/ml Toxicology Test 12/18/18 12:10 Salicylates Level < 10 mg/L Salicylate Last Dose Date unk Acetaminophen Level < 10 ug/ml Serum Alcohol 397 mg/dl EKG/Imaging EKG Interpretation EKG at 1210 sinus rhythm ventricular rate 90 her QTC is 504 Monitor Interpretation: Normal Sinus Rhythm ED Course/Re-evaluation Clinical Indication for ER IV: Hydration ED Course Patient was obtunded when she 1st came to the emergency room I did CT the head that was negative she's had a serial cough done here as well chest x-ray was read as negative she is very intoxicated alcohol level of 397 on room air herself oxygen saturations have been between 84 and 87% him does go over 90% with 2 L . EKG had prolonged QTC of 504 her d-dimer was negative her BNP was negative her troponin was negative n the emergency room she got a DuoNeb treatment a dose of Robitussin by mouth Pepcid 20 IV and Solu-Medrol 125 IV push, talk to hospitalist Dr. Estrada who agrees to accept her in observation status Re-evaluation PT IS INTOXICATED SATS MID 80'S. NEG CXR. NEG SOFT TISSUE NECK. WILL ADMIT OBS FOR CLOSE OBSERVATION. SHE HAS NO FAMILY OR FRIENDS TO STAY W HER TODAY . DISCUSSED WITH DR ESTRADA WILL ADMIT OBS Decision to Disposition Date: Dec 18, 2018 Decision to Disposition Time: 13:48 Depart Departure Latest Vital Signs Vital Signs Date Time Temp Pulse Resp B/P (MAP) Pulse Ox O2 Delivery O2 Flow Rate FiO2 12/18/18 13:30 87 15 100/54 (69) 12/18/18 12:30 91 12/18/18 12:27 Nasal Cannula 1.0 12/18/18 12:02 98.6 Impression: Primary Impression: Chronic alcoholic liver disease Additional Impressions: Alcohol intoxication Bronchitis Hypoxia Condition: Improved Disposition: Admitted from ER Referrals: AMIRAH RUTHERFORD DO (PCP) Problem Qualifiers KENDALL DUPONT Dec 18, 2018 11:58
[2018-12-18] MEDS ORDERED: ALBUTEROL/IPRATROPIUM 3 ML NEB NEB ONE (12:00)
[2018-12-18] MEDS ORDERED: THIAMINE HCL(*) 200 MG/2 ML IN 100 MG, FOLIC ACID(*) 50 MG/10 ML INJ 1 MG, MULTIVITAMIN... IV ONE (12:00)
[2018-12-18] MEDS ORDERED: FAMOTIDINE(*) 20MG/50ML PREMIX 50 ML IVPB ONE (12:10)
[2018-12-18 12:28] LABS: PLATELET COUNT, AUTOMATED 174 K/uL (150-450)
--- NOTE | 2018-12-18 12:31 | EKG ---
FACILITY: [facility] PATIENT NAME: QUITA MCLAUGHLIN : [id number] MR: [id number] V: [id number] EXAM DATE: ORDERING PHYSICIAN: KENDALL DUPONT TECHNOLOGIST: KIMMIE Test Reason : CP Blood Pressure : / mmHG Vent. Rate : 090 BPM Atrial Rate : 090 BPM P-R Int : 174 ms QRS Dur : 084 ms QT Int : 412 ms P-R-T Axes : 040 -09 055 degrees QTc Int : 504 ms Sinus rhythm Borderline left axis Decreased R wave progression anteriorly Prolonged QT Abnormal ECG Confirmed by MOOSE LAZAR ([id number]) on 12/18/2018 4:18:40 PM Referred By: CRESENCIO Confirmed By:MOOSE LAZAR
[2018-12-18] MEDS ORDERED: GUAIFENESIN/DEXTROMETHORPHAN 5 ML PO ONE (12:40)
--- NOTE | 2018-12-18 12:54 | RADIOLOGY IMAGING REPORT ---
FACILITY: [facility] [place] PATIENT NAME: Awa Grace : 1970 MR: [id number] V: [id number] EXAM DATE: ORDERING PHYSICIAN: KENDALL DUPONT TECHNOLOGIST: Location: [facility] Patient: Awa Grace : 1970 Visit/Account:[id number] Date of Sevice: 12/18/2018 Technique: CHEST SINGLE AP HISTORY: cough Comparison studies: September 07, 2017 FINDINGS: No acute airspace consolidation. No pleural effusion. Cardiac silhouette is unchanged. O ld right-sided rib fractures noted. IMPRESSION: 1. No acute cardiopulmonary process. Report Dictated By: Elmer Mcfarlane DO at 12/18/2018 12:46 PM Report E-Signed By: Elmer Mcfarlane DO at 12/18/2018 12:47 PM WSN:[id number]
--- NOTE | 2018-12-18 13:36 | RADIOLOGY IMAGING REPORT ---
FACILITY: [facility] [place] [place] PATIENT NAME: Awa Grace : 1970 MR: [id number] V: [id number] EXAM DATE: ORDERING PHYSICIAN: KENDALL DUPONT TECHNOLOGIST: Location: [facility] Patient: Awa Grace : 1970 Visit/Account:[id number] Date of Sevice: 12/18/2018 Study: CT scan of the brain without intravenous contrast. Indication: Headache Comparison study: September 06, 2017 Technique: Multiple axial images were obtained through the brain without the use of intravenous contr ast. One of the following dose optimization techniques was utilized in the performance of this exam: Autom ated exposure control; adjustment of the mA and/or kV according to the patient's size; or use of an i terative reconstruction technique. Specific details can be referenced in the facility's radiology C T exam operational policy. The examination demonstrates no evidence of acute intracranial hemorrhage. There is no evidence of ex tra-axial collection or hydrocephalus. There is no abnormal density identified within the brain parenchyma. There is no evidence of disruption of the peripheral grant-white junction. The bony structures are unremarkable. IMPRESSION:Unremarkable CT scan of the brain without contrast. Report Dictated By: Pierce Lamar at 12/18/2018 1:27 PM Report E-Signed By: Pierce Lamar at 12/18/2018 1:30 PM WSN:[id number]
[2018-12-18] MEDS ORDERED: methylPREDNIS SUCC 125 MG/2ML IVP ONE (13:45)
[2018-12-18] MEDS ORDERED: LORazepam 2 MG/ML VIAL IVP ONE (14:00)
--- NOTE | 2018-12-18 14:54 | RADIOLOGY IMAGING REPORT ---
FACILITY: [facility] [place] PATIENT NAME: Awa Grace : 1970 MR: [id number] V: [id number] EXAM DATE: ORDERING PHYSICIAN: KENDALL DUPONT TECHNOLOGIST: Location: [facility] [place] Patient: Awa Grace : 1970 Visit/Account:[id number] Date of Sevice: 12/18/2018 Neck soft tissues Indication: Cough, patient intoxicated Comparison: None available Findings: The prevertebral soft tissues are within normal limits. The epiglottis appears unremarkabl e. The visualized nasal, oral, and hypopharyngeal airways appear patent. Degenerative changes are n oted within the cervical spine. IMPRESSION: No focal abnormality of the visualized neck soft tissues. Report Dictated By: Elmer Mcfarlane DO at 12/18/2018 2:43 PM Report E-Signed By: Elmer Mcfarlane DO at 12/18/2018 2:46 PM WSN:[id number]
[2018-12-18 15:10] VITALS: BP 99/66
--- NOTE | 2018-12-18 15:44 | History & Physical ---
History of Present Illness Chief Complaint alcohol intoxication, cough History of Present Illness 48 year old female h/o alcoholism. drinks vodka. cough x 1 month. brought to er by private vehicle by her neighbor her travels for work and is currently in [place]. She states, "I want to go home". She denies wanting help with detox. She was recommended for admission secondary to hypoxia and alcohol ingestion. History Problems: (1) Chronic alcoholic liver disease Status: Chronic (2) PUD (peptic ulcer disease) Status: Chronic (3) Ascites due to alcoholic cirrhosis Status: Chronic Home Meds Active Scripts Furosemide (FUROSEMIDE) 20 Mg Tablet, 20 MG PO QDAY, #30 TAB 1 Refill Prov:MOOSE LAZAR MD 07/25/17 Reported Medications Fluoxetine Hcl (PROZAC) 20 Mg Capsule, 20 MG PO QDAY, CAPSULE 06/29/18 Vitamin B Complex (VITAMIN B COMPLEX) 1 Each Capsule, 1 EACH PO DAILY, CAPSULE 06/28/18 Thiamine Hcl (THIAMINE HCL) Unknown Strength Powder, MC 06/28/18 Sucralfate (SUCRALFATE) 1 Gm Tablet, 1 GM PO Q6H 06/28/18 Spironolactone (SPIRONOLACTONE) 25 Mg Tablet, 25 MG PO DAILY, TAB 06/28/18 Pantoprazole Sodium (PANTOPRAZOLE SODIUM) 40 Mg Tablet.dr, 40 MG PO BID, TAB.SR 06/28/18 Ondansetron Hcl (ONDANSETRON HCL) 4 Mg Tablet, 4 MG PO Q6H, TAB 06/28/18 Milk Thistle Seed Extract (MILK THISTLE) Unknown Strength Capsule, PO, CAPSULE 06/28/18 Hydrocodone Bit/Acetaminophen (HYDROCODON-ACETAMINOPHEN 5-325) 1 Each Tablet, 1 EACH PO Q6H, TAB 06/28/18 Allergies: Coded Allergies: No Known Drug Allergies (Verified , 01/13/18) Patient History: Patient reports no known family medical history. Hx Smoking: No Smoking Status: Never Smoker Caffeine Intake: Coffee Caffeine/Cups Per Day: 1 CUP PER DAY Hx Alcohol Use: No Hx Substance Use Disorder: No Social Drug Use: Never Review of Systems Psychiatric: Other (intoxicated) Exam Vital Signs Vital Signs Date Time Temp Pulse Resp B/P (MAP) Pulse Ox O2 Delivery O2 Flow Rate FiO2 12/18/18 15:10 98.1 81 20 99/66 (99) 96 Nasal Cannula 2.0 General Appearance: Other (alcohol intoxication, unable to state her current location) Cardiovascular: Regular Rate and Rhythm Respiratory: No Respiratory Distress, Clear to Auscultation, Other (dry cough present upon exam, no sputum production) GI: Other (abdomen distended, painful upon palpation, soft ) Extremities: Warm, Perfused, Edema (non pitting edema present bilaterally to lower extremities) Medical Decision Making Data Points Result Diagram: 12/18/18 1210 12/18/18 1210 Item Value Date Time Ammonia 42 UMOL/L H 12/18/18 1210 B-Type Natriuretic Peptide 47 pg/ml 12/18/18 1210 Serum Alcohol 397 mg/dl *H 12/18/180 EKG / Imaging EKG Interpretation EKG reviewed from ER Imaging PATIENT NAME: Awa Grace : 1970 MR: [id number] V: [id number] EXAM DATE: ORDERING PHYSICIAN: KENDALL DUPONT TECHNOLOGIST: Location: [facility] [place] Patient: Awa Grace : 1970 Visit/Account:[id number] Date of Sevice: 12/18/2018 Technique: CHEST SINGLE AP HISTORY: cough Comparison studies: September 07, 2017 FINDINGS: No acute airspace consolidation. No pleural effusion. Cardiac silhouette is unchanged. Old right-sided rib fractures noted. IMPRESSION: 1. No acute cardiopulmonary process. Report Dictated By: Elmer Mcfarlane DO at 12/18/2018 12:46 PM Report E-Signed By: Elmer Mcfarlane DO at 12/18/2018 12:47 PM PATIENT NAME: Awa Grace : 1970 MR: [id number] V: [id number] EXAM DATE: ORDERING PHYSICIAN: KENDALL DUPONT TECHNOLOGIST: Location: [facility] [place] Patient: Awa Grace : 1970 Visit/Account:[id number] Date of Sevice: 12/18/2018 Study: CT scan of the brain without intravenous contrast. Indication: Headache Comparison study: September 06, 2017 Technique: Multiple axial images were obtained through the brain without the use of intravenous contrast. One of the following dose optimization techniques was utilized in the pe rformance of this exam: Automated exposure control; adjustment of the mA and/or kV according to the patient's size; or use of an iterative reconstruction technique. Specific details can be referenced in the facility's radiology CT exam operational policy. The examination demonstrates no evidence of acute intracranial hemorrhage. There is no evidence of extra-axial collection or hydrocephalus. There is no abnormal density identified within the brain parenchyma. There is no evidence of disruption of the peripheral grnat-white junction. The bony structures are unremarkable. IMPRESSION:Unremarkable CT scan of the brain without contrast. Report Dictated By: Pierce Lamar at 12/18/2018 1:27 PM Report E-Signed By: Pierce Lamar at 12/18/2018 1:30 PM PATIENT NAME: Awa Grace : 1970 MR: [id number] V: [id number] EXAM DATE: [id number] ORDERING PHYSICIAN: KENDALL DUPONT TECHNOLOGIST: Location: [facility] [place] Patient: Awa Grace : 1970 Visit/Account:[id number] Date of Sevice: 12/18/2018 Neck soft tissues Indication: Cough, patient intoxicated Comparison: None available Findings: The prevertebral soft tissues are within normal limits. The epiglottis appears unremarkable. The visualized nasal, oral, and hypopharyngeal airways appear patent. Degenerative changes are noted within the cervical spine. IMPRESSION: No focal abnormality of the visualized neck soft tissues. Report Dictated By: lEmer Mcfarlane DO at 12/18/2018 2:43 PM Report E-Signed By: Elmer Mcfarlane DO at 12/18/2018 2:46 PM Assessment and Plan Problems: (1) Alcohol intoxication Status: Acute Assessment & Plan: She will be placed on CIWA, Telemetry and Seizures precautions. She will receive Valium if needed for withdraw. (2) Bronchitis Status: Acute Assessment & Plan: She has a cough present upon admission, which has been there for one month. She is requiring 2L of oxygen. She has received IV steroids in ER, but is not wheezing presently, so will not continue. (3) PUD (peptic ulcer disease) Status: Chronic Assessment & Plan: Continue chronic Protonix and Carafate. (4) Chronic alcoholic liver disease Status: Chronic Assessment & Plan: She does have ascites present. She does take Spironolactone and Lasix to help. These have been held at this time. (5) Depression Status: Chronic Assessment & Plan: Continue chronic Fluoxetine. Venous Thromboembolism Antithrombotics Is Pt On Any Antithrombotics?: Yes Exam Sepsis Risk: No Definite Risk IRAM GLORIA STEEL MELTER Dec 18, 2018 15:44
[2018-12-18] MEDS: SUCRALFATE 1 GM TAB PO SCH ×2 (16:00→21:16)
[2018-12-18] MEDS ORDERED: BENZONATATE 100 MG CAP PO PRN (16:00)
[2018-12-18] MEDS ORDERED: FLUO40CA76 PO (17:00)
[2018-12-18] MEDS ORDERED: TRAM-420 PO (17:00)
[2018-12-18] MEDS ORDERED: HYDR-4228 PO (17:00)
[2018-12-18] MEDS ORDERED: POTA10CA40 PO (17:00)
[2018-12-18 19:35] VITALS: BP 105/75
[2018-12-18] MEDS: PANTOPRAZOLE SOD 40 MG TABEC PO SCH (21:15)
[2018-12-18 23:40] VITALS: BP 116/63
[2018-12-19] VITALS (11 sets, daily range): BP systolic 115–134; BP diastolic 54–88
[2018-12-19] MEDS: SUCRALFATE 1 GM TAB PO SCH ×4 (06:19→21:05)
[2018-12-19] MEDS: ENOXAPARIN 40 MG/0.4ML SYR SC SCH (08:23)
[2018-12-19] MEDS: PANTOPRAZOLE SOD 40 MG TABEC PO SCH ×2 (08:23→21:05)
[2018-12-19] MEDS: FLUoxetine HCL 20 MG CAP PO SCH (08:23)
[2018-12-19] MEDS ORDERED: FLUoxetine HCL 20 MG CAP PO SCH (09:00)
[2018-12-19] MEDS: DIAZEPAM 10 MG TAB PO PRN ×10 (09:52→21:15)
--- NOTE | 2018-12-19 11:46 | Hospitalist Progress Note ---
Subjective Progress Notes Subjective She was admitted with alcohol intoxication. She is actively withdrawing from alcohol this morning. She does now report she would like help detoxing from alcohol. She reports improvement in her cough. Patient Complains of: Cardiovascular: No: Chest Pain Respiratory: No: Shortness of Breath Physical Exam Vital Signs Date Time Temp Pulse Resp B/P (MAP) Pulse Ox O2 Delivery O2 Flow Rate FiO2 12/19/18 07:52 94 12/19/18 07:37 Nasal Cannula 1.0 12/19/18 07:10 98.3 75 16 116/65 (82) Intake and Output 12/19/18 01:01 Intake Total 1050 ml Balance 1050 ml IV Total 1050 ml # Voids 5 General Appearance: Alert, Awake, No Acute Distress, Afebrile Neuro: No Gross deficits Cardiovascular: Regular Rate and Rhythm Respiratory: No Respiratory Distress, Clear to Auscultation GI: Soft and Non-Tender Psych: Alert & Oriented X3, Appropriate Mood & Affect Result Diagram: 12/18/18 1210 12/18/18 1210 Monitor Interpretation: Normal Sinus Rhythm Assessment and Plan Problems: (1) Alcohol intoxication Status: Acute Assessment & Plan: She is now withdrawing from alcohol. She did require Valium this morning. She was placed on CIWA, Telemetry and Seizures precautions. She will receive Valium as needed for withdraw. (2) Bronchitis Status: Acute Assessment & Plan: She had a cough present upon admission, which has been there for one month. She was requiring 2L of oxygen, but is now maintaining room air saturations. She has received IV steroids in ER, but is not wheezing presently, so will not continue. (3) PUD (peptic ulcer disease) Status: Chronic Assessment & Plan: Continue chronic Protonix and Carafate. (4) Chronic alcoholic liver disease Status: Chronic Assessment & Plan: She does have ascites present. She does take Spironolactone and Lasix to help. These have been held at this time. (5) Depression Status: Chronic Assessment & Plan: Continue chronic Fluoxetine. Exam Sepsis Risk: No Definite Risk IRAM GLORIA [facility] Dec 19, 2018 11:46
[2018-12-20 00:03] VITALS: BP 129/70
[2018-12-20] MEDS: DIAZEPAM 10 MG TAB PO PRN ×4 (00:11→12:37)
[2018-12-20 02:08] VITALS: BP 121/66
[2018-12-20 04:06] VITALS: BP 136/68
[2018-12-20 06:05] VITALS: BP 129/76
[2018-12-20] MEDS: SUCRALFATE 1 GM TAB PO SCH ×3 (06:13→16:21)
[2018-12-20] MEDS: ENOXAPARIN 40 MG/0.4ML SYR SC SCH (09:58)
[2018-12-20] MEDS: FLUoxetine HCL 20 MG CAP PO SCH (09:58)
[2018-12-20] MEDS: PANTOPRAZOLE SOD 40 MG TABEC PO SCH (09:58)
[2018-12-20 10:10] VITALS: BP 124/69
[2018-12-20] MEDS ORDERED: IBUPROFEN 600 MG TAB PO PRN (11:20)
[2018-12-20 11:29] LABS: PLATELET COUNT, AUTOMATED 108 K/uL (150-450)
[2018-12-20 11:30] VITALS: BP 130/67
--- NOTE | 2018-12-20 11:55 | Hospitalist Depart ---
Discharge Summary Reason for Hosp/Final Diag: (1) Alcohol intoxication Status: Acute Hospital Course & Plan: She is now withdrawing from alcohol. She is still requiring Valium this morning. She was placed on CIWA, Telemetry and Seizures precautions. She will receive Valium as needed for withdraw. She will transfer to [facility] unit for further alcohol detox. Her and her family have requested transfer and would like to consider inpatient alcohol program. (2) Bronchitis Status: Acute Hospital Course & Plan: She had a cough present upon admission, which has been there for one month. She was requiring 2L of oxygen, but is now maintaining room air saturations. This was likely related to the blood alcohol level. She received IV steroids in ER, but was not wheezing, so will not continue. Her cough has resolved. (3) PUD (peptic ulcer disease) Status: Chronic Hospital Course & Plan: Continue chronic Protonix and Carafate. Had GI Bleed one year ago per patient. (4) Chronic alcoholic liver disease Status: Chronic Hospital Course & Plan: She reports a history of ascites. She does take Spironolactone and Lasix to help. These have been held at this time. Abdomen is soft, blood pressures have been decreased. (5) Depression Status: Chronic Hospital Course & Plan: Continue chronic Fluoxetine. Departure Latest Vital Signs Vital Signs 12/19/18 12/20/18 07:37 11:30 Temp 98.1 Pulse 80 Resp 24 B/P (MAP) 130/67 (88) Pulse Ox 94 O2 Delivery Room Air O2 Flow Rate 1.0 Weight (Pounds): 155 Weight (Ounces): 2.0 Result Diagram: 12/20/18 1122 12/18/18 1210 Condition: Improved Discharge: [facility] Discharge Instructions Home Meds Active Scripts Furosemide (FUROSEMIDE) 20 Mg Tablet, 20 MG PO QDAY, #30 TAB 1 Refill Prov:MOOSE LAZAR MD 07/25/17 Reported Medications Tramadol Hcl (TRAMADOL HCL) 50 Mg Tablet, 50 MG PO QDAY PRN for PAIN, TAB 12/18/18 Fluoxetine Hcl (PROZAC) 40 Mg Capsule, 40 MG PO QDAY, CAPSULE 12/18/18 Potassium Chloride (POTASSIUM CHLORIDE) 10 Meq Capsule.er, 10 MEQ PO BID 12/18/18 Hydroxyzine Hcl (HYDROXYZINE HCL) 50 Mg Tablet, 2 TAB PO HS 12/18/18 Spironolactone (SPIRONOLACTONE) 25 Mg Tablet, 25 MG PO DAILY, TAB 06/28/18 Discontinued Reported Medications Fluoxetine Hcl (PROZAC) 20 Mg Capsule, 20 MG PO QDAY, CAPSULE 06/29/18 Vitamin B Complex (VITAMIN B COMPLEX) 1 Each Capsule, 1 EACH PO DAILY, CAPSULE 06/28/18 Thiamine Hcl (THIAMINE HCL) Unknown Strength Powder, MC 06/28/18 Sucralfate (SUCRALFATE) 1 Gm Tablet, 1 GM PO Q6H 06/28/18 Pantoprazole Sodium (PANTOPRAZOLE SODIUM) 40 Mg Tablet.dr, 40 MG PO BID, TAB.SR 06/28/18 Ondansetron Hcl (ONDANSETRON HCL) 4 Mg Tablet, 4 MG PO Q6H, TAB 06/28/18 Milk Thistle Seed Extract (MILK THISTLE) Unknown Strength Capsule, PO, CAPSULE 06/28/18 Hydrocodone Bit/Acetaminophen (HYDROCODON-ACETAMINOPHEN 5-325) 1 Each Tablet, 1 EACH PO Q6H, TAB 06/28/18 Diet: Regular Activity: As Tolerated Copies to: AMIRAH RUTHERFORD DO ; Venous Thromboembolism Antithrombotics Is Pt On Any Antithrombotics?: Yes IRAM GLORIA RN [facility] Dec 20, 2018 11:55
[2018-12-22] MEDS ORDERED: INFLUENZA VIRUS VAC 0.5ML SYR IM ONLY ONE (09:00)
== END 2018-12-20 16:48 | DRG 897 ==
LOC: ER 11:58 → OBSVTOIN 14:03 → MED 14:03
PROVIDERS: ADMIT Internal Medicine; ATTEND Internal Medicine
PROC: HZ2ZZZZ Detoxification Services for Substance Abuse Treatment (ICD-10-PCS; principal; 2018-12-18)
DX: F10.229 Alcohol dependence with intoxication, unspecified (principal); F10.239 Alcohol dependence with withdrawal, unspecified; F32.9 Major depressive disorder, single episode, unspecified; K21.9 Gastro-esophageal reflux disease without esophagitis; I10 Essential (primary) hypertension; K27.7 Chronic peptic ulcer, site unspecified, without hemorrhage or perforation; K70.31 Alcoholic cirrhosis of liver with ascites; J20.9 Acute bronchitis, unspecified; R09.02 Hypoxemia; Z79.899 Other long term (current) drug therapy; Y90.8 Blood alcohol level of 240 mg/100 ml or more
CPT/HCPCS: 36415; 70360; 70450; 71045; 80305; 80320; 80329; 81001; 82040; 82140; 82247; 82310; 82374; 82435; 82565; 82947; 83735; 83880; 84075; 84132; 84155; 84295; 84443; 84450; 84460; 84484; 84520; 85025; 85379; 93005; 94640; 96365; 96366; 96375; 99284; J1650; J2060; J2930; J3411; J3475; J7030

== ENCOUNTER 2018-12-20 16:42 | Inpatient (IN) | payer BC ==
[2017-07-23 11:48] VITALS: BMI 22.0
[~2018-12-20 16:42] MED LIST changes: +FLUO40CA76 PO; +HYDR-4228 PO; +POTA10CA40 PO
[2018-12-20] MEDS ORDERED: MAG HYD/AL HYD/SIMETH 30ML UDC PO PRN (17:30)
[2018-12-20 18:51] VITALS: BP 110/62
[2018-12-20] MEDS ORDERED: BENZONATATE 100 MG CAP PO PRN (19:45)
[2018-12-20 21:40] VITALS: BP 128/58
[2018-12-20] MEDS: SUCRALFATE 1 GM TAB PO SCH (22:01)
[2018-12-20] MEDS: PANTOPRAZOLE SOD 40 MG TABEC PO SCH (22:02)
[2018-12-20] MEDS: LORazepam 1 MG TAB PO PRN ×2 (22:02→22:03)
[2018-12-21 01:30] VITALS: BP 115/66
[2018-12-21 04:30] VITALS: BP 122/72
[2018-12-21] MEDS: LORazepam 1 MG TAB PO PRN ×3 (04:51→20:51)
[2018-12-21] MEDS: SUCRALFATE 1 GM TAB PO SCH ×4 (05:58→20:51)
[2018-12-21 06:35] LABS: PLATELET COUNT, AUTOMATED 98 K/uL (150-450)
[2018-12-21 07:40] VITALS: BP 130/78
[2018-12-21] MEDS: SPIRONOLACTONE 25 MG TAB PO SCH (08:06)
[2018-12-21] MEDS: POTASSIUM CHL 10 MEQ TABCR PO SCH ×2 (08:06→16:40)
[2018-12-21] MEDS: FOLIC ACID 1 MG TAB PO SCH (08:06)
[2018-12-21] MEDS: FLUoxetine HCL 20 MG CAP PO SCH (08:07)
[2018-12-21] MEDS: FUROSEMIDE 20 MG TAB PO SCH (08:07)
[2018-12-21] MEDS: PANTOPRAZOLE SOD 40 MG TABEC PO SCH ×2 (08:07→20:51)
[2018-12-21] MEDS: THIAMINE HCL 100 MG TAB PO SCH (08:07)
[2018-12-21] MEDS: MULTIVITAMINS PO SCH (08:07)
[2018-12-21] MEDS: LACTULOSE 10 GM/15 ML UDCUP PO SCH ×3 (10:13→20:51)
[2018-12-21 11:45] VITALS: BP 122/72
--- NOTE | 2018-12-21 14:05 | SCHAAF H&P ---
DATE OF ADMISSION: December 20, 2018 ATTENDING PHYSICIAN Eric Wright MD Patient was seen at approximately 1000 hours in the a.m. of December 21, 2018 for note concerning this dictation. PRESENTING PROBLEM, CHIEF COMPLAINT Transfer from medical floor to continue alcohol detoxification, treatment of alcohol withdrawal on the Psychiatric Unit as well as plan for potential discharge into residential rehab. HISTORY OF PRESENT ILLNESS This is 48-year-old female who was first admitted to the medical floor following on December 18, 2018 in a state of hypoxia and extreme alcohol intoxication on top of chronic alcoholic liver disease. Patient was admitted without incident. Treatment was given for alcohol withdrawal there. Patient was slowly improving. Hypoxia resolved and patient eventually was transferred to Behavioral Health to continue withdrawal management and potentially look into entrance into rehab, which the patient desires as well as patient's family members. During initial interview, patient is difficult to interview, in a state of confusion. Notable ammonia levels rising slightly to 52 during day of this interview and alcohol withdrawal nearing completion. We will continue to evaluate. I did talk to patient's . 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 Patient's states that she has long battled alcoholism with significant relapses. He is well aware of her chronic cirrhotic hepatic state and that he wishes she would quit drinking. Patient's gives an indication that the patient tends to binge heavily for a week at a time and then has periods of sobriety. Patient unable to give any other symptoms of psychiatric concern. MENTAL HEALTH HISTORY Patient apparently has been in rehab x2 in [facility] in [place], [place] for around 30 days each. reported brief periods of sobriety after discharges from these programs. She has been to AA in the past. FAMILY PSYCHIATRIC HISTORY Unknown at this time. PAST MEDICAL HISTORY Significant for the effects of chronic alcoholism, resulting in cirrhotic condition of the liver and currently elevated ammonia level. We will continue to look into prior history as well. SOCIAL HISTORY Currently, little is known of full social history. 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 SUBSTANCE ABUSE HISTORY Does not appear to be significant for any substances other than alcohol, which has been a struggle for many years for this patient. PHYSICAL EXAMINATION Please see emergency room note, medical floor notes. Patient unable to walk unassisted at this time. Jaundice present. Vital signs at the time of admission to [facility] showed temperature 98.2, pulse 68, respiratory rate 14], blood pressure 128/58 and pulse oximetry 90% on room air. LABORATORY DATA Most recent laboratory data on December 21, 2018: CBC notable for RBCs low at 3.27, hemoglobin and hematocrit low at 9.4 and 28.1, platelet count low at 98. Chemistry panel notable for total bilirubin elevated at 3.6, AST of 84 with ammonia level rising slowly and at 57. For other laboratory data, please see emergency room and medical floor notes. MENTAL STATUS EXAMINATION GENERAL APPEARANCE, BEHAVIOR AND ATTITUDE: This is a psychomotor retarded 48- year old female who appears well-groomed. Notable jaundice and icterus noted. Patient cooperative, very quiet. SPEECH: Slowed and quiet. MOOD: Unable to fully access. AFFECT: Neutral. THOUGHT PROCESSES: No gross flight of ideas or loose associations. Patient fairly logical. THOUGHT CONTENT: Free of auditory or visual hallucinations, ideas of reference, thought broadcastings, delusions, obsessions or compulsions. The patient is not having any suicidal or homicidal ideations. SENSORIUM: Clouded. COGNITION: Alert and oriented to person, place, partially to time and situation. MEMORY: Immediate, recent and remote historically estimated as intact as patient was functioning well according to her as recently as two weeks ago. INTELLIGENCE: Average, based on interview. INSIGHT AND JUDGMENT: Currently impaired due to chronic alcoholism, its effects on hepatic structure and resultant elevations in ammonia and ongoing hahn with chronic alcoholism. ASSESSMENT This is a very ill 48-year-old female who suffers from chronic alcoholism. At this time, we will treat alcohol withdrawal to completion and we will start lactulose today to bring ammonia levels down. We will continue to work with patient. We will have meeting with family to discuss possible options for entrance into rehab should patient's physical condition improve. DIAGNOSES (Per DSM-5) 1. Alcohol withdrawal. 2. Alcohol use disorder, severe. 3. Social and medical consequences related to severe chronic alcohol use. 4. Supportive relationship with family members. PLAN 1. Admit to the unit. 2. Necessary precautions will be implemented. 3. The patient will participate in individual and group therapy. 4. Medications will be administered and titrated accordingly. We will treat alcohol withdrawal on the Behavioral Health Unit with Ativan to avoid further impairment of hepatic functioning. We will start lactulose to lower ammonia levels. 5. Collateral information to be obtained as necessary. 6. Estimated length of stay at this time 5 to 7 days. MTDD
[2018-12-21 16:00] VITALS: BP 126/65
[2018-12-21 20:50] VITALS: BP 122/70
[2018-12-22] MEDS: SUCRALFATE 1 GM TAB PO SCH ×4 (05:46→21:14)
[2018-12-22 06:04] LABS: PLATELET COUNT, AUTOMATED 105 K/uL (150-450)
[2018-12-22 06:25] VITALS: BP 117/68
[2018-12-22 09:55] VITALS: BP 128/68
[2018-12-22] MEDS: LACTULOSE 10 GM/15 ML UDCUP PO SCH ×3 (10:02→21:13)
[2018-12-22] MEDS: IBUPROFEN 600 MG TAB PO PRN (10:02)
[2018-12-22] MEDS: POTASSIUM CHL 10 MEQ TABCR PO SCH ×2 (10:02→16:42)
[2018-12-22] MEDS: FOLIC ACID 1 MG TAB PO SCH (10:02)
[2018-12-22] MEDS: FLUoxetine HCL 20 MG CAP PO SCH (10:02)
[2018-12-22] MEDS: SPIRONOLACTONE 25 MG TAB PO SCH (10:02)
[2018-12-22] MEDS: PANTOPRAZOLE SOD 40 MG TABEC PO SCH ×2 (10:02→21:13)
[2018-12-22] MEDS: FUROSEMIDE 20 MG TAB PO SCH (10:02)
[2018-12-22] MEDS: THIAMINE HCL 100 MG TAB PO SCH (10:02)
[2018-12-22] MEDS: MULTIVITAMINS PO SCH (10:02)
--- NOTE | 2018-12-22 10:57 | BHS Progress Note ---
[facility] - Subjective Progress Notes Subjective Patient improving in terms of cognition and ability to ambulate today, as compared to yesterday, able to make good eye contact, ambulating with walker. Indicating a desire to enter rehab and abstain from alcohol in the future. NH4 level trending down remains elevated. Appetite good. sleep good, alcohol withdrawal complete. Suicidal Ideation: None Homicidal Ideation: None [facility] - Objective Physical Exam Vital Signs Vital Signs Date Time Temp Pulse Resp B/P (MAP) Pulse Ox O2 Delivery O2 Flow Rate FiO2 12/22/18 06:25 98.2 73 117/68 (84) 92 Room Air 12/21/18 16:00 14 12/21/18 04:30 2.0 Muscle Strength and Tone: Other (limited) Gait and Station: Unsteady [facility] Medications Reviewed: Side Effects, Benefits of Medication, Risks Allergies Reviewed: Yes Mental Status Exam General Appearance: Well Groomed, Good Eye Contact, Cooperative, Polite, Good Interaction, Psychomotor Retardation; No Bizarre Mannerisms, No Tics Speech: Normal Volume, Normal Tone, Delayed Mood: Dysthmic/Depressed Affect: Calm, Flat, Withdrawn Thought Process: Logical, Goal Directed; No Loose Associations, No Flight of Ideas Thought Content: No Suicidal Ideation, No Homicidal Ideation, No Delusions, No Auditory Halllucinations, No Visual Hallucinations, No Thought Broadcasting, No Ideas of Reference, No Obsessions, No Compulsions Sensorium: Other (clouded) Cognition: Alert & Oriented-Person, Alert & Oriented-Place; No Alert & Oriented-Time (partially); Gfphx-Kepwlrra-Sdubrlsoj (partially) Memory: Immediate, Recent, Remote Intelligence: Average Insight Judgment: Fair (improving) Result Diagram: 12/22/18 0542 12/22/18 0542 [facility] Assessment and Plan Rlwc-ou-Lfvo Encounter Date: Dec 22, 2018 Unqv-te-Bars Encounter Time: 10:00 [facility] Plan: Necessary Precautions, Individual/Group Therapy, Admin/Titrate Meds, Educate Patient Tobacco Medications: Not Appropriate Condition Multpiple Antipsychotics Used: No Problems: (1) Alcohol use disorder, severe, in controlled environment Status: Chronic (2) Alcohol withdrawal Status: Acute Condition 1. continue lactulose, monitor labs. 2. look into residential program. JANNETTE FLORES MD Dec 22, 2018 10:57
[2018-12-22 14:00] VITALS: BP 126/76
[2018-12-22] MEDS ORDERED: LORazepam 0.5 MG TAB PO ONE (14:20)
[2018-12-22 18:25] VITALS: BP 124/78
[2018-12-22] MEDS: LORazepam 1 MG TAB PO PRN (22:05)
[2018-12-22 22:24] VITALS: BP 116/63
[2018-12-23 05:51] VITALS: BP 114/60
[2018-12-23] MEDS: SUCRALFATE 1 GM TAB PO SCH ×4 (05:55→21:07)
[2018-12-23 06:12] LABS: PLATELET COUNT, AUTOMATED 99 K/uL (150-450)
[2018-12-23] MEDS: MULTIVITAMINS PO SCH (08:36)
[2018-12-23] MEDS: PANTOPRAZOLE SOD 40 MG TABEC PO SCH ×2 (08:36→20:17)
[2018-12-23] MEDS: FLUoxetine HCL 20 MG CAP PO SCH (08:36)
[2018-12-23] MEDS: POTASSIUM CHL 10 MEQ TABCR PO SCH ×2 (08:36→16:55)
[2018-12-23] MEDS: THIAMINE HCL 100 MG TAB PO SCH (08:36)
[2018-12-23] MEDS: FOLIC ACID 1 MG TAB PO SCH (08:36)
[2018-12-23] MEDS: FUROSEMIDE 20 MG TAB PO SCH (08:36)
[2018-12-23] MEDS: SPIRONOLACTONE 25 MG TAB PO SCH (08:36)
[2018-12-23] MEDS: IBUPROFEN 600 MG TAB PO PRN (08:40)
[2018-12-23] MEDS: LACTULOSE 10 GM/15 ML UDCUP PO SCH ×3 (09:00→21:07)
--- NOTE | 2018-12-23 10:10 | BHS Progress Note ---
[facility] - Subjective Progress Notes Subjective "I don't want to be gone for so long. I just want to go home." Client is seen in team meeting with her on the speaker phone to provide support and collateral information. She denies hallucinations, denies suicidal thoughts. She walked to the treatment team room utilizing a walker and standby assist. Gait is slow and unsteady. Discharge planning was discussed with patient and including residential treatment. Suicidal Ideation: None Homicidal Ideation: None [facility] - Objective Physical Exam Vital Signs Vital Signs 12/21/18 12/22/18 12/23/18 04:30 18:25 05:51 Temp 98.1 Pulse 69 Resp 16 B/P (MAP) 114/60 (78) Pulse Ox 90 O2 Delivery Room Air O2 Flow Rate 2.0 Muscle Strength and Tone: Other (limited) Gait and Station: Unsteady [facility] Medications Reviewed: Side Effects, Benefits of Medication, Risks Allergies Reviewed: Yes Mental Status Exam General Appearance: Good Eye Contact, Cooperative, Polite, Good Interaction, Psychomotor Retardation; No Bizarre Mannerisms, No Tics Speech: Normal Tone, Delayed Mood: Dysthmic/Depressed Affect: Calm, Flat, Withdrawn Thought Process: Logical, Goal Directed; No Loose Associations, No Flight of Ideas Thought Content: No Suicidal Ideation, No Homicidal Ideation, No Delusions, No Auditory Halllucinations, No Visual Hallucinations, No Thought Broadcasting, No Ideas of Reference, No Obsessions, No Compulsions Sensorium: Other (clouded) Cognition: Alert & Oriented-Person, Alert & Oriented-Place; No Alert & Oriented-Time (partially); Awofi-Pvdyhoup-Tlvtnhlto (partially) Memory: Immediate, Recent, Remote Intelligence: Average Insight Judgment: Fair (improving) Result Diagram: 12/23/1855 12/23/18 0555 [facility] Assessment and Plan Vkwh-ru-Piru Encounter Date: Dec 23, 2018 Hrml-lb-Jpbv Encounter Time: 09:00 [facility] Plan: Necessary Precautions, Individual/Group Therapy, Admin/Titrate Meds, Educate Patient Tobacco Medications: Not Appropriate Condition Multpiple Antipsychotics Used: No Problems: (1) Alcohol abuse Status: Chronic Condition Alcohol withdrawal appears complete. VS WNL. She was up today walking utilizing walker with standby assist. She denies SI or hallucinations. Client's is supportive and encouraging her to go to residential treatment. We are continuing discharge planning with recommendations for residential substance abuse treatment. ARMANDO MORATAYA NP Dec 23, 2018 10:10
[2018-12-23] MEDS: hydrOXYzine PAMOATE 25 MG CAP PO PRN (11:21)
[2018-12-23 11:36] VITALS: BP 112/54
[2018-12-23 20:26] VITALS: BP 103/65
[2018-12-24 05:13] VITALS: BP 118/66
[2018-12-24] MEDS: SUCRALFATE 1 GM TAB PO SCH ×4 (06:03→21:19)
[2018-12-24] MEDS: LACTULOSE 10 GM/15 ML UDCUP PO SCH ×3 (08:19→21:19)
[2018-12-24] MEDS: POTASSIUM CHL 10 MEQ TABCR PO SCH ×2 (08:20→17:12)
[2018-12-24] MEDS: FOLIC ACID 1 MG TAB PO SCH (08:20)
[2018-12-24] MEDS: FLUoxetine HCL 20 MG CAP PO SCH (08:20)
[2018-12-24] MEDS: FUROSEMIDE 20 MG TAB PO SCH (08:20)
[2018-12-24] MEDS: SPIRONOLACTONE 25 MG TAB PO SCH (08:20)
[2018-12-24] MEDS: PANTOPRAZOLE SOD 40 MG TABEC PO SCH ×2 (08:20→20:25)
[2018-12-24] MEDS: THIAMINE HCL 100 MG TAB PO SCH (08:20)
[2018-12-24] MEDS: MULTIVITAMINS PO SCH (08:20)
[2018-12-24] MEDS: IBUPROFEN 600 MG TAB PO PRN (08:20)
[2018-12-24 08:27] VITALS: BP 133/83
[2018-12-24] MEDS: hydrOXYzine PAMOATE 25 MG CAP PO PRN ×2 (09:27→21:19)
--- NOTE | 2018-12-24 11:30 | BHS Progress Note ---
[facility] - Subjective Progress Notes Subjective "I feel pretty good." She rates anxiety level a 10 and depression level a 10. She denies SI. She reports sleeping well, denies stomach upset. She has information about residential treatment facilities and is asking for information about the [facility]. She is walking without a walker today which is an improv ement. Suicidal Ideation: None Homicidal Ideation: None [facility] - Objective Physical Exam Vital Signs Vital Signs Date Time Temp Pulse Resp B/P (MAP) Pulse Ox O2 Delivery O2 Flow Rate FiO2 12/24/18 08:27 98.4 79 16 133/83 (100) 92 Room Air 12/21/18 04:30 2.0 Muscle Strength and Tone: Other (improving) Gait and Station: Unsteady [facility] Medications Reviewed: Side Effects, Benefits of Medication, Risks Allergies Reviewed: Yes Mental Status Exam General Appearance: Good Eye Contact, Cooperative, Polite, Good Interaction, Psychomotor Retardation; No Bizarre Mannerisms, No Tics Speech: Normal Tone, Delayed Mood: Dysthmic/Depressed Affect: Calm, Flat, Withdrawn Thought Process: Logical, Goal Directed; No Loose Associations, No Flight of Ideas Thought Content: No Suicidal Ideation, No Homicidal Ideation, No Delusions, No Auditory Halllucinations, No Visual Hallucinations, No Thought Broadcasting, No Ideas of Reference, No Obsessions, No Compulsions Sensorium: Other (clouded) Cognition: Alert & Oriented-Person, Alert & Oriented-Place; No Alert & Oriented-Time (partially); Bqdaa-Cbegkinb-Eqrdrrwqh (partially) Memory: Immediate, Recent, Remote Intelligence: Average Insight Judgment: Fair (improving) Result Diagram: 12/23/18 0555 12/23/18 0555 [facility] Assessment and Plan Xglj-xz-Hgmc Encounter Date: Dec 24, 2018 Wnti-az-Qduw Encounter Time: 08:30 [facility] Plan: Necessary Precautions, Individual/Group Therapy, Admin/Titrate Meds, Educate Patient Tobacco Medications: Not Appropriate Condition Multpiple Antipsychotics Used: No Problems: (1) Alcohol abuse Status: Chronic Condition Alcohol withdrawal is complete. She is walking without a walker today and is eating without problems. She is voicing motivation for residential treatment and is reviewing her options. She was started on PRN hydroxyzine yesterday for complaint of anxiety. Her memory continues to be poor and she didn't remember that this was available or that she had been prescribed this at home. We will continue discharge planning. ARMANDO MORATAYA NP Dec 24, 2018 11:30
[2018-12-24 19:45] VITALS: BP 106/57
[2018-12-25] MEDS: SUCRALFATE 1 GM TAB PO SCH ×4 (06:08→20:38)
[2018-12-25 06:15] VITALS: BP 114/64
[2018-12-25] MEDS: SPIRONOLACTONE 25 MG TAB PO SCH (08:44)
[2018-12-25] MEDS: POTASSIUM CHL 10 MEQ TABCR PO SCH ×2 (08:44→16:53)
[2018-12-25] MEDS: THIAMINE HCL 100 MG TAB PO SCH (08:44)
[2018-12-25] MEDS: IBUPROFEN 600 MG TAB PO PRN (08:44)
[2018-12-25] MEDS: FLUoxetine HCL 20 MG CAP PO SCH (08:44)
[2018-12-25] MEDS: FUROSEMIDE 20 MG TAB PO SCH (08:44)
[2018-12-25] MEDS: FOLIC ACID 1 MG TAB PO SCH (08:44)
[2018-12-25] MEDS: LACTULOSE 10 GM/15 ML UDCUP PO SCH ×3 (08:44→20:38)
[2018-12-25] MEDS: MULTIVITAMINS PO SCH (08:44)
[2018-12-25] MEDS: PANTOPRAZOLE SOD 40 MG TABEC PO SCH ×2 (08:44→20:38)
--- NOTE | 2018-12-25 11:44 | BHS Progress Note ---
[facility] - Subjective Progress Notes Subjective Patient continues to improve, alcohol withdrawal now complete, overall confusion and ambulation continue to slowly improve. Patient is demonstrating ambivalence regarding entering rehab or returning home. Will look into rehab further, and continue to monitor improvement. No other concerns today. Interacting well with on phone today. Sleep improved, will have labs in AM Suicidal Ideation: None Homicidal Ideation: None [facility] - Objective Physical Exam Vital Signs Vital Signs Date Time Temp Pulse Resp B/P (MAP) Pulse Ox O2 Delivery O2 Flow Rate FiO2 12/25/18 06:15 98.1 66 15 114/64 (81) 95 Room Air Muscle Strength and Tone: Other (improving) Gait and Station: Unsteady [facility] Medications Reviewed: Side Effects, Benefits of Medication, Risks Allergies Reviewed: Yes Mental Status Exam General Appearance: Well Groomed, Good Eye Contact, Cooperative, Polite, Good Interaction, Psychomotor Retardation; No Bizarre Mannerisms, No Tics Speech: Clear, Spontaneous, Normal Rate (slowed), Normal Rhythm; No Normal Volume; Normal Tone, Delayed Mood: Dysthmic/Depressed (about being in the hospital. ) Affect: Calm, Flat, Withdrawn Thought Process: Logical, Goal Directed; No Loose Associations, No Flight of Ideas Thought Content: No Suicidal Ideation, No Homicidal Ideation, No Delusions, No Auditory Halllucinations, No Visual Hallucinations, No Thought Broadcasting, No Ideas of Reference, No Obsessions, No Compulsions Sensorium: Other (clouded, but improving) Cognition: Alert & Oriented-Person, Alert & Oriented-Place, Alert & Oriented- Time, Fnvmu-Hvqzjjrk-Emduflmiv (partially) Memory: Immediate, Recent, Remote Intelligence: Average Insight Judgment: Fair (improving) Result Diagram: 12/23/18 0555 12/23/18 0555 [facility] Assessment and Plan Ojxs-ig-Xbck Encounter Date: Dec 25, 2018 Rszr-dv-Mqim Encounter Time: 11:00 [facility] Plan: Necessary Precautions, Individual/Group Therapy, Admin/Titrate Meds, Educate Patient Tobacco Medications: Not Appropriate Condition Multpiple Antipsychotics Used: No Problems: (1) Alcohol use disorder, severe, in controlled environment Status: Chronic (2) Alcohol withdrawal Status: Resolved Condition 1. will continue to monitor labs and cognitive improvement. 2. will look into treatment residential. JANNETTE FLORES MD Dec 25, 2018 11:43
[2018-12-25 14:46] VITALS: BP 125/77
[2018-12-25 21:00] VITALS: BP 116/68
[2018-12-26 06:20] LABS: PLATELET COUNT, AUTOMATED 97 K/uL (150-450)
[2018-12-26 06:23] VITALS: BP 122/67
[2018-12-26] MEDS: SUCRALFATE 1 GM TAB PO SCH ×4 (06:25→20:36)
[2018-12-26] MEDS: POTASSIUM CHL 10 MEQ TABCR PO SCH ×2 (08:10→17:04)
[2018-12-26] MEDS: FUROSEMIDE 20 MG TAB PO SCH (08:11)
[2018-12-26] MEDS: SPIRONOLACTONE 25 MG TAB PO SCH (08:11)
[2018-12-26] MEDS: FLUoxetine HCL 20 MG CAP PO SCH (08:11)
[2018-12-26] MEDS: MULTIVITAMINS PO SCH (08:11)
[2018-12-26] MEDS: FOLIC ACID 1 MG TAB PO SCH (08:11)
[2018-12-26] MEDS: THIAMINE HCL 100 MG TAB PO SCH (08:11)
[2018-12-26] MEDS: LACTULOSE 10 GM/15 ML UDCUP PO SCH ×3 (08:11→20:35)
[2018-12-26] MEDS: PANTOPRAZOLE SOD 40 MG TABEC PO SCH ×2 (08:11→20:36)
[2018-12-26] MEDS: MAGNESIUM OXIDE 400 MG TAB PO SCH ×2 (10:46→20:36)
--- NOTE | 2018-12-26 10:48 | BHS Progress Note ---
[facility] - Subjective Progress Notes Subjective Patient continues to improve, ambulation, and cognition improving and laboratory data improving as well. Will continue lactulose for now and start oral magnesium today. Patient abble to verbalize acceptance of going to rehab with first bed opening in [place], toward end of week. Will encourage entrance directly into this program. No other concerns. Suicidal Ideation: None Homicidal Ideation: None S - Objective Physical Exam Vital Signs Hematology Test 12/22/18 09:20 12/22/18 13:21 12/23/18 05:55 12/26/18 05:59 Urine Color Yellow Urine Clarity Clear Urine pH 8.0 pH (4.8-9.5) Urine Specific [place] 1.014 Urine Protein Negative mg/dL (NEGATIVE) Urine Glucose (UA) Negative mg/dL (NEGATIVE) Urine Ketones Negative mg/dL (NEGATIVE) Urine Blood Negative (NEGATIVE) Urine Nitrite Negative (NEGATIVE) Urine Bilirubin Negative (NEGATIVE) Urine Urobilinogen 4.0 mg/dL (0.2-1.9) Urine Leukocyte Esterase Negative (NEGATIVE) Urine RBC <1 /HPF (0-2/HPF) Urine WBC 3 /HPF (0-5/HPF) Urine Squamous Epithelial Cells Many /LPF (</=FEW) Urine Transitional Epithelial Cells Few /LPF (NONE-FEW) Urine Bacteria Few /HPF (NONE-FEW) Urine Mucus None /HPF (NONE-FEW) Tuberculin Skin Test 0 mm Peripheral Blood Smear No Y/N Red Blood Count 3.35 M/uL (4.17-5.56) Mean Corpuscular Volume 85.9 fL (80.0-96.0) Mean Corpuscular Hemoglobin 29.6 pg (26.0-33.0) Mean Corpuscular Hemoglobin Concent 34.4 g/dL (32.0-36.0) Red Cell Distribution Width 18.8 % (11.5-14.5) Mean Platelet Volume 7.7 fL (7.2-11.1) Neutrophils (%) (Auto) 49.3 % (39.4-72.5) Lymphocytes (%) (Auto) 33.7 % (17.6-49.6) Monocytes (%) (Auto) 10.7 % (4.1-12.4) Eosinophils (%) (Auto) 4.9 % (0.4-6.7) Basophils (%) (Auto) 1.4 % (0.3-1.4) Nucleated RBC Relative Count (auto) 0.0 /100WBC Neutrophils # (Auto) 2.3 K/uL (2.0-7.4) Lymphocytes # (Auto) 1.6 K/uL (1.3-3.6) Monocytes # (Auto) 0.5 K/uL (0.3-1.0) Eosinophils # (Auto) 0.2 K/uL (0.0-0.5) Basophils # (Auto) 0.1 K/uL (0.0-0.1) Nucleated RBC Absolute Count (auto) 0.00 K/uL Sodium Level 136 mmol/L (137-145) Potassium Level 4.1 mmol/L (3.5-5.0) Chloride Level 103 mmol/L (98-107) Carbon Dioxide Level 25 mmol/L (22-31) Blood Urea Nitrogen 13 mg/dl (7-18) Creatinine 0.90 mg/dl (0.52-1.04) Glomerular Filtration Rate Calc > 60.0 Random Glucose 85 mg/dl (75-110) Calcium Level 9.0 mg/dl (8.4-10.2) Magnesium Level 1.6 mg/dl (1.7-2.2) Total Bilirubin 2.5 mg/dl (0.2-1.3) Aspartate Amino Transf (AST/SGOT) 40 U/L (0-35) Alanine Aminotransferase (ALT/SGPT) 32 U/L (0-56) Alkaline Phosphatase 140 U/L (0-126) Ammonia 22 UMOL/L (9-33) Total Protein 6.3 g/dl (6.3-8.2) Albumin 3.1 g/dl (3.5-5.0) Chemistry Test 12/22/18 09:20 12/22/18 13:21 12/23/18 05:55 12/26/18 05:59 Urine Color Yellow Urine Clarity Clear Urine pH 8.0 pH (4.8-9.5) Urine Specific [place] 1.014 Urine Protein Negative mg/dL (NEGATIVE) Urine Glucose (UA) Negative mg/dL (NEGATIVE) Urine Ketones Negative mg/dL (NEGATIVE) Urine Blood Negative (NEGATIVE) Urine Nitrite Negative (NEGATIVE) Urine Bilirubin Negative (NEGATIVE) Urine Urobilinogen 4.0 mg/dL (0.2-1.9) Urine Leukocyte Esterase Negative (NEGATIVE) Urine RBC <1 /HPF (0-2/HPF) Urine WBC 3 /HPF (0-5/HPF) Urine Squamous Epithelial Cells Many /LPF (</=FEW) Urine Transitional Epithelial Cells Few /LPF (NONE-FEW) Urine Bacteria Few /HPF (NONE-FEW) Urine Mucus None /HPF (NONE-FEW) Tuberculin Skin Test 0 mm Peripheral Blood Smear No Y/N White Blood Count 4.7 k/uL (4.5-11.0) Red Blood Count 3.35 M/uL (4.17-5.56) Hemoglobin 9.9 g/dL (12.0-16.0) Hematocrit 28.8 % (34.0-47.0) Mean Corpuscular Volume 85.9 fL (80.0-96.0) Mean Corpuscular Hemoglobin 29.6 pg (26.0-33.0) Mean Corpuscular Hemoglobin Concent 34.4 g/dL (32.0-36.0) Red Cell Distribution Width 18.8 % (11.5-14.5) Platelet Count 97 K/uL (150-450) Mean Platelet Volume 7.7 fL (7.2-11.1) Neutrophils (%) (Auto) 49.3 % (39.4-72.5) Lymphocytes (%) (Auto) 33.7 % (17.6-49.6) Monocytes (%) (Auto) 10.7 % (4.1-12.4) Eosinophils (%) (Auto) 4.9 % (0.4-6.7) Basophils (%) (Auto) 1.4 % (0.3-1.4) Nucleated RBC Relative Count (auto) 0.0 /100WBC Neutrophils # (Auto) 2.3 K/uL (2.0-7.4) Lymphocytes # (Auto) 1.6 K/uL (1.3-3.6) Monocytes # (Auto) 0.5 K/uL (0.3-1.0) Eosinophils # (Auto) 0.2 K/uL (0.0-0.5) Basophils # (Auto) 0.1 K/uL (0.0-0.1) Nucleated RBC Absolute Count (auto) 0.00 K/uL Glomerular Filtration Rate Calc > 60.0 Calcium Level 9.0 mg/dl (8.4-10.2) Magnesium Level 1.6 mg/dl (1.7-2.2) Total Bilirubin 2.5 mg/dl (0.2-1.3) Aspartate Amino Transf (AST/SGOT) 40 U/L (0-35) Alanine Aminotransferase (ALT/SGPT) 32 U/L (0-56) Alkaline Phosphatase 140 U/L (0-126) Ammonia 22 UMOL/L (9-33) Total Protein 6.3 g/dl (6.3-8.2) Albumin 3.1 g/dl (3.5-5.0) Urinalysis Test 12/22/18 09:20 Urine Color Yellow Urine Clarity Clear Urine pH 8.0 pH (4.8-9.5) Urine Specific [place] 1.014 Urine Protein Negative mg/dL (NEGATIVE) Urine Glucose (UA) Negative mg/dL (NEGATIVE) Urine Ketones Negative mg/dL (NEGATIVE) Urine Blood Negative (NEGATIVE) Urine Nitrite Negative (NEGATIVE) Urine Bilirubin Negative (NEGATIVE) Urine Urobilinogen 4.0 mg/dL (0.2-1.9) Urine Leukocyte Esterase Negative (NEGATIVE) Urine RBC <1 /HPF (0-2/HPF) Urine WBC 3 /HPF (0-5/HPF) Urine Squamous Epithelial Cells Many /LPF (</=FEW) Urine Transitional Epithelial Cells Few /LPF (NONE-FEW) Urine Bacteria Few /HPF (NONE-FEW) Urine Mucus None /HPF (NONE-FEW) Vital Signs Date Time Temp Pulse Resp B/P (MAP) Pulse Ox O2 Delivery O2 Flow Rate FiO2 12/26/18 06:23 98.0 70 15 122/67 (85) 97 Room Air Muscle Strength and Tone: Other (improving) Gait and Station: Unsteady (improving today) [facility] Medications Reviewed: Side Effects, Benefits of Medication, Risks Allergies Reviewed: Yes Mental Status Exam General Appearance: Casual, Well Groomed, Good Eye Contact, Cooperative, Polite, Good Interaction, Psychomotor Retardation (less today) Speech: Clear, Spontaneous, Normal Rate, Normal Rhythm, Normal Tone, Delayed Mood: Dysthmic/Depressed (improved) Affect: Calm, Neutral; No Flat; Withdrawn; No Tearful, No Anxious Thought Process: Organized, Logical, Goal Directed; No Loose Associations, No Flight of Ideas Thought Content: No Suicidal Ideation, No Homicidal Ideation, No Delusions, No Auditory Halllucinations, No Visual Hallucinations, No Thought Broadcasting, No Ideas of Reference, No Obsessions, No Compulsions Sensorium: Clear Cognition: Alert & Oriented-Person, Alert & Oriented-Place, Alert & Oriented- Time, Nfmjv-Ihfeiacd-Mwteopmqj Memory: Immediate, Recent, Remote Intelligence: Average Insight Judgment: Fair (improving in absence of alcohol) Result Diagram: 12/26/18 0559 12/26/18 0559 [facility] Assessment and Plan Ncny-yo-Edfn Encounter Date: Dec 26, 2018 Narc-ms-Motb Encounter Time: 10:00 [facility] Plan: Necessary Precautions, Individual/Group Therapy, Admin/Titrate Meds, Educate Patient Tobacco Medications: Not Appropriate Condition Multpiple Antipsychotics Used: No Problems: (1) Alcohol use disorder, severe, in controlled environment Status: Chronic (2) Alcohol withdrawal Status: Resolved Condition 1. start Magnesium oxide. 2. solidify plans for rehab entrance this week. JANNETTE FLORES MD Dec 26, 2018 10:48
[2018-12-26 11:02] VITALS: BP 129/74
[2018-12-26 16:39] VITALS: BP 123/82
[2018-12-27 05:29] VITALS: BP 106/59
[2018-12-27] MEDS: SUCRALFATE 1 GM TAB PO SCH ×4 (06:06→20:16)
[2018-12-27] MEDS: POTASSIUM CHL 10 MEQ TABCR PO SCH ×2 (08:05→16:54)
[2018-12-27] MEDS: FUROSEMIDE 20 MG TAB PO SCH (08:06)
[2018-12-27] MEDS: MAGNESIUM OXIDE 400 MG TAB PO SCH ×2 (08:06→20:16)
[2018-12-27] MEDS: FLUoxetine HCL 20 MG CAP PO SCH (08:06)
[2018-12-27] MEDS: FOLIC ACID 1 MG TAB PO SCH (08:06)
[2018-12-27] MEDS: PANTOPRAZOLE SOD 40 MG TABEC PO SCH ×2 (08:06→20:16)
[2018-12-27] MEDS: SPIRONOLACTONE 25 MG TAB PO SCH (08:06)
[2018-12-27] MEDS: LACTULOSE 10 GM/15 ML UDCUP PO SCH ×3 (08:06→20:15)
[2018-12-27] MEDS: MULTIVITAMINS PO SCH (08:07)
[2018-12-27] MEDS: THIAMINE HCL 100 MG TAB PO SCH (08:09)
--- NOTE | 2018-12-27 10:18 | BHS Progress Note ---
[facility] - Subjective Progress Notes Subjective Patient continues to improve, cognition clearing with reduced ammonia level. and ambulation continues to improve. Patient willing and verbalizes a desire to enter rehab in [place]. Will work to secure a bed and plan for discharge under direct supervision to enter rehab, due to risk of relapse. Appetite and sleep good, and able to attend to activities of daily living, no other concerns. Suicidal Ideation: None Homicidal Ideation: None [facility] - Objective Physical Exam Vital Signs Vital Signs Date Time Temp Pulse Resp B/P (MAP) Pulse Ox O2 Delivery O2 Flow Rate FiO2 12/27/18 05:29 98.1 75 15 106/59 (75) 93 Room Air Muscle Strength and Tone: Other (improving) Gait and Station: Unsteady (improving today) [facility] Medications Reviewed: Side Effects, Benefits of Medication, Risks Allergies Reviewed: Yes Mental Status Exam General Appearance: Casual, Well Groomed, Good Eye Contact, Cooperative, Polite, Good Interaction; No Psychomotor Agitation, No Psychomotor Retardation, No Bizarre Mannerisms, No Tics Speech: Clear, Spontaneous, Normal Rate, Normal Rhythm, Normal Tone, Delayed; No Garbled, No Rambling Mood: Euthymic Affect: Calm, Neutral; No Flat; Withdrawn; No Tearful, No Anxious Thought Process: Organized, Logical, Goal Directed; No Loose Associations, No Flight of Ideas Thought Content: No Suicidal Ideation, No Homicidal Ideation, No Delusions, No Auditory Halllucinations, No Visual Hallucinations, No Thought Broadcasting, No Ideas of Reference, No Obsessions, No Compulsions Sensorium: Clear Cognition: Alert & Oriented-Person, Alert & Oriented-Place, Alert & Oriented- Time, Kiwsj-Wgtghmyz-Xwywnhabs Memory: Immediate, Recent, Remote Intelligence: Average Insight Judgment: Fair (improving in absence of alcohol) Result Diagram: 12/26/18 0559 12/26/18 0559 [facility] Assessment and Plan [id number] Encounter Date: Dec 27, 2018 Mdhi-rv-[id number] Encounter Time: 09:00 [facility] Plan: Necessary Precautions, Individual/Group Therapy, Admin/Titrate Meds, Educate Patient Tobacco Medications: Not Appropriate Condition Multpiple Antipsychotics Used: No Problems: (1) Alcohol use disorder, severe, in controlled environment Status: Chronic (2) Alcohol withdrawal Status: Resolved Condition 1. solidify plans to enter treatment. 2. labs in AM. JANNETTE FLORES MD Dec 27, 2018 10:18
[2018-12-28 03:58] VITALS: BP 103/60
[2018-12-28] MEDS: SUCRALFATE 1 GM TAB PO SCH ×4 (06:30→21:02)
[2018-12-28 06:51] LABS: PLATELET COUNT, AUTOMATED 101 K/uL (150-450)
[2018-12-28] MEDS: FOLIC ACID 1 MG TAB PO SCH (08:36)
[2018-12-28] MEDS: PANTOPRAZOLE SOD 40 MG TABEC PO SCH ×2 (08:36→21:02)
[2018-12-28] MEDS: FUROSEMIDE 20 MG TAB PO SCH (08:36)
[2018-12-28] MEDS: LACTULOSE 10 GM/15 ML UDCUP PO SCH ×3 (08:36→21:02)
[2018-12-28] MEDS: SPIRONOLACTONE 25 MG TAB PO SCH (08:36)
[2018-12-28] MEDS: POTASSIUM CHL 10 MEQ TABCR PO SCH ×2 (08:36→17:14)
[2018-12-28] MEDS: MAGNESIUM OXIDE 400 MG TAB PO SCH ×2 (08:36→21:02)
[2018-12-28] MEDS: MULTIVITAMINS PO SCH (08:37)
[2018-12-28] MEDS: FLUoxetine HCL 20 MG CAP PO SCH (08:37)
[2018-12-28] MEDS: THIAMINE HCL 100 MG TAB PO SCH (08:37)
--- NOTE | 2018-12-28 09:29 | BHS Progress Note ---
[facility] - Subjective Progress Notes Subjective Patient continues to slowly improve on the unit, oriented X 4 today. Mood good, stable, appetite and sleep good. Patient continues to indicate a desire to abstain, will finalize plans today for likely discharge tomorrow. No other concerns. Suicidal Ideation: None Homicidal Ideation: None [facility] - Objective Physical Exam Vital Signs Vital Signs Date Time Temp Pulse Resp B/P (MAP) Pulse Ox O2 Delivery O2 Flow Rate FiO2 12/28/18 03:58 98.4 71 15 103/60 (74) 91 Room Air Muscle Strength and Tone: Other (baseline) Gait and Station: Steady [facility] Medications Reviewed: Side Effects, Benefits of Medication, Risks Allergies Reviewed: Yes Mental Status Exam General Appearance: Casual, Well Groomed, Good Eye Contact, Cooperative, Polite, Good Interaction; No Psychomotor Agitation, No Psychomotor Retardation, No Bizarre Mannerisms, No Tics Speech: Clear, Spontaneous, Normal Rate, Normal Rhythm, Normal Tone, Delayed; No Garbled, No Rambling Mood: Euthymic Affect: Calm, Neutral; No Flat; Withdrawn; No Tearful, No Anxious Thought Process: Organized, Logical, Goal Directed; No Loose Associations, No Flight of Ideas Thought Content: No Suicidal Ideation, No Homicidal Ideation, No Delusions, No Auditory Halllucinations, No Visual Hallucinations, No Thought Broadcasting, No Ideas of Reference, No Obsessions, No Compulsions Sensorium: Clear Cognition: Alert & Oriented-Person, Alert & Oriented-Place, Alert & Oriented- Time, Glyun-Mtrzpydz-Kxokzbxqa Memory: Immediate, Recent, Remote Intelligence: Average Insight Judgment: Fair (improving in absence of alcohol) Result Diagram: 12/28/18 0636 12/28/18 0636 [facility] Assessment and Plan Phen-eh-Tnbg Encounter Date: Dec 28, 2018 Fizx-fn-Lnbk Encounter Time: 09:00 [facility] Plan: Necessary Precautions, Individual/Group Therapy, Admin/Titrate Meds, Educate Patient Tobacco Medications: Not Appropriate Condition Multpiple Antipsychotics Used: No Problems: (1) Alcohol use disorder, severe, in controlled environment Status: Chronic (2) Alcohol withdrawal Status: Resolved Condition 1. continue treatment. 2. finalize discharge plans. 3. likely discharge tomorrow. JANNETTE FLORES MD Dec 28, 2018 09:29
[2018-12-28 11:11] VITALS: BP 140/85
[2018-12-29 05:50] VITALS: BP 116/71
[2018-12-29] MEDS: SUCRALFATE 1 GM TAB PO SCH (06:00)
[2018-12-29] MEDS: FUROSEMIDE 20 MG TAB PO SCH (08:01)
[2018-12-29] MEDS: PANTOPRAZOLE SOD 40 MG TABEC PO SCH (08:01)
[2018-12-29] MEDS: MAGNESIUM OXIDE 400 MG TAB PO SCH (08:01)
[2018-12-29] MEDS: FLUoxetine HCL 20 MG CAP PO SCH (08:01)
[2018-12-29] MEDS: POTASSIUM CHL 10 MEQ TABCR PO SCH (08:01)
[2018-12-29] MEDS: FOLIC ACID 1 MG TAB PO SCH (08:01)
[2018-12-29] MEDS: LACTULOSE 10 GM/15 ML UDCUP PO SCH (08:01)
[2018-12-29] MEDS: SPIRONOLACTONE 25 MG TAB PO SCH (08:01)
[2018-12-29] MEDS: MULTIVITAMINS PO SCH (08:01)
[2018-12-29] MEDS: THIAMINE HCL 100 MG TAB PO SCH (08:02)
[2018-12-29] MEDS ORDERED: SUCR1TAB85 PO (09:31)
[2018-12-29] MEDS ORDERED: LACT10SO82 PO (09:32)
[2018-12-29] MEDS ORDERED: MULT-859 PO (09:32)
[2018-12-29] MEDS ORDERED: IBUP-1671 PO (09:33)
--- NOTE | 2019-01-02 04:32 | SCHAAF DISCHARGE ---
DATE OF ADMISSION: December 20, 2018 DATE OF DISCHARGE: December 29, 2018 ATTENDING PHYSICIAN Eric Wright MD Patient was seen in the a.m. of 29 December 2018 at approximately 0900 hours for note concerning this dictation. FINAL DIAGNOSES Alcohol use disorder, severe. 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 Patient has a supportive relationship overall with parents and . REASON FOR ADMISSION This is a very polite 48-year-old female who initially was admitted to the medical floor on December 18, where she remained until December 20, secondary to alcohol use on top of chronic alcoholic liver disease. She was in a state of hypoxia at the time of admission. This resolved when patient was transferred on a voluntary basis to the [facility] on December 20 for further care of alcohol withdrawal and to allow time for patient to ambulate and recover to where she could be discharged from the hospital. Patient throughout her stay was very cooperative and polite. Patient's overall cognition remained impaired. Ammonia levels were elevated; however, this resolved by the time of discharge as well with the addition of lactulose. Patient's alcohol withdrawal was treated to completion with lorazepam via [facility] protocol here on the [facility]. Different avenues for continued sobriety were discussed and explored, including entrance into rehab; however, no rehab bed could be secured in a timely manner. Patient did fully understand the necessity to stop consuming alcohol at this time and was discharged to home in the care of her mother. PHYSICAL EXAMINATION Please see emergency room notes and medical floor notes. Vital signs at the time of discharge from [facility] floor showed temperature 98.0, pulse 65, respiratory rate 14, blood pressure 116/71, pulse oximetry 93% on room air. LABORATORY DATA On 12/28/2018, CBC was notable for RBCs low at 3.55, hemoglobin and hematocrit low at 10.2 and 30.2 respectively; however, they were improving. Platelets remained low as well at 101, however, also improving. Chemistry panel on 12/28/18 notable for magnesium low at 1.6, total bilirubin elevated at 2.5, AST elevated at 47 and falling. Ammonia level was elevated at 39. Urinalysis on 12/22/18 showed urine urobilinogen present, otherwise unremarkable. PPD was negative. MENTAL STATUS EXAMINATION AT TIME OF DISCHARGE GENERAL APPEARANCE, BEHAVIOR AND ATTITUDE: This is a very pleasant 48-year-old female with some jaundice present. Patient very cooperative, making good eye contact. No periods of tearfulness. SPEECH: Within normal limits. Regular rate, rhythm, volume and tone. MOOD: Described as improved. AFFECT: Full and bright at times. Overall mood congruent. THOUGHT PROCESSES: Goal directed and logical. No loose associations or flight of ideas. THOUGHT CONTENT: Free of auditory or visual hallucinations, ideas of reference, thought broadcastings, delusions, obsessions or compulsions. Patient adamantly suicidal or homicidal ideation. SENSORIUM: Clear. COGNITION: Alert and oriented to person, place, time and situation. MEMORY: Immediate, recent and remote estimated intact. INTELLIGENCE: Average, based on interview. INSIGHT AND JUDGMENT: Considered grossly intact in the absence of alcohol use. RESULTS OF TESTING Imaging: None. Laboratory data: See above. Psychological testing: Not done. CONSULTATIONS None. TREATMENT Patient received medications, participated in individual and group therapy. HOSPITAL COURSE Patient initially admitted to medical floor acutely with acute alcohol intoxication on top of advanced hepatic disease. Patient's hypoxic condition quickly improved. Patient was later transferred to the Behavioral [facility] Unit for completion of alcohol withdrawal treatment, completed with lorazepam via [facility] protocol. Multiple rehab choices were looked into; none were available at time of discharge. Patient wanting to discharge to home. Patient made very slow recovery throughout her stay on [facility]. CONDITION OF PATIENT ON DISCHARGE Stable. Considered a minimal risk to herself or others in the absence of alcohol use. DISPOSITION Patient discharged to home in care of family members. Patient will remain on Prozac 40 mg daily, hydroxyzine p.r.n. as needed for insomnia, potassium chloride 10 mEq twice daily, spironolactone 25 mg daily, Carafate 1 g one hour before meals, lactulose 10 g three times a day, Lasix 20 mg daily, multivitamin with minerals daily. Patient agreed to abstain from alcohol, all acetaminophen- containing products, and was given the crisis line should symptoms return. Patient would follow up with outpatient provider for continued management of advanced hepatic disease. Crisis line was given should symptoms return. [facility]
== END 2018-12-29 09:50 | disposition home or self-care (01) | DRG 897 ==
LOC: BHS 16:48
PROVIDERS: ADMIT Psychiatry & Neurology Psychiatry; ATTEND Psychiatry & Neurology Psychiatry
DX: F10.230 Alcohol dependence with withdrawal, uncomplicated (principal); F10.288 Alcohol dependence with other alcohol-induced disorder; K70.30 Alcoholic cirrhosis of liver without ascites
CPT/HCPCS: 36415; 81001; 82040; 82140; 82247; 82310; 82374; 82435; 82565; 82947; 83735; 84075; 84132; 84155; 84295; 84450; 84460; 84520; 85025; 86580; Q0177